=== PATIENT | female | born 1950 | race Caucasian/White ===

== ENCOUNTER 2024-03-07 10:53 | Observation (INO) | payer MEDICARE, BC, SELFPAY ==
[2024-03-07] VITALS (19 sets, daily range): BP systolic 133–169; BP diastolic 49–97; PULSE 73–83; RESP 14–18; TEMP 36.6–37; O2SAT 93–97; BMI 30.8; BMI 31.3
--- NOTE | 2024-03-07 | CRLHL7_ITS ---
For Patients: As a result of the Century Cures Act, medical imaging exams and procedure reports are released immediately into your electronic medical record. You may view this report before your referring provider. If you have questions, please contact your health care provider. Indication : Left-sided numbness. Technique : CT of the brain without intravenous contrast. Comparison: None relevant available at the time of interpretation. Findings: No acute blurring of the tanner-white differentiation. There is no intracranial hemorrhage. The ventricles are proportionate to the cerebral sulci. The 4th ventricle is midline. Basal cisterns appear patent. Small arachnoid cyst right middle cranial fossa. Mild parenchymal volume loss. There is mild patchy periventricular hypodensity, favored to represent chronic ischemic microvascular disease. There is no intracranial mass, mass effect or midline shift identified. No depressed calvarial fracture. Impression: 1. No acute intracranial process. 2. Mild chronic ischemic microvascular disease. The above findings were communicated over the telephone with Dr. Degroot By Dr. Petty at 1118 hours on 03/07/2024. Please note that all CT scans at this facility use dose modulation, iterative reconstruction, and/or weight-based dosing when appropriate to reduce radiation dose to as low as reasonably achievable. Dictated by Ron Petty MD @ 03/07/2024 11:21:27 AM (Electronically Signed)
--- NOTE | 2024-03-07 11:06 | CRLHL7_ITS ---
For Patients: As a result of the Century Cures Act, medical imaging exams and procedure reports are released immediately into your electronic medical record. You may view this report before your referring provider. If you have questions, please contact your health care provider. DATE: 03/07/2024 CLINICAL HISTORY: Patient with focal neurological deficits. TECHNIQUE: Standard helical CT image acquisition of the neck up to the skull base after bolus intravenous contrast enhancement. 2D and 3D MIP images for post-processing were performed and interpreted on an independent workstation and 3D images were permanently archived. COMPARISON: CT same day. 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 The origins of the great vessels from the aortic arch are patent. The origin of the right vertebral artery is patent. The origin of the left vertebral artery is patent. The common carotid arteries are patent. There is no stenosis at the origin of the right internal carotid artery. There is no stenosis at the origin of the left internal carotid artery. There is a short non-occlusive dissection in the proximal cervical segment of the right internal carotid artery without luminal narrowing. The rest of the cervical segments of the internal carotid arteries are patent up to the skull base. The left vertebral artery is dominant. The cervical segments of the vertebral arteries are patent up to the skull base. The visualized lung apices are unremarkable. The thyroid gland demonstrates a 14mm rim-calcified nodule in its right lobe. The soft tissues of the neck are unremarkable. There are degenerative changes in the cervical spine. IMPRESSION: 1. 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 Patent rest of the cervical vasculature. 2. 1.4cm rim-calcified right thyroid nodule. Further evaluation with ultrasound is recommended. Please note that all CT scans at this facility use dose modulation, iterative reconstruction, and/or weight-based dosing when appropriate to reduce radiation dose to as low as reasonably achievable. Dictated by Domingo Smith MD @ 03/07/2024 12:41:11 PM (Electronically Signed)
--- NOTE | 2024-03-07 11:06 | CRLHL7_ITS ---
For Patients: As a result of the Century Cures Act, medical imaging exams and procedure reports are released immediately into your electronic medical record. You may view this report before your referring provider. If you have questions, please contact your health care provider. DATE: 03/07/2024 CLINICAL HISTORY: Patient with focal neurological deficits. TECHNIQUE: Standard helical CT image acquisition through the intracranial circulation following intravenous administration of contrast material with bolus tracking. 2D and 3D MIP images for post-processing were performed and interpreted on an independent workstation and 3D images were permanently archived. COMPARISON: CT same day. FINDINGS: There is no cerebral aneurysm or large vessel occlusion. The right internal carotid artery is normal. The right middle cerebral artery and its branches are normal. The right anterior cerebral artery and its branches are normal. The left internal carotid artery is normal. The left middle cerebral artery and its branches are normal. The left anterior cerebral artery and its branches are normal. The anterior communicating artery is well visualized and appears normal. The right vertebral artery and PICA are normal. The left vertebral artery and PICA are normal. The left vertebral artery is dominant. The basilar artery is patent and appears normal. The right posterior cerebral artery is normal. The left posterior cerebral artery is normal. IMPRESSION: Patent proximal intracranial vasculature without intracranial aneurysms. Please note that all CT scans at this facility use dose modulation, iterative reconstruction, and/or weight-based dosing when appropriate to reduce radiation dose to as low as reasonably achievable. Dictated by Domingo Smith MD @ 03/07/2024 12:42:54 PM (Electronically Signed)
[2024-03-07 11:22] LABS: Basophils Absolute Auto 0.04 K/uL (0.00-0.30); Basophils Percent Auto 0.7 % (0.0-3.0); Eosinophils Absolute Auto 0.12 K/uL (0.00-0.50); Hematocrit 45.2 % (33.0-51.0); Immature Granulocytes Abs Auto 0.01 K/uL (0.00-0.30); Immature Granulocytes Pct Auto 0.2 %; Lymphocytes Percent Auto 19.6 % (20-44); Mean Corpuscular HGB Conc 33 gm/dL (32-36); Mean Corpuscular Hemoglobin 29 pg (26-34); Mean Corpuscular Volume 87 fL (80-100); Monocytes Percent Auto 7.2 % (0.0-11.0); Neutrophils Absolute Auto 4.12 K/uL (1.7-7.0); Neutrophils Percent Auto 70.3 % (42.0-72.0); Platelet Count* 255 K/uL (140-440); RDW Coefficient of Variation % 12.5 % (11.5-15.5); Red Blood Count 5.19 m/uL (4.00-5.20); White Blood Count* 5.86 K/uL (4.50-11.00)
[2024-03-07 11:23] LABS: Slide Review Reflex No
--- NOTE | 2024-03-07 11:27 | CRLHL7_ITS ---
For Patients: As a result of the Century Cures Act, medical imaging exams and procedure reports are released immediately into your electronic medical record. You may view this report before your referring provider. If you have questions, please contact your health care provider. Indication: Stroke. Technique: Multiplanar, multisequence MRI of the brain was performed without intravenous contrast. Comparison: CT head earlier the same day. Findings: The corpus callosum, pituitary gland and clivus appear intact. Mild degenerative change visualized upper cervical spine. There is an 8 mm focus of restricted diffusion within the right thalamus. Associated T2 FLAIR hyperintensity. The ventricles are proportionate to the cerebral sulci. The 4th ventricle appears midline. The basal cisterns appear patent. No abnormal extra-axial fluid collection identified. There is no intracranial mass, abnormal mass-effect or midline shift identified. Mild parenchymal volume loss. Utpe-xi-nnpgijqr scattered T2 FLAIR hyperintense foci within the subcortical and periventricular white matter, favored to represent chronic ischemic microvascular disease. Major intracranial vascular flow voids appear grossly intact. There is a 16 mm T2 hyperintense structure within the extraconal left orbit. Impression: 1. Small acute/subacute right thalamic infarct. 2. Mild to moderate chronic ischemic microvascular disease. 3. Incidental T2 hyperintense structure within the extraconal left orbit. Nonemergent MRI of the orbits would provide further characterization. Dictated by Ron Petty MD @ 03/07/2024 12:33:56 PM (Electronically Signed)
[2024-03-07 11:35] LABS: Albumin* 4.1 g/dL (3.3-5.0); Chloride* 107 mmol/L (96-114)
[2024-03-07 11:36] LABS: Potassium* 3.6 mmol/L (3.6-5.1); Sodium* 140 mmol/L (135-149)
[2024-03-07 11:38] LABS: Creatinine* 0.6 mg/dL (0.5-1.5); Est. Creatinine Clearance* 43.74; Estimated Glomerular Filt Rate 94 ml/min
[2024-03-07 11:39] LABS: Alanine Aminotransferase* 20 U/L (4-35); Alkaline Phosphatase* 101 U/L (40-150); Anion Gap 5 mEq/L (7-15); Aspartate Amino Transferase* 23 U/L (12-35); Bilirubin Direct* 0.3 mg/dL (0.0-0.5); Bilirubin Total* 0.7 mg/dL (0.1-1.5); Blood Urea Nitrogen* 13 mg/dL (7-30); Calcium* 8.8 mg/dL (8.4-10.6); Carbon Dioxide* 28 mmol/L (20-32); Glucose* 104 mg/dL (60-115)
--- NOTE | 2024-03-07 11:41 | ED.GENADULT ---
HPI - General Adult General Chief complaint: Neuro Symptoms/Altered Deficit Stated complaint: L side of body numb Time Seen by Provider: 03/07/24 11:05 Source: patient Mode of arrival: ambulatory Limitations: no limitations History of Present Illness HPI narrative: 73-year-old female coming in today concerned about numbness of the left side of the body. Patient states that she went to bed around 1:00 a.m. and felt normal. She woke up around 4:00 a.m. to use the bathroom and felt slightly off balance. She had to put her arm out to get her to and from the bathroom. At that time she felt numbness of her face and the left side of the body. She then woke up around 9:00 a.m. and continue to have that numbness on the left side of the body including her head, arm and leg. She denies any weakness. She denies any slurred speech. She does not have a headache. 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 [facility] and is here visiting her sister. 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 She takes no prescription medications. Patient denies alcohol or tobacco use. Past surgical history significant for and a inguinal versus abdominal incisional hernia repair. Family history significant for TIAs when her father was in his 70s. Related Data Allergies Allergy/AdvReac Type Severity Reaction Status Date / Time azithromycin AdvReac Intermediate Gastrointestinal Verified 03/07/24 12:44 Upset cefuroxime [From Ceftin] AdvReac Intermediate Hives Verified 03/07/24 12:44 adhesive AdvReac Mild Redness of Verified 03/07/24 12:44 Skin bacitracin AdvReac Mild Redness of Verified 03/07/24 12:44 Skin amoxicillin AdvReac Insomnia Verified 03/07/24 12:44 Review of Systems Status of ROS: Reports: 10 or more systems reviewed and unremarkable except as noted in History and below Exam Narrative: Exam Narrative: Well-nourished well-developed patient in no acute distress. Alert and oriented. Answers questions appropriately. Mood and affect are appropriate. Thoughts are goal oriented and rational. No tangential or magical thinking noted. Patient speaks in full sentences without needing to catch her breath. GCS is 15. Speech is not slurred or pressured. HEENT: Normocephalic atraumatic. Normal facial symmetry. Pupils are equally round reactive to light. Extraocular muscles are intact. Conjunctivae are moist without any icterus noted. Moist mucous membranes. Posterior pharynx is normal. Neck is soft without any lymphadenopathy or thyromegaly. No masses are appreciated. Cardiovascular: Heart is regular rate and rhythm S1 and S2 are present without any murmurs. Lungs: Clear to auscultation bilaterally no wheezes rhonchi or rales are appreciated. Patient takes deep breaths without any discomfort. Abdomen: Soft and nontender nondistended with normal bowel sounds. No guarding or rebound. No masses or organomegaly appreciated. Extremities: Bilateral lower extremities are without edema. Normal DP and PT pulses. Skin: Well perfused without any obvious rashes aside from a small bug bite on the left cheek. Strength is 5/5 of the upper and lower extremities. Reflexes are 2+ and symmetric at the knees. Romberg sign is negative. Cranial nerves 3-12 are normal. Xbgoej-lv-tqov is normal. Afco-yc-gvfv is normal. There is no nystagmus either horizontally or vertically. Gait is normal. Const: Vital Signs, click to edit/add: Vital Signs - 24 hr 03/07/24 11:00 Temperature 98.6 F Pulse Rate [Pulse Oximeter] 82 Respiratory Rate 14 Blood Pressure [Ri ght Upper Arm] 169/91 H Pulse Oximetry 95 Oxygen Delivery Me thod Room Air Course Course ED Course: Upon arrival stroke code was called and after a very brief physical examination patient proceeded to CT scan. Head CT was unremarkable. Point of care troponin was within normal range so patient did proceed with a head and neck CTA. Just prior to going to CTA she did have an evaluation done by stroke neurologist at [facility], Dr. Arshad. EKG, read by me, shows normal sinus rhythm with a pulse of 81. Blood glucose upon arrival was 104. CBC and chemistries were unremarkable. CTA head and neck returned with a small dissection of the right internal carotid. Discussed this with Dr. Arshad who recommended 81 mg of aspirin and Plavix which were both ordered. Brain MRI returned with a small acute/subacute thalamic infarct. Discussed this with Dr. Arshad who recommends admission and further management. Vital Signs Vital signs: Initial Vital Signs Temperature 98.6 F 03/07/24 11:00 Temperature Source Temporal Artery Scan 03/07/24 11:00 Pulse Rate 82 03/07/24 11:00 Pulse Rhythm Regular 03/07/24 11:00 Respiratory Rate 14 03/07/24 11:00 Blood Pressure 169/91 H 03/07/24 11:00 Blood Pressure Mean 117 H 03/07/24 11:00 Blood Pressure Position Supine 03/07/24 11:00 Pulse Oximetry 95 03/07/24 11:00 Oxygen Delivery Method Room Air 03/07/24 11:00 Vital Signs Temperature 98.6 F 03/07/24 11:00 Pulse Rate 82 03/07/24 11:00 Respiratory Rate 14 03/07/24 11:00 Blood Pressure 169/91 H 03/07/24 11:00 Pulse Oximetry 95 03/07/24 11:00 Oxygen Delivery Method Room Air 03/07/24 11:00 Temperature 98.6 F 03/07/24 11:00 Pulse Rate 82 03/07/24 11:00 Respiratory Rate 14 03/07/24 11:00 Blood Pressure 169/91 H 03/07/24 11:00 Pulse Oximetry 95 03/07/24 11:00 Oxygen Delivery Method Room Air 03/07/24 11:00 Medications Administered Medications: Discontinued Medications Generic Name Dose Route Start Last Admin Trade Name Freq PRN Reason Stop Dose Admin Clopidogrel Bisulfate 75 mg 03/07/24 12:29 03/07/24 12:44 Clopidogrel 75 Mg Tablet PO 03/07/24 12:30 75 mg ONCE ONE Administration Medical Decision Making MDM Narrative Medical decision making narrative: 73-year-old female presenting with a stroke. Patient will be admitted for further management. Lab Data Lab results reviewed: Yes I reviewed the patient's lab results Labs: Lab Results 03/07/24 Range/Units 11:12 WBC 5.86 (4.50-11.00) K/uL RBC 5.19 (4.00-5.20) m/uL Hgb 15.0 (12.0-16.0) gm/dL Hct 45.2 (33.0-51.0) % MCV 87 (80-100) fL MCH 29 (26-34) pg MCHC 33 (32-36) gm/dL RDW Coeff of Renata 12.5 (11.5-15.5) % Plt Count 255 (140-440) K/uL Neut % (Auto) 70.3 (42.0-72.0) % Lymph % (Auto) 19.6 L (20-44) % [place] % (Auto) 7.2 (0.0-11.0) % Eos % (Auto) 2.0 (0.0-7.0) % Baso % (Auto) 0.7 (0.0-3.0) % Neut # (Auto) 4.12 (1.7-7.0) K/uL Lymph # (Auto) 1.10 (0.90-2.90) K/uL [place] # (Auto) 0.40 (0.00-0.90) K/UL Eos # (Auto) 0.12 (0.00-0.50) K/uL Baso # (Auto) 0.04 (0.00-0.30) K/uL Abs Immat Gran (auto) 0.01 (0.00-0.30) K/uL Imm/Tot Granulo (auto) 0.2 % Sodium 140 (135-149) mmol/L Potassium 3.6 (3.6-5.1) mmol/L Chloride 107 (96-114) mmol/L Carbon Dioxide 28 (20-32) mmol/L Anion Gap 5 L (7-15) mEq/L BUN 13 (7-30) mg/dL Creatinine 0.6 (0.5-1.5) mg/dL Estimated Creat Clear 43.74 Estimated GFR 94 ml/min Glucose 104 (60-115) mg/dL Calcium 8.8 (8.4-10.6) mg/dL Total Bilirubin 0.7 (0.1-1.5) mg/dL Direct Bilirubin 0.3 (0.0-0.5) mg/dL AST 23 (12-35) U/L ALT 20 (4-35) U/L Alkaline Phosphatase 101 (40-150) U/L Troponin I < 0.01 L (0.01-0.04) ng/mL C-Reactive Protein 0.7 (0.5-1.0) mg/dL Total Protein 7.0 (6.0-8.3) g/dL Albumin 4.1 (3.3-5.0) g/dL Imaging Data CT scan - head: Attestation: I have reviewed the pertinent imaging results. Radiologist's impression: Study:?CT-Head CODE STROKE - w/o-03/07/2024 11:09:44 AM Ordering Physician:Chai Bangura Final Report: Indication : Left-sided numbness. Technique : CT of the brain without intravenous contrast. Comparison: None relevant available at the time of interpretation. Findings: No acute blurring of the tanner-white differentiation. There is no intracranial hemorrhage. The ventricles are proportionate to the cerebral sulci. The 4th ventricle is midline. Basal cisterns appear patent. Small arachnoid cyst right middle cranial fossa. Mild parenchymal volume loss. There is mild patchy periventricular hypodensity, favored to represent chronic ischemic microvascular disease. There is no intracranial mass, mass effect or midline shift identified. No depressed calvarial fracture. Impression: 1. No acute intracranial process. 2. Mild chronic ischemic microvascular disease. The above findings were communicated over the telephone with Dr. Degroot By Dr. Petty at 1118 hours on 03/07/2024. CT angio neck: Attestation: I have reviewed the pertinent imaging results. Radiologist's impression: Procedure(s): CT angio neck Accession Number(s): [id number] cc: Norma Degroot M.D.; Provider,Not a Local~ For Patients: As a result of the Century Cures Act, medical imaging exams and procedure reports are released immediately into your electronic medical record. You may view this report before your referring provider. If you have questions, please contact your health care provider. DATE: 03/07/2024 CLINICAL HISTORY: Patient with focal neurological deficits. TECHNIQUE: Standard helical CT image acquisition of the neck up to the skull base after bolus intravenous contrast enhancement. 2D and 3D MIP images for post-processing were performed and interpreted on an independent workstation and 3D images were permanently archived. COMPARISON: CT same day. 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 The origins of the great vessels from the aortic arch are patent. The origin of the right vertebral artery is patent. The origin of the left vertebral artery is patent. The common carotid arteries are patent. There is no stenosis at the origin of the right internal carotid artery. There is no stenosis at the origin of the left internal carotid artery. There is a short non-occlusive dissection in the proximal cervical segment of the right internal carotid artery without luminal narrowing. The rest of the cervical segments of the internal carotid arteries are patent up to the skull base. The left vertebral artery is dominant. The cervical segments of the vertebral arteries are patent up to the skull base. The visualized lung apices are unremarkable. The thyroid gland demonstrates a 14mm rim-calcified nodule in its right lobe. The soft tissues of the neck are unremarkable. There are degenerative changes in the cervical spine. IMPRESSION: 1. 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 Patent rest of the cervical vasculature. 2. 1.4cm rim-calcified right thyroid nodule. Further evaluation with ultrasound is recommended. Brain MRI: Attestation: I have reviewed the pertinent imaging results. Radiologist's impression: Study:?MRI-Head WO-03/07/2024 12:12:58 PM Ordering Physician:Jorge Green Final Report: Indication: Stroke. Technique: Multiplanar, multisequence MRI of the brain was performed without intravenous contrast. Comparison: CT head earlier the same day. Findings: The corpus callosum, pituitary gland and clivus appear intact. Mild degenerative change visualized upper cervical spine. There is an 8 mm focus of restricted diffusion within the right thalamus. Associated T2 FLAIR hyperintensity. The ventricles are proportionate to the cerebral sulci. The 4th ventricle appears midline. The basal cisterns appear patent. No abnormal extra-axial fluid collection identified. There is no intracranial mass, abnormal mass-effect or midline shift identified. Mild parenchymal volume loss. Astx-zn-nixazkht scattered T2 FLAIR hyperintense foci within the subcortical and periventricular white matter, favored to represent chronic ischemic microvascular disease. Major intracranial vascular flow voids appear grossly intact. There is a 16 mm T2 hyperintense structure within the extraconal left orbit. Impression: 1. Small acute/subacute right thalamic infarct. 2. Mild to moderate chronic ischemic microvascular disease. 3. Incidental T2 hyperintense structure within the extraconal left orbit. Nonemergent MRI of the orbits would provide further characterization. CT angio head: Attestation: I have reviewed the pertinent imaging results. Radiologist's impression: Study:?CT-Head Angio W/ 95CC [id number]/26/2024 11:36:15 AM Ordering Physician:Jorge Green Final Report: DATE: 03/07/2024 CLINICAL HISTORY: Patient with focal neurological deficits. TECHNIQUE: Standard helical CT image acquisition through the intracranial circulation following intravenous administration of contrast material with bolus tracking. 2D and 3D MIP images for post-processing were performed and interpreted on an independent workstation and 3D images were permanently archived. COMPARISON: CT same day. FINDINGS: There is no cerebral aneurysm or large vessel occlusion. The right internal carotid artery is normal. The right middle cerebral artery and its branches are normal. The right anterior cerebral artery and its branches are normal. The left internal carotid artery is normal. The left middle cerebral artery and its branches are normal. The left anterior cerebral artery and its branches are normal. The anterior communicating artery is well visualized and appears normal. The right vertebral artery and PICA are normal. The left vertebral artery and PICA are normal. The left vertebral artery is dominant. The basilar artery is patent and appears normal. The right posterior cerebral artery is normal. The left posterior cerebral artery is normal. IMPRESSION: Patent proximal intracranial vasculature without intracranial aneurysms. ECG Data Attestation: I personally reviewed and interpreted this ECG as follows: Discharge Plan Discharge Clinical Impression: Cerebrovascular accident Patient Disposition: Admitted As Observation Condition: Stable Follow Up/Referrals: Provider,Not a Local [Primary Care Provider] -
[2024-03-07 11:42] LABS: C Reactive Protein* 0.7 mg/dL (0.5-1.0)
[2024-03-07 12:08] LABS: Troponin I* < 0.01 ng/mL (0.01-0.04)
[2024-03-07] MEDS: CLOPIDOGREL 75 MG TABLET PO (12:44)
[2024-03-07] MEDS: ASPIRIN 81 MG TABLET EC PO (12:44)
[2024-03-07] MEDS: ASPIRIN 81 MG TAB.CHEW PO (13:26)
--- NOTE | 2024-03-07 15:05 | P.IMHP_ITS ---
Hospitalist- H&P: SHARONDA History of Present Illness Date Seen: 03/07/24 Chief complaint: L side of body numb Narrative: Eduar Brown is a 73 year old right-handed female admitted with paresthesias and abnormal sensation on the left side of her body. She felt fine when she went to bed at 1:15 a.m. this morning. She woke at 4:29 a.m. to use the bathroom and felt a little bit all altered at that time. She was concerned she might have had of problems with her balance when walking to the bathroom. She did not notice any specific weakness and she did not fall. She awoke again around 9:00 a.m. and noted that her left side of the body did not feel right. She touched her skin and noted that it felt different, like it had fallen the sleep. She did not have any weakness in her left arm or left leg. She also noted that the left side of her face felt different on the right side of her face. She did not have any visual disturbance. No difficulty speaking. No difficulty swallowing. She does not have a headache. She does not have a fever. No previous history of stroke or vascular disease. She is unaware of any risk factors for vascular disease including smoking, dyslipidemia, hypertension, diabetes. She reports that she has otherwise been feeling well and has no other health concerns now and no other recent health concerns or injuries. Evaluation the emergency room included a head CT which only showed mild chronic ischemic microvascular disease. Head CTA showed patent intracranial vasculature without aneurysms. Neck CTA showed short nonocclusive dissection in the proximal cervical segment of the right internal carotid artery without luminal narrowing. Incidentally noted was a 1.4 cm rim calcified thyroid nodule. Ultrasound recommended for follow-up. Brain MRI showed a small acute/subacute right thalamic infarct and mild to moderate chronic ischemic microvascular disease. Also incidentally noted was a T2 hyperintense structure in the left orbit extraconal space. Dedicated nonemergent MRI of the orbit recommended for follow-up. She received aspirin and clopidogrel. Symptoms remain stable to modestly improving. Consultation with Stroke Neurology, Dr. Arshad, reviewed. Review of Systems Narrative: Patient reports no other recent health concerns. [facility] Medical History (Updated 03/07/24 @ 15:31 by Roe Webb MD) Thyroid nodule ?E04.1 - Nontoxic single thyroid nodule (ICD-10) Orbital lesion ?H05.89 - Other disorders of orbit (ICD-10) Gastroesophageal reflux disease ?K21.9 - Gastro-esophageal reflux disease without esophagitis (ICD-10) Obstructive sleep apnea ?G47.33 - Obstructive sleep apnea (adult) (pediatric) (ICD-10) Melanoma ?C43.9 - Malignant melanoma of skin, unspecified (ICD-10) Renal cyst ?N28.1 - Cyst of kidney, acquired (ICD-10) Surgical History (Updated 03/07/24 @ 15:18 by Roe Webb MD) History of cataract surgery ?Z98.49 - Cataract extraction status, unspecified eye (ICD-10) History of left inguinal hernia repair ?Z98.890 - Other specified postprocedural states (ICD-10) ?Z87.19 - Personal history of other diseases of the digestive system (ICD-10) History of section ?Z98.891 - History of uterine scar from previous surgery (ICD-10) Family History (Updated 03/07/24 @ 15:19 by Roe Webb MD) Father High blood pressure Stroke Sister Breast cancer Social History (Updated 03/07/24 @ 15:20 by Roe Webb MD) Narrative: She lives independently in [facility]. She drives. She does not smoke. She does not drink alcohol. Healthcare power of civil litigation attorney is primarily her sister, Tommy, secondarily her daughter Annette Guillaume and then her daughter, Jacqui. Code status is full. What is your current living situation?: I presently have a place to live Problems where you live: no known problems Problems where you live details: N/A In the past 12 months, utilities in danger of being shut off: no In past 12 months, lack of transportation kept you from medical appts, meetings, work, or getting things needed for daily living: no In the past 12 mos, have been you worried that your food would run out before you had money to buy more?: never true In the past 12 mos, the food you bought just didn't last and you didn't have money to buy more?: never true Highest level of school completed/degree received: Master's degree Smoking Status: Never smoker How often do you have a drink containing alcohol: never AUDIT-C Alcohol total score: 0 Non-prescribed substance use: denies use Caffeine: No How often does anyone, including family, friends and others, physically hurt you : never How often does anyone, including family, friends and others, insult or talk down to you: never How often does anyone, including family, friends and others, threaten you with harm: never How often does anyone, including family, friends and others, scream or curse at you: never service: No Meds Home Medications and Allergies Home Medication Comments: Vitamin-D, vitamin B12, PreserVision Allergies Allergy/AdvReac Type Severity Reaction Status Date / Time azithromycin AdvReac Intermediate Gastrointestinal Verified 03/07/24 12:44 Upset cefuroxime [From Ceftin] AdvReac Intermediate Hives Verified 03/07/24 12:44 adhesive AdvReac Mild Redness of Verified 03/07/24 12:44 Skin bacitracin AdvReac Mild Redness of Verified 03/07/24 12:44 Skin amoxicillin AdvReac Insomnia Verified 03/07/24 12:44 Exam Narrative: Exam Narrative: She is alert and appears in no distress. Speech is fluent. She appears to have normal comprehension of speech and no difficulty with word finding or fluency. Face is normal in appearance without obvious asymmetry. Eyes are normal. Pupils are equal round reactive to light. Extraocular movements are full. Visual wooten are intact. She reports subjectively decreased sensation in the left side of her face compared to the right. She does have sensation on her left side however. She has decreased hearing in her left ear compared to her right as well. Oropharynx is normal. Tongue is midline. She moves her tongue left to right very well. Normal gag. She is observed to swallow water without any difficulties. No coughing or choking. Efficient swallow noted. Neck is supple without mass or adenopathy. Respirations are clear to auscultation. Cardiovascular: S1, S2, regular rate and rhythm. Abdomen: Bowel sounds active. Abdomen is soft without tenderness. Upper extremity strength is 5/5 bilaterally in shoulder flexion and extension, elbow flexion and extension, wrist flexion and extension, finger stay extension and block cableman strength. Sensation in her upper extremities is subjectively decreased on the left compared to the right. Pulses are intact bilaterally. No skin rash. Pxczry-dkaj-[id number] is normal bilaterally. Lower extremity examination is normal. She does report decreased sensation on the left compared to the right with soft touch. Strength testing including hip flexion, knee flexion extension, ankle dorsiflexion plantar flexion is bilaterally 5/5. Babinski is symmetric with some withdrawal. Intact pedal pulses Const: Vital Signs, click to edit/add: Vital Signs - 24 hr 03/07/24 11:00 03/07/24 12:30 03/07/24 12:31 Temperature 98.6 F Pulse Rate 79 79 Pulse Rate [Left P ulse Oximeter] Pulse Rate [Pulse Oximeter] 82 Respiratory Rate 14 Blood Pressure 152/82 H Blood Pressure [Ri ght Arm] Blood Pressure [Ri ght Upper Arm] 169/91 H Pulse Oximetry 95 96 95 Oxygen Delivery Me thod Room Air 03/07/24 12:32 03/07/24 12:45 03/07/24 12:47 Temperature Pulse Rate 77 78 79 Pulse Rate [Left P ulse Oximeter] Pulse Rate [Pulse Oximeter] Respiratory Rate Blood Pressure 153/76 H 142/77 H Blood Pressure [Ri ght Arm] Blood Pressure [Ri ght Upper Arm] Pulse Oximetry 95 93 95 Oxygen Delivery Me thod 03/07/24 13:00 03/07/24 13:02 03/07/24 13:15 Temperature Pulse Rate 74 78 78 Pulse Rate [Left P ulse Oximeter] Pulse Rate [Pulse Oximeter] Respiratory Rate Blood Pressure 140/68 H Blood Pressure [Ri ght Arm] Blood Pressure [Ri ght Upper Arm] Pulse Oximetry 95 95 97 Oxygen Delivery Me thod 03/07/24 13:30 03/07/24 13:32 03/07/24 13:33 Temperature Pulse Rate 80 80 82 Pulse Rate [Left P ulse Oximeter] Pulse Rate [Pulse Oximeter] Respiratory Rate Blood Pressure 161/97 H Blood Pressure [Ri ght Arm] Blood Pressure [Ri ght Upper Arm] Pulse Oximetry 96 96 97 Oxygen Delivery Me thod 03/07/24 14:52 Temperature 98.1 F Pulse Rate Pulse Rate [Left P ulse Oximeter] 81 Pulse Rate [Pulse Oximeter] Respiratory Rate 16 Blood Pressure Blood Pressure [Ri ght Arm] 144/78 H Blood Pressure [Ri ght Upper Arm] Pulse Oximetry 97 Oxygen Delivery Me thod Room Air Documenting provider has reviewed patient's vital signs: yes Hospitalist - H&P: Result Labs Labs: Short CBC 03/07/24 Range/Units 11:12 WBC 5.86 (4.50-11.00) K/uL Hgb 15.0 (12.0-16.0) gm/dL Hct 45.2 (33.0-51.0) % Plt Count 255 (140-440) K/uL BMP 03/07/24 11:12 Sodium 140 Potassium 3.6 Chloride 107 Carbon Dioxide 28 BUN 13 Creatinine 0.6 Glucose 104 Calcium 8.8 Cardiac Enzymes 03/07/24 Range/Units 11:12 Troponin I < 0.01 L (0.01-0.04) ng/mL Liver Function 03/07/24 Range/Units 11:12 Total Bilirubin 0.7 (0.1-1.5) mg/dL Direct Bilirubin 0.3 (0.0-0.5) mg/dL AST 23 (12-35) U/L ALT 20 (4-35) U/L Alkaline Phosphatase 101 (40-150) U/L Albumin 4.1 (3.3-5.0) g/dL Imaging MR Brain: Radiologist's impression: Indication: Stroke. Technique: Multiplanar, multisequence MRI of the brain was performed without intravenous contrast. Comparison: CT head earlier the same day. Findings: The corpus callosum, pituitary gland and clivus appear intact. Mild degenerative change visualized upper cervical spine. There is an 8 mm focus of restricted diffusion within the right thalamus. Associated T2 FLAIR hyperintensity. The ventricles are proportionate to the cerebral sulci. The 4th ventricle appears midline. The basal cisterns appear patent. No abnormal extra-axial fluid collection identified. There is no intracranial mass, abnormal mass-effect or midline shift identified. Mild parenchymal volume loss. [id number]-bi-[id number] scattered T2 FLAIR hyperintense foci within the subcortical and periventricular white matter, favored to represent chronic ischemic microvascular disease. Major intracranial vascular flow voids appear grossly intact. There is a 16 mm T2 hyperintense structure within the extraconal left orbit. Impression: 1. Small acute/subacute right thalamic infarct. 2. Mild to moderate chronic ischemic microvascular disease. 3. Incidental T2 hyperintense structure within the extraconal left orbit. Nonemergent MRI of the orbits would provide further characterization. CT- Other: Radiologist's impression: DATE: 03/07/2024 CLINICAL HISTORY: Patient with focal neurological deficits. TECHNIQUE: Standard helical CT image acquisition through the intracranial circulation following intravenous administration of contrast material with bolus tracking. 2D and 3D MIP images for post-processing were performed and interpreted on an independent workstation and 3D images were permanently archived. COMPARISON: CT same day. FINDINGS: There is no cerebral aneurysm or large vessel occlusion. The right internal carotid artery is normal. The right middle cerebral artery and its branches are normal. The right anterior cerebral artery and its branches are normal. The left internal carotid artery is normal. The left middle cerebral artery and its branches are normal. The left anterior cerebral artery and its branches are normal. The anterior communicating artery is well visualized and appears normal. The right vertebral artery and PICA are normal. The left vertebral artery and PICA are normal. The left vertebral artery is dominant. The basilar artery is patent and appears normal. The right posterior cerebral artery is normal. The left posterior cerebral artery is normal. IMPRESSION: Patent proximal intracranial vasculature without intracranial aneurysms. NECK CTA: DATE: 03/07/2024 CLINICAL HISTORY: Patient with focal neurological deficits. TECHNIQUE: Standard helical CT image acquisition through the intracranial circulation following intravenous administration of contrast material with bolus tracking. 2D and 3D MIP images for post-processing were performed and interpreted on an independent workstation and 3D images were permanently archived. COMPARISON: CT same day. FINDINGS: There is no cerebral aneurysm or large vessel occlusion. The right internal carotid artery is normal. The right middle cerebral artery and its branches are normal. The right anterior cerebral artery and its branches are normal. The left internal carotid artery is normal. The left middle cerebral artery and its branches are normal. The left anterior cerebral artery and its branches are normal. The anterior communicating artery is well visualized and appears normal. The right vertebral artery and PICA are normal. The left vertebral artery and PICA are normal. The left vertebral artery is dominant. The basilar artery is patent and appears normal. The right posterior cerebral artery is normal. The left posterior cerebral artery is normal. IMPRESSION: Patent proximal intracranial vasculature without intracranial aneurysms. Assessment and Plan Assessment and plan (1) Cerebrovascular accident: Problem comment: 03/07/2024, right thalamic stroke causing left-sided paresthesias and altered sensation. No motor impairment. No apparent involvement of speech or swallowing. Monitor overnight. Telemetry. Echo. Check lipids. Check hemoglobin A1c. Aspirin, Plavix, statin, ongoing outpatient risk factor modification. Status: Acute (2) Orbital lesion: Problem comment: An extra conal lesion in the left orbit noted. Outpatient MRI. Status: Acute (3) Thyroid nodule: Problem comment: 1.4 cm calcified right thyroid nodule. Ultrasound recommended. Status: Acute Plan Patient admitted to the hospital for ongoing evaluation of stroke and stroke risk factors med. Plan of care discussed in detail with patient. Total Time Spent Total Time Spent: Total time spent is 80 minutes, 60 minutes in coordination of care discussing with patient and sister and other providers evaluation manages stroke and stroke risk factors as well as incidental findings of thyroid nodule and left orbit extraconal mass
--- NOTE | 2024-03-07 18:22 | PC.NURSE ---
Pt pleasant, cooperative, and talkative. Denies pain, headache, SOB, and dizziness. When up to ambulate pt states I'm not dizzy but I just don't feel my normal. Equal strength in all extremities.
[2024-03-07] MEDS: SODIUM CHLORIDE 0.9 % (FLUSH) 10 ML SYRINGE 5 ML IVF (22:11)
[2024-03-08] VITALS (7 sets, daily range): BP systolic 138–148; BP diastolic 68–99; PULSE 65–95; RESP 18; TEMP 36.2–36.8; O2SAT 94–96
--- NOTE | 2024-03-08 05:42 | PC.NURSE ---
Shift note: Pt continue to complain of left sided numbness and discomfort. No neurologic deterioration noted. Pt is SBA in room, A/O and vitally stable. pt had adequate sleep.
[2024-03-08 06:32] LABS: Hemoglobin A1C* 5.7 % (0-5.6)
[2024-03-08 06:33] LABS: Albumin* 3.7 g/dL (3.3-5.0)
[2024-03-08 06:36] LABS: Alanine Aminotransferase* 17 U/L (4-35); Alkaline Phosphatase* 93 U/L (40-150); Aspartate Amino Transferase* 27 U/L (12-35); Bilirubin Direct* 0.3 mg/dL (0.0-0.5); Bilirubin Total* 0.7 mg/dL (0.1-1.5); Total Protein* 6.4 g/dL (6.0-8.3)
[2024-03-08] MEDS: CLOPIDOGREL 75 MG TABLET PO (10:08)
[2024-03-08] MEDS: ASPIRIN 81 MG TABLET EC PO (10:08)
[2024-03-08] MEDS: SODIUM CHLORIDE 0.9 % (FLUSH) 10 ML SYRINGE 5 ML IVF ×2 (10:08→20:59)
[2024-03-08 13:44] LABS: Cholesterol* 138 mg/dL (90-199)
[2024-03-08 13:45] LABS: HDL Cholesterol* 50 mg/dL (>=50); LDL Cholesterol Calculated 75 mg/dL (<100); Triglycerides* 67 mg/dL (40-149)
--- NOTE | 2024-03-08 14:37 | PM.IMPN1 ---
Progress Note: A&P Assessment and plan (1) Cerebrovascular accident: Problem details: 03/07/2024, right thalamic stroke causing left-sided paresthesias and altered sensation. No motor impairment. No apparent involvement of speech or swallowing. Monitor overnight. Telemetry. Echo. Check lipids. Check hemoglobin A1c. Aspirin, Plavix, statin, ongoing outpatient risk factor modification. Status: Acute (2) Orbital lesion: Problem details: An extra conal lesion in the left orbit noted. Outpatient MRI of the orbits to further evaluate. Status: Acute (3) Thyroid nodule: Problem details: 1.4 cm calcified right thyroid nodule. Outpatient ultrasound to further evaluate. Status: Acute Plan Continue in-hospital for neurologic monitoring and finish evaluation for stroke causes. Time Spent With Patient Total time spent: Total time spent today is 60 minutes, 45 minutes in coordination of care and discussing with the patient the nature of her stroke, prevention of future stroke and evaluation for stroke risk factors. We also discussed incidental findings of her thyroid nodule and her orbital mass. Subjective Date Seen: 03/08/24 Interval history: Eduar Brown is a 73 year old right-handed female admitted with paresthesias and abnormal sensation on the left side of her body. She felt fine when she went to bed at 1:15 a.m. this morning. She woke at 4:29 a.m. to use the bathroom and felt a little bit all altered at that time. She was concerned she might have had of problems with her balance when walking to the bathroom. She did not notice any specific weakness and she did not fall. She awoke again around 9:00 a.m. and noted that her left side of the body did not feel right. She touched her skin and noted that it felt different, like it had fallen the sleep. She did not have any weakness in her left arm or left leg. She also noted that the left side of her face felt different on the right side of her face. She did not have any visual disturbance. No difficulty speaking. No difficulty swallowing. She does not have a headache. She does not have a fever. No previous history of stroke or vascular disease. She is unaware of any risk factors for vascular disease including smoking, dyslipidemia, hypertension, diabetes. She reports that she has otherwise been feeling well and has no other health concerns now and no other recent health concerns or injuries. Evaluation the emergency room included a head CT which only showed mild chronic ischemic microvascular disease. Head CTA showed patent intracranial vasculature without aneurysms. Neck CTA showed short nonocclusive dissection in the proximal cervical segment of the right internal carotid artery without luminal narrowing. Incidentally noted was a 1.4 cm rim calcified thyroid nodule. Ultrasound recommended for follow-up. Brain MRI showed a small acute/subacute right thalamic infarct and mild to moderate chronic ischemic microvascular disease. Also incidentally noted was a T2 hyperintense structure in the left orbit extraconal space. Dedicated nonemergent MRI of the orbit recommended for follow-up. She received aspirin and clopidogrel. Symptoms remain stable to modestly improving. Consultation with Stroke Neurology, Dr. Arshad, reviewed. Overnight she reports being about the same as yesterday. She still has some left-sided abnormal sensation. No weakness. No difficulty with speech or swallowing. No difficulties with physical therapy today. Echocardiogram is pending. Lipid profile is unremarkable. Exam Narrative: Exam Narrative: She is alert and appears in no distress. Speech is normal. Respirations are clear to auscultation. Cardiovascular: S1, S2, regular rate and rhythm. Abdomen: Bowel sounds active. Abdomen is soft without tenderness or mass. Subjectively altered sensation on the left compared to the right. There is no facial asymmetry. She moves upper and lower extremities well without focal weakness. She reports some tenderness in the left lower chest proximally the costal margin in the mid axillary line. No apparent rash, bruising or signs of trauma. Palpation over her abdomen in the left flank and left upper quadrant is not tender. Breath sounds are clear in that area. Const: Vital Signs, click to edit/add: Vital Signs - 24 hr 03/07/24 14:52 03/07/24 15:00 03/07/24 16:00 Temperature 98.1 F 98.2 F Pulse Rate 73 Pulse Rate [Left P ulse Oximeter] 81 83 Respiratory Rate 16 18 Blood Pressure [Ri ght Arm] 144/78 H 133/49 L Pulse Oximetry 97 96 Oxygen Delivery Me thod Room Air Room Air 03/07/24 16:55 03/07/24 19:00 03/07/24 22:08 Temperature 98.4 F Pulse Rate Pulse Rate [Left P ulse Oximeter] 80 75 Respiratory Rate 18 18 18 Blood Pressure [Ri ght Arm] 138/80 Pulse Oximetry 96 96 Oxygen Delivery Me thod Room Air Room Air 03/07/24 22:08 03/07/24 23:00 03/08/24 03:00 Temperature 98 F 97.5 F L Pulse Rate 76 Pulse Rate [Left P ulse Oximeter] 75 81 Respiratory Rate 18 18 Blood Pressure [Ri ght Arm] 149/76 H 148/73 H Pulse Oximetry 96 95 Oxygen Delivery Me thod Room Air Room Air 03/08/24 07:00 03/08/24 07:00 03/08/24 07:00 Temperature 97.1 F L Pulse Rate 86 Pulse Rate [Left P ulse Oximeter] 72 72 Respiratory Rate 18 18 Blood Pressure [Ri ght Arm] 146/99 H Pulse Oximetry 96 Oxygen Delivery Me thod Room Air 03/08/24 11:00 Temperature 98.3 F Pulse Rate Pulse Rate [Left P ulse Oximeter] 81 Respiratory Rate 18 Blood Pressure [Ri ght Arm] 146/84 H Pulse Oximetry 96 Oxygen Delivery Me thod Room Air Documenting provider has reviewed patient's vital signs: yes Labs Labs: Laboratory Results - last 24 hr 03/08/24 03/08/24 06:05 12:54 Hemoglobin A1c 5.7 H Total Bilirubin 0.7 Direct Bilirubin 0.3 AST 27 ALT 17 Alkaline Phosphatase 93 Total Protein 6.4 Albumin 3.7 Triglycerides 67 Cholesterol 138 LDL Cholesterol, Calc 75 HDL Cholesterol 50 Lab Acknowledgement Test Added
--- NOTE | 2024-03-08 18:33 | PC.NURSE ---
Shift Note : Pt friendly and cooperative, no speech or swallowing problems noted. Pt continues to c/o of a different feeling on the left arm and leg, states it feels a little numb and tingly. Tele Neuro called for a pt update and had a virtual visit at the bedside. Pt able to walk independently throughout her room, continent, and able to clean/dry small parts of her CPAP machine independently. Tele= NSR, unable to obtain ECHO d/t holiday. Plan is to have ECHO done tomorrow. Pt did c/o discomfort on the lateral torso just under the breast line. She described it as a pressure band and rates discomfort 10/22. aware.
[2024-03-09 02:21] VITALS: BP 147/78; PULSE 74; RESP 18; TEMP 36.5; O2SAT 94
--- NOTE | 2024-03-09 06:15 | PC.NURSE ---
Shift note: Pt had no neurologic deterioration. Independent in room, A/O. Pt continue to show concern about left side abdominal discomfort but refused PRN pain medication. Pt is independent in room. Vitally stable.
[2024-03-09 07:03] VITALS: PULSE 59
[2024-03-09 08:30] VITALS: BP 166/83; PULSE 72; RESP 18; TEMP 36.4; O2SAT 95
[2024-03-09] MEDS: CLOPIDOGREL 75 MG TABLET PO (09:03)
[2024-03-09] MEDS: ASPIRIN 81 MG TABLET EC PO (09:04)
[2024-03-09] MEDS: SODIUM CHLORIDE 0.9 % (FLUSH) 10 ML SYRINGE 5 ML IVF (09:04)
[2024-03-09 11:18] VITALS: BP 154/54; PULSE 80; RESP 18; TEMP 36.9; O2SAT 93
[2024-03-09 11:45] LABS: Basophils Absolute Auto 0.03 K/uL (0.00-0.30); Basophils Percent Auto 0.4 % (0.0-3.0); Eosinophils Absolute Auto 0.11 K/uL (0.00-0.50); Eosinophils Percent Auto 1.5 % (0.0-7.0); Hematocrit 46.1 % (33.0-51.0); Hemoglobin* 15.1 gm/dL (12.0-16.0); Immature Granulocytes Abs Auto 0.01 K/uL (0.00-0.30); Immature Granulocytes Pct Auto 0.1 %; Lymphocytes Percent Auto 16.3 % (20-44); Mean Corpuscular HGB Conc 33 gm/dL (32-36); Mean Corpuscular Hemoglobin 29 pg (26-34); Mean Corpuscular Volume 88 fL (80-100); Monocytes Percent Auto 8.2 % (0.0-11.0); Neutrophils Percent Auto 73.5 % (42.0-72.0); Platelet Count* 252 K/uL (140-440); RDW Coefficient of Variation % 12.7 % (11.5-15.5); Red Blood Count 5.26 m/uL (4.00-5.20); White Blood Count* 7.32 K/uL (4.50-11.00)
[2024-03-09 11:57] LABS: Slide Review Reflex No
[2024-03-09 12:05] LABS: Troponin I* < 0.01 ng/mL (0.01-0.04)
[2024-03-09 12:12] LABS: D Dimer Quantitative* 0.36 ug/ml (0.00-0.50)
[2024-03-09 12:22] VITALS: BP 146/74
--- NOTE | 2024-03-09 13:21 | CRLHL7_ITS ---
For Patients: As a result of the Century Cures Act, medical imaging exams and procedure reports are released immediately into your electronic medical record. You may view this report before your referring provider. If you have questions, please contact your health care provider. INDICATION: Left-sided chest pain COMPARISON: None TECHNIQUE: PA and lateral views of the chest were acquired FINDINGS: TUBES AND LINES: None. HEART AND MEDIASTINUM: The heart size is normal. The mediastinal contour appears normal for patient age. LUNGS AND PLEURAL SPACES: The lungs appear normal.The pleural spaces are unremarkable. OSSEOUS STRUCTURES: Age-appropriate appearance. No acute focal finding. IMPRESSION: No evidence of active pulmonary disease. Dictated by Julio César Cárdenas MD @ 03/09/2024 2:42:57 PM (Electronically Signed)
--- NOTE | 2024-03-09 15:17 | P.DS_ITS ---
DS: Providers Provider Date Seen: 03/09/24 Date of admission: 03/07/24 13:38 Primary care physician: Not a Local Provider Admitting Clinician: Roe Webb MD Attending Physician on discharge: Roe Webb MD Date of Discharge: 03/09/24 DS: Diagnosis Discharge Diagnosis (1) Cerebrovascular accident: Status: Acute Problem details: 03/07/2024, right thalamic stroke causing left-sided paresthesias and altered sensation. No motor impairment. No apparent involvement of speech or swallowing. She was in sinus rhythm through her hospital stay. Echocardiogram is pending before discharge. Initiated on aspirin 81 mg indefinitely, clopidogrel for 21 days. Normal lipids. Borderline elevated blood sugar and blood pressure. (2) Orbital lesion: Status: Acute Problem details: An extra conal lesion in the left orbit noted. Outpatient MRI of the orbits to further evaluate. (3) Thyroid nodule: Status: Acute Problem details: 1.4 cm calcified right thyroid nodule. Outpatient ultrasound to further evaluate. (4) Chest pain: Status: Acute Problem details: Patient reports constant left chest/flank pain and tenderness to palpation over the lower ribs in the mid axillary line. Troponin, D-dimer, chest x-ray all unremarkable. No other cardio respiratory symptoms. DS: Summary Hospital Course Hospital Course: Eduar Brown is a 73 year old right-handed female admitted with paresthesias and abnormal sensation on the left side of her body. She felt fine when she went to bed at 1:15 a.m. this morning. She woke at 4:29 a.m. to use the bathroom and felt a little bit all altered at that time. She was concerned she might have had of problems with her balance when walking to the bathroom. She did not notice any specific weakness and she did not fall. She awoke again around 9:00 a.m. and noted that her left side of the body did not feel right. She touched her skin and noted that it felt different, like it had fallen the sleep. She did not have any weakness in her left arm or left leg. She also noted that the left side of her face felt different on the right side of her face. She did not have any visual disturbance. No difficulty speaking. No difficulty swallowing. She does not have a headache. She does not have a fever. No previous history of stroke or vascular disease. She is unaware of any risk factors for vascular disease including smoking, dyslipidemia, hyperte nsion, diabetes. She reports that she has otherwise been feeling well and has no other health concerns now and no other recent health concerns or injuries. Evaluation the emergency room included a head CT which only showed mild chronic ischemic microvascular disease. Head CTA showed patent intracranial vasculature without aneurysms. Neck CTA showed short nonocclusive dissection in the proximal cervical segment of the right internal carotid artery without luminal narrowing. Incidentally noted was a 1.4 cm rim calcified thyroid nodule. Ultrasound recommended for follow-up. Brain MRI showed a small acute/subacute right thalamic infarct and mild to moderate chronic ischemic microvascular disease. Also incidentally noted was a T2 hyperintense structure in the left orbit extraconal space. Dedicated nonemergent MRI of the orbit recommended for follow-up. She received aspirin and clopidogrel. Symptoms remain stable to modestly improving. Consultation with Stroke Neurology, Dr. Arshad, reviewed. Overnight she reports being about the same as yesterday. She still has some left-sided abnormal sensation. No weakness. No difficulty with speech or swallowing. No difficulties with physical therapy today. Echocardiogram is pending. Lipid profile is unremarkable. Blood pressure is borderline elevated. For the last day and a half she reports some left-sided chest pain. She points to the left lateral chest wall at the costal margin between anterior and mid axillary line. This area is tender to palpate. There is no bruising. No rash. Exam is otherwise unremarkable. Troponin, D-dimer, chest x-ray all normal. Status at Discharge Functional status at discharge: independent ambulation Overall status at discharge: patient is progressing back to baseline Time Spent with Patient Time attestation: Total time spent providing and/or coordinating discharge services:40 mins. Time spent: Greater than 30 minutes Exam Narrative: Exam Narrative: She is alert and appears in no distress. Respirations are clear to auscultation. Inspection of her back is normal. No trauma or rash. Inspection of her left chest wall is normal without signs of trauma or rash. She has tenderness to the ribs at the costal margin from the mid axillary line to the anterior axillary line. No tenderness over the flank below the ribs or in the left upper quadrant of the abdomen. Anterior chest is normal. Heart sounds are normal with regular rate and rhythm. Neurologic: No facial asymmetry. Speech is normal. Subjectively altered sensation in her left compared to her right side in her arms. She moves all 4 extremities well. Const: Vital Signs, click to edit/add: Vital Signs - 24 hr 03/08/24 19:00 03/08/24 22:34 03/08/24 22:34 Temperature 98.3 F 97.7 F Pulse Rate Pulse Rate [Left P ulse Oximeter] 83 79 79 Respiratory Rate 18 18 18 Blood Pressure [Ri ght Arm] 139/68 144/73 H Pulse Oximetry 95 94 Oxygen Delivery Me thod Room Air Room Air 03/08/24 23:00 03/09/24 02:21 03/09/24 07:03 Temperature 97.7 F Pulse Rate 65 59 L Pulse Rate [Left P ulse Oximeter] 74 Respiratory Rate 18 Blood Pressure [Ri ght Arm] 147/78 H Pulse Oximetry 94 Oxygen Delivery Me thod Room Air 03/09/24 08:30 03/09/24 08:30 03/09/24 11:18 Temperature 97.5 F L 98.4 F Pulse Rate Pulse Rate [Left P ulse Oximeter] 72 72 80 Respiratory Rate 18 18 18 Blood Pressure [Ri ght Arm] 166/83 H 154/54 H Pulse Oximetry 95 93 Oxygen Delivery Me thod Room Air Room Air 03/09/24 12:22 Temperature Pulse Rate Pulse Rate [Left P ulse Oximeter] Respiratory Rate Blood Pressure [Ri ght Arm] 146/74 H Pulse Oximetry Oxygen Delivery Me thod Documenting provider has reviewed patient's vital signs: yes DS: Data Data Completed and Pending Labs on day of discharge: Labs from last 24 hours 03/09/24 03/09/24 03/09/24 11:42 11:18 11:12 WBC 7.32 RBC 5.26 H Hgb 15.1 Hct 46.1 MCV 88 MCH 29 MCHC 33 RDW Coeff of Renata 12.7 Plt Count 252 Neut % (Auto) 73.5 H Lymph % (Auto) 16.3 L [place] % (Auto) 8.2 Eos % (Auto) 1.5 Baso % (Auto) 0.4 Neut # (Auto) 5.40 Lymph # (Auto) 1.20 [place] # (Auto) 0.60 Eos # (Auto) 0.11 Baso # (Auto) 0.03 Abs Immat Gran (auto) 0.01 Imm/Tot Granulo (auto) 0.1 D-Dimer Quant (PE/DVT) 0.36 Troponin I < 0.01 L Discharge Plan Discharge Disposition: Home, Self-Care Date of Admission: 03/07/24 13:38 Attending Provider on Discharge: Roe Webb Primary Care Provider: Provider,Not a Local Condition: Stable Anticipated Discharge Date/Time: 03/09/24 16:00 Discharge Medications: New clopidogrel 75 mg Tablet 75 mg PO DAILY Qty: 20 0RF aspirin 81 mg Tablet,Delayed Release (Dr/Ec) 81 mg PO DAILY Qty: 100 0RF No Action No Known Home Medications Discharge Orders: Discharge Order (Routine); Ordered 03/09/24 Ordered By: Roe Webb Additional Instructions: Follow-up with your primary care doctor in 1-2 weeks for recheck of your stroke symptoms and further evaluation of the incidental findings, the mass in your left orbit and your thyroid nodule. Activity Level: No Restrictions Discharge Diet: Heart Healthy (2 gm sodium, low fat) Follow Up Appointments: Provider,Not a Local [Primary Care Provider] - Forms: [employer] Info Instructions
[2024-03-09 15:30] VITALS: BP 146/74; PULSE 75; PULSE 80; RESP 18; TEMP 36.9; O2SAT 93
--- NOTE | 2024-03-09 19:00 | PC.NURSE ---
discharge. pt has been pleasant. she is alert x4 . still has left side/flank pain. md was updated. labs and x ray done. Pt is up ab aggie. Tele/ NSR, ECHO done. pt is eating, drinking and voiding. SL was d/c intact. went over discharge packet. pt signed belonging list. she signed medical records form, and paperwork was given to her. she got a w/c ride to her car with all belongings and apaperwork
[2024-03-17 15:17] LABS: Creatinine Point of Care* 0.7 mg/dl (0.6-1.3)
== END 2024-03-09 17:45 | disposition home or self-care (01) ==
LOC: ED 13:08 → MEDSURG 13:39
PROVIDERS: Admitting Provider Family Medicine; Emergency Provider Family Medicine; Visit Provider Family Medicine
DX: I63.9 Cerebral infarction, unspecified (principal); I69.354 Hemiplegia and hemiparesis following cerebral infarction affecting left non-dominant side; H05.89 Other disorders of orbit; E04.1 Nontoxic single thyroid nodule; N28.1 Cyst of kidney, acquired; R07.9 Chest pain, unspecified; I49.8 Other specified cardiac arrhythmias; G83.34 Monoplegia, unspecified affecting left nondominant side; C43.9 Malignant melanoma of skin, unspecified; G47.33 Obstructive sleep apnea (adult) (pediatric); I10 Essential (primary) hypertension; K21.9 Gastro-esophageal reflux disease without esophagitis; Z99.89 Dependence on other enabling machines and devices; Z98.49 Cataract extraction status, unspecified eye; Z98.891 History of uterine scar from previous surgery; Z82.49 Family history of ischemic heart disease and other diseases of the circulatory system; Z98.890 Other specified postprocedural states
CPT/HCPCS: 36415; 70450; 70496; 70498; 70551; 71046; 80048; 80061; 80076; 82565; 82962; 83036; 84484; 85025; 85379; 86140; 93005; 93306; 94761; 97116; 97161; 97166; 97535; 99285; 99291; G0378; A9270; Q9967

== ENCOUNTER 2024-03-11 19:32 | Emergency (ER) | payer MEDICARE, BC, SELFPAY ==
[2024-03-11 19:39] VITALS: BP 154/93; PULSE 94; RESP 18; TEMP 36.2; O2SAT 96; BMI 34.0
[2024-03-11 20:25] LABS: Basophils Absolute Auto 0.02 K/uL (0.00-0.30); Basophils Percent Auto 0.3 % (0.0-3.0); Eosinophils Absolute Auto 0.05 K/uL (0.00-0.50); Eosinophils Percent Auto 0.7 % (0.0-7.0); Hematocrit 45.6 % (33.0-51.0); Hemoglobin* 15.1 gm/dL (12.0-16.0); Lymphocytes Percent Auto 17.5 % (20-44); Mean Corpuscular HGB Conc 33 gm/dL (32-36); Mean Corpuscular Hemoglobin 29 pg (26-34); Mean Corpuscular Volume 86 fL (80-100); Monocytes Percent Auto 7.3 % (0.0-11.0); Neutrophils Percent Auto 74.2 % (42.0-72.0); Platelet Count* 272 K/uL (140-440); RDW Coefficient of Variation % 12.6 % (11.5-15.5); Red Blood Count 5.28 m/uL (4.00-5.20); White Blood Count* 6.85 K/uL (4.50-11.00)
[2024-03-11 20:28] LABS: Slide Review Reflex No
--- NOTE | 2024-03-11 20:32 | CRLHL7_ITS ---
For Patients: As a result of the Century Cures Act, medical imaging exams and procedure reports are released immediately into your electronic medical record. You may view this report before your referring provider. If you have questions, please contact your health care provider. INDICATION: Upper extremity swelling TECHNIQUE: Ultrasound venous duplex left upper extremity. Real-time tanner-scale (B mode 2D), color Doppler, and spectral Doppler imaging were performed with compression and augmentation. COMPARISON: None FINDINGS: Deep veins: The visualized left internal jugular, subclavian, brachial, and axillary veins are fully compressible, demonstrate normal color flow, and normal response to mechanical augmentation. The Duplex Doppler waveforms are normal in appearance. Superficial veins: Thrombosis of the cephalic vein is noted along the distal brachium to the antecubital fossa. Soft tissue: No masses or cysts are identified. No adenopathy is seen. IMPRESSIONS: 1. No sonographic evidence of acute deep venous thrombosis seen. 2. Thrombosis of the cephalic vein is noted along the distal brachium to the antecubital fossa. Dictated by Sandip Pope MD @ 03/11/2024 9:19:16 PM Dictated by: Sandip Pope MD @ 03/11/2024 21:22:26 (Electronically Signed)
[2024-03-11 20:39] LABS: Albumin* 4.3 g/dL (3.3-5.0); Chloride* 107 mmol/L (96-114); Sodium* 138 mmol/L (135-149)
[2024-03-11 20:40] LABS: Potassium* 3.8 mmol/L (3.6-5.1)
--- NOTE | 2024-03-11 20:40 | ED.GENADULT ---
HPI - General Adult General Date Seen: 03/11/24 Chief complaint: Extremity Pain/Injury, Upper Stated complaint: L arm pressure/pain Time Seen by Provider: 03/11/24 20:01 Source: patient Mode of arrival: ambulatory Limitations: no limitations History of Present Illness HPI narrative: Patient is a 73-year-old female with a right thumb Case stroke causing left-sided paresthesias are noted sensation diagnosed on 03/07/2024. She has continued to have this numbness in her left arm is not any different. Was started on aspirin and Plavix. She states was she is in the hospital was started having left abdominal pain that seemed to radiate into her chest on the left side. She states feels like a superficial nature and very tender to palpation. Since then has also noticed the pain seemed to have moved up into her left forearm. She thinks her left arm is a little bit swollen compared to her right arm. She is concerned she may have developed a clot in this arm. Denies shortness of breath, fevers, chills, headache, weakness, diarrhea, constipation. States she is eating and drinking without issues. Has been having normal bowel movements. No other concerns noted at this time. Related Data Home Medications ?Medication ?Instructions ?Recorded ?Confirmed No Known Home Medications 03/08/24 03/08/24 Previous Rx's ?Medication ?Instructions ?Recorded aspirin 81 mg tablet,delayed 81 mg PO DAILY #100 tabs 03/08/24 release clopidogrel 75 mg tablet 75 mg PO DAILY #20 tabs 03/08/24 Allergies Allergy/AdvReac Type Severity Reaction Status Date / Time azithromycin AdvReac Intermediate Gastrointestinal Verified 03/11/24 21:37 Upset cefuroxime [From Ceftin] AdvReac Intermediate Hives Verified 03/11/24 21:37 adhesive AdvReac Mild Redness of Verified 03/11/24 21:37 Skin bacitracin AdvReac Mild Redness of Verified 03/11/24 21:37 Skin amoxicillin AdvReac Insomnia Verified 03/11/24 21:37 Review of Systems Status of ROS: Reports: 10 or more systems reviewed and unremarkable except as noted in History and below [facility] Medical History Thyroid nodule ?E04.1 - Nontoxic single thyroid nodule (ICD-10) Orbital lesion ?H05.89 - Other disorders of orbit (ICD-10) Gastroesophageal reflux disease ?K21.9 - Gastro-esophageal reflux disease without esophagitis (ICD-10) Obstructive sleep apnea ?G47.33 - Obstructive sleep apnea (adult) (pediatric) (ICD-10) Melanoma ?C43.9 - Malignant melanoma of skin, unspecified (ICD-10) Renal cyst ?N28.1 - Cyst of kidney, acquired (ICD-10) Surgical History History of cataract surgery ?Z98.49 - Cataract extraction status, unspecified eye (ICD-10) History of left inguinal hernia repair ?Z98.890 - Other specified postprocedural states (ICD-10) ?Z87.19 - Personal history of other diseases of the digestive system (ICD-10) History of section ?Z98.891 - History of uterine scar from previous surgery (ICD-10) Family History Father High blood pressure Stroke Sister Breast cancer Social History Narrative: She lives independently in [facility]. She drives. She does not smoke. She does not drink alcohol. Healthcare power of employment attorney is primarily her sister, Tommy, secondarily her daughter Annette Guillaume and then her daughter, Jacqui. Code status is full. What is your current living situation?: I presently have a place to live Problems where you live: no known problems Problems where you live details: N/A In the past 12 months, utilities in danger of being shut off: no In past 12 months, lack of transportation kept you from medical appts, meetings, work, or getting things needed for daily living: no In the past 12 mos, have been you worried that your food would run out before you had money to buy more?: never true In the past 12 mos, the food you bought just didn't last and you didn't have money to buy more?: never true Highest level of school completed/degree received: Master's degree Smoking Status: Never smoker How often do you have a drink containing alcohol: never AUDIT-C Alcohol total score: 0 Non-prescribed substance use: denies use Caffeine: No How often does anyone, including family, friends and others, physically hurt you: never How often does anyone, including family, friends and others, insult or talk down to you: never How often does anyone, including family, friends and others, threaten you with harm: never How often does anyone, including family, friends and others, scream or curse at you: never service: No Exam Narrative: Exam Narrative: Const: Well-nourished, Well-developed, in mild distress Eyes: PERRL, no conjunctival injection, and symmetrical lids HENT: Atraumatic external nose and ears. Moist mucous membranes. Neck: Symmetric, trachea midline, No thyromegaly. CVS: RRR, No murmurs or gallops. Peripheral pulses 2+ and equal in all extremities RESP: Unlabored respiratory effort. Clear to auscultation bilaterally. GI: Left upper quadrant tenderness, no tenderness noted to rest of abdomen Nondistended, No rebound or guarding. MSK:Extremities w/o deformity, Normal Active ROM Skin: Warm, Dry. No rashes or lesions. Neuro: Normal Muscle tone, No focal neurological deficits other than decreased sensation to left upper extremity Psych: Awake, Alert, & Oriented x3. Appropriate mood and affect. Const: Vital Signs, click to edit/add: Vital Signs - 24 hr 03/11/24 19:39 Temperature 97.1 F L Pulse Rate [Pulse Oximeter] 94 Respiratory Rate 18 Blood Pressure [Ri ght Upper Arm] 154/93 H Pulse Oximetry 96 Oxygen Delivery Me thod Room Air Course Vital Signs Vital signs: Initial Vital Signs Temperature 97.1 F L 03/11/24 19:39 Temperature Source Temporal Artery Scan 03/11/24 19:39 Pulse Rate 94 03/11/24 19:39 Pulse Rhythm Regular 03/11/24 19:39 Respiratory Rate 18 03/11/24 19:39 Blood Pressure 154/93 H 03/11/24 19:39 Blood Pressure Mean 113 H 03/11/24 19:39 Blood Pressure Position Sitting 03/11/24 19:39 Pulse Oximetry 96 03/11/24 19:39 Oxygen Delivery Method Room Air 03/11/24 19:39 Vital Signs Temperature 97.1 F L 03/11/24 19:39 Pulse Rate 94 03/11/24 19:39 Respiratory Rate 18 03/11/24 19:39 Blood Pressure 154/93 H 03/11/24 19:39 Pulse Oximetry 96 03/11/24 19:39 Oxygen Delivery Method Room Air 03/11/24 19:39 Temperature 97.1 F L 03/11/24 19:39 Pulse Rate 94 03/11/24 19:39 Respiratory Rate 18 03/11/24 19:39 Blood Pressure 154/93 H 03/11/24 19:39 Pulse Oximetry 96 03/11/24 19:39 Oxygen Delivery Method Room Air 03/11/24 19:39 Medical Decision Making MDM Narrative Medical decision making narrative: Patient is a 73-year-old female presenting for multiple complaints. Her main concern was left upper abdominal and left arm pain. She is concerned about swelling and a blood clot to her left upper extremity. No ultrasound will be done to better evaluate this. With her left upper quadrant abdominal pain going up into her chest seems unlikely that this is cardiac related we will do an EKG and troponin. Will also do a lipase, CMP, CBC, magnesium. With the chest pain and the concern for blood clot I will do a D-dimer also. CBC, CMP shows no concerning abnormalities. Troponin within normal limits. EKG shows no concerning findings. Ultrasound was done showing a superficial thrombophlebitis of the cephalic vein down to the antecubital fossa. Of note the patient had IV and for 3 days just prior to this. At this time I do not believe this needs to be treated by did give her return precautions and to monitor to make sure it is not getting worse. She states she follow-up with her primary care provider on it. Since he was having the pain and left upper quadrant and chest I will do a CT scan of the chest abdomen pelvis. Will be with IV contrast. Does not need to be CTA of the chest as her D-dimer age adjusted is within normal limits. CT scan of the chest and abdomen shows no acute cardiothoracic or intra-abdominal issues. There was a hypodense lesion within the inferior cervix. I informed her of this and she was speak to her primary care provider about an outpatient pelvic ultrasound or MRI if they believe it is necessary. She will be discharged at this time is agreeable to this plan. Lab Data Labs: Lab Results 03/11/24 Range/Units 20:19 WBC 6.85 (4.50-11.00) K/uL RBC 5.28 H (4.00-5.20) m/uL Hgb 15.1 (12.0-16.0) gm/dL Hct 45.6 (33.0-51.0) % MCV 86 (80-100) fL MCH 29 (26-34) pg MCHC 33 (32-36) gm/dL RDW Coeff of Renata 12.6 (11.5-15.5) % Plt Count 272 (140-440) K/uL Neut % (Auto) 74.2 H (42.0-72.0) % Lymph % (Auto) 17.5 L (20-44) % [place] % (Auto) 7.3 (0.0-11.0) % Eos % (Auto) 0.7 (0.0-7.0) % Baso % (Auto) 0.3 (0.0-3.0) % Neut # (Auto) 5.10 (1.7-7.0) K/uL Lymph # (Auto) 1.20 (0.90-2.90) K/uL [place] # (Auto) 0.50 (0.00-0.90) K/UL Eos # (Auto) 0.05 (0.00-0.50) K/uL Baso # (Auto) 0.02 (0.00-0.30) K/uL Abs Immat Gran (auto) 0.00 (0.00-0.30) K/uL Imm/Tot Granulo (auto) 0.0 % D-Dimer Quant (PE/DVT) 0.51 H (0.00-0.50) ug/ml Sodium 138 (135-149) mmol/L Potassium 3.8 (3.6-5.1) mmol/L Chloride 107 (96-114) mmol/L Carbon Dioxide 27 (20-32) mmol/L Anion Gap 4 L (7-15) mEq/L BUN 13 (7-30) mg/dL Creatinine 0.6 (0.5-1.5) mg/dL Estimated Creat Clear 40.21 Estimated GFR 94 ml/min Glucose 108 (60-115) mg/dL Calcium 9.0 (8.4-10.6) mg/dL Magnesium 2.1 (1.5-2.6) mg/dL Total Bilirubin 0.7 (0.1-1.5) mg/dL AST 26 (12-35) U/L ALT 20 (4-35) U/L Alkaline Phosphatase 102 (40-150) U/L Troponin I < 0.01 L (0.01-0.04) ng/mL Total Protein 7.2 (6.0-8.3) g/dL Albumin 4.3 (3.3-5.0) g/dL Lipase 41 (23-300) U/L Imaging Data CT Chest/Ab/Pelvis: Attestation: I have reviewed the pertinent imaging results. Radiologist's impression: 1. No acute cardiothoracic or intraabdominal process identified. 2. Hypodense lesions at the inferior uterus/cervix may represent conglomerate fibroids versus cervical neoplastic process. Correlate with physical exam, laboratory findings, and consider further evaluation with non-emergent pelvic ultrasound or MRI. 3. Multiple large renal cysts bilaterally. Please note that all CT scans at this facility use dose modulation, iterative reconstruction, and/or weight-based dosing when appropriate to reduce radiation dose to as low as reasonably achievable. Dictated by Kari Thomson MD @ 03/11/2024 10:12:54 PM Venous US: Attestation: I have reviewed the pertinent imaging results. Radiologist's impression: 1. No sonographic evidence of acute deep venous thrombosis seen. 2. Thrombosis of the cephalic vein is noted along the distal brachium to the antecubital fossa. Dictated by Sandip Pope MD @ 03/11/2024 9:19:16 PM ECG Data Attestation: I personally reviewed and interpreted this ECG as follows: Prior ECG tracings: available for review Interpretation: Normal sinus rhythm with a rate of 86 beats per minute, normal intervals, normal axis, no ST or T-wave abnormalities. Appears similar to previous EKG on file Discharge Plan Discharge Clinical Impression: Abdominal muscle strain Qualifiers: Encounter type: initial encounter Qualified Code(s): S39.011A - Strain of muscle, fascia and tendon of abdomen, initial encounter Superficial thrombophlebitis of arm Qualifiers: Laterality: left Qualified Code(s): I80.8 - Phlebitis and thrombophlebitis of other sites Patient Disposition: Home, Self-Care Condition: Stable Instructions: Superficial Thrombophlebitis (ED) Additional Instructions: Continue take your Plavix and aspirin. I believe your superficial blood clot is from your previous IV. You are with unlikely to get a blood clot of the lungs from this but if you do develop shortness of breath or chest pain return to emergency department for re-evaluation. If he notice the pain in the arm is getting worse with increased swelling to the ER is also a good time to either follow-up with the primary care provider or return to emergency department for re-evaluation. There is a lesion seen on your uterus and cervix. Is recommended you follow-up on this with your OB Gyne or primary care provider. Prescriptions: No Action No Known Home Medications clopidogrel 75 mg Tablet 75 mg PO DAILY Qty: 20 0RF aspirin 81 mg Tablet,Delayed Release (Dr/Ec) 81 mg PO DAILY Qty: 100 0RF Follow Up/Referrals: Provider,Not a Local [Primary Care Provider] - Stand Alone Forms: [employer] Info Instructions
[2024-03-11 20:42] LABS: Alkaline Phosphatase* 102 U/L (40-150); Anion Gap 4 mEq/L (7-15); Aspartate Amino Transferase* 26 U/L (12-35); Bilirubin Total* 0.7 mg/dL (0.1-1.5); Blood Urea Nitrogen* 13 mg/dL (7-30); Carbon Dioxide* 27 mmol/L (20-32); Creatinine* 0.6 mg/dL (0.5-1.5); Est. Creatinine Clearance* 40.21; Estimated Glomerular Filt Rate 94 ml/min; Total Protein* 7.2 g/dL (6.0-8.3)
[2024-03-11 20:43] LABS: Alanine Aminotransferase* 20 U/L (4-35); D Dimer Quantitative* 0.51 ug/ml (0.00-0.50); Glucose* 108 mg/dL (60-115); Lipase* 41 U/L (23-300); Magnesium* 2.1 mg/dL (1.5-2.6)
[2024-03-11 20:55] LABS: Troponin I* < 0.01 ng/mL (0.01-0.04)
--- NOTE | 2024-03-11 20:56 | CRLHL7_ITS ---
For Patients: As a result of the 21st Century Cures Act, medical imaging exams and procedure reports are released immediately into your electronic medical record. You may view this report before your referring provider. If you have questions, please contact your health care provider. INDICATION: LEFT SIDED CHEST PAIN, LUQ ABD PAIN, KNOWN KIDNEY CYST TECHNIQUE: CT chest, abdomen and pelvis acquired with 94 milliliters of Isovue 370 IV contrast. COMPARISON: None. FINDINGS: CHEST: Cardiovascular structures: Heart size is normal. Thoracic aorta and main pulmonary artery are normal in caliber. Aberrant right subclavian. Mediastinum and mat: No mass or adenopathy. Calcified pericardial lymph node. Lungs and pleura: Lungs and pleural spaces are clear. No suspicious nodules, infiltrates, or effusions. Chest wall and axilla: No mass or adenopathy. Bones: No suspicious bone lesions. Unremarkable for age. ABDOMEN AND PELVIS: Liver: Three hypodensities in the left hepatic lobe, largest measuring 3.0 cm, likely hemangiomas or cysts.. Gallbladder and bile ducts: Unremarkable. Pancreas: Unremarkable. Spleen: Unremarkable. Adrenal glands: Unremarkable. Kidneys: Large right inferior pole renal cyst, measuring up to 14.9 cm in diameter. The cyst appears simple. Additional right superior pole cyst. Multiple non-obstructing stones in the right kidney measuring up to 12 mm. No hydronephrosis or hydroureter. No left renal stones. Multiple subcentimeter hypodensities int he left kidney, likely cysts. GI tract: No bowel obstruction. Appendix is within normal limits. Vascular structures: Unremarkable. Lymph nodes: Unremarkable. Miscellaneous: Small right fat containing hernia. No free air or significant free fluid. Pelvic Organs: Lobulated hypodense lesion at the lower uterus/cervix. The conglomerate measures 6.5 x 4.8 x 4.9 cm. Left ovarian cyst measuring 3.4 cm. Bones: No suspicious bone lesions. Diffuse demineralization. Unremarkable for age. IMPRESSION: 1. No acute cardiothoracic or intraabdominal process identified. 2. Hypodense lesions at the inferior uterus/cervix may represent conglomerate fibroids versus cervical neoplastic process. Correlate with physical exam, laboratory findings, and consider further evaluation with non-emergent pelvic ultrasound or MRI. 3. Multiple large renal cysts bilaterally. Please note that all CT scans at this facility use dose modulation, iterative reconstruction, and/or weight-based dosing when appropriate to reduce radiation dose to as low as reasonably achievable. Dictated by Kari Thomson MD @ 03/11/2024 10:12:54 PM (Electronically Signed)
== END 2024-03-11 23:07 | disposition home or self-care (01) ==
PROVIDERS: Emergency Provider Student in an Organized Health Care Education/Training Program
DX: I80.8 Phlebitis and thrombophlebitis of other sites (principal); S39.011A Strain of muscle, fascia and tendon of abdomen, initial encounter
CPT/HCPCS: 36415; 71260; 74177; 80053; 83690; 83735; 84484; 85025; 85379; 93005; 93971; 99283; 99284; 99285; Q9967

== ENCOUNTER 2024-04-05 10:05 | Outpatient (CLI) | payer MEDICARE, BC, SELFPAY ==
--- OUTSIDE RECORDS SUMMARY | 2024-04-05 10:07 | XMS_ITS | Clinical Summary ---
Author Organization [facility] Address [address] [place] [address] Care Team Providers Care Sign Maintenance Name Role Phone Elsewhere, Pcp Primary Care Provider Unavailabl e Source Comments Patient records contain information from all sites at [facility]. For routine questions regarding patient records, call [phone] during business hours, M-F 8:00 AM - 5:00 PM Central Time. Record requests for emergency care only can be directed to [phone] at any time.[facility] Allergies Active Allergy Reactions Criticality Noted Date Comments Adhesive Tape-Silicones Rash 03/31/2006 Amoxicillin Other (see comments) 05/04/2015 Insomnia. Azithromycin GI intolerance 03/31/2006 Digestive upset. Bacitracin Zinc-Polymyxin B Rash 03/31/2006 Bacitracin-Polymyxin B Other (see comments) Change in skin color. Cefuroxime Hives (Reselect Reaction) 10/09/2017 Other reaction(s): Hives / Skin Rash Latex Hives (Reselect Reaction) 12/01/2014 Possible latex allergy vs adhesive Polymyxin B Sulfate Hives (Reselect Reaction) 10/13/2009 Medications Medication Sig Dispensed Refills Start Date End Date Status cholecalciferol, vitamin D3, 3,000 unit tablet Take 1 tablet by mouth daily. 06/12/2017 Active cyanocobalamin (VITAMIN B12) 500 mcg tablet Take 1 tablet by mouth daily. 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 Migraine Headache 10/13/2009 Polyp Colon Personal History 11/25/2008 Rhinitis Allergic 04/02/2006 Acne Rosacea 03/31/2006 Encounters Date Type Department Care Team Description 03/05/2024 CPAP Download Remote Patient Monitoring [facility] [address] [place] [address] [facility], Provider 02/03/2024 CPAP Download Remote Patient Monitoring [facility] [address] [place] [address] [facility], Provider 01/27/2024 10:20 AM CDT - 01/27/2024 11:59 PM CDT Hospital Encounter Department of Laboratory Medicine and Pathology, [facility] in [place], [place] [address] [place] [phone] Maximus Callejas M.D. Deficiency Vitamin D Discharge Disposition: Home or Self Care 01/13/2024 2:30 PM CDT Office Visit [facility] in [place], [place] [address] [place] [phone] Mayur Holm M.D. Apnea Sleep Obstructive (Primary Dx) 01/13/2024 2:15 PM CDT Telemedicine [facility] in [place], [place] [address] [place] [phone] Amelia Jensen R.N. Obstructive Sleep Apnea Adult (Primary Dx) 01/13/2024 10:30 AM CDT Telemedicine Division of Nephrology and Hypertension in [place], [place] [address] [place] [phone] Maximus Callejas M.D. Cyst Renal; Nephrolithiasis 01/13/2024 Clinical Communication Division of Nephrology and Hypertension in [place], [place] [address] [place] [phone] Maximus Callejas M.D. Follow-up Orders (Future visit) 01/12/2024 12:09 PM CDT - 01/12/2024 11:59 PM CDT Hospital Encounter Department of Radiology, [facility], in [place], [place] [address] [place] [phone] Maximus Callejas M.D. Cyst Renal; Nephrolithiasis Discharge Disposition: Home or Self Care 01/12/2024 11:41 AM CDT - 01/12/2024 12:08 PM CDT Hospital Encounter Department of Laboratory Medicine and Pathology, [facility] in [place], [place] [address] [place] [phone] Maximus Callejas M.D. Cyst Renal; Nephrolithiasis; Hyperlipidemia Mixed Discharge Disposition: Home or Self Care 01/09/2024 2:00 PM CDT Clinical Communication Virtual Review in [place], [place] [address] [place] [address] Pre-visit Intake from Last 3 Months Immunizations Name Administration Dates Next Due HZV (ZOSTAVAX) 04/08/2013 HepB, Unspecified 11/13/2000,06/13/2000,05/12/20 00 Influenza (IM) Preservative Free 09/13/2016,08/14,07/10/2009 Influenza Split 07/14/2013,11/28/2006 PCV13 11/13/2016 PPSV23 05/30/2014 Td Preservative Free (TENIVA C, DECAVAC) 01/30/2015 Td, (Adult) Unspecified 07/12/2002 Tdap 09/30/2008 influenza high dose (65 year s or older) (PF) 08/12/2018,11/26/2017,08/10/2015,2013,09/07/2013,07/14/2013 Family History Medical History Relation Name Comments Arthritis Father Celso Brown Hypertension Father Celso Brown Transient ischemic attack Father Celso Parikhnbrian Tuberculosis Father's Brother Rubens Alcohol abuse Maternal Grandfather Alois Diabetes Maternal Grandfather Alois Osteoporosis Maternal Grandmother Flower Other cancer Mother Connie Brown Stomach c ancer Rectal cancer Paternal Grandfather Randall Brown Arthritis Paternal Grandmother Sailaja Breast cancer Sister Tommy Migraines Sister Tommy Relation Name Status Comments Father Celso Brown Father's Brother Rubens Maternal Grandfather Cristino Maternal Grandmother Flower Mother Connie Brown Paternal Grandfather Randall Brown Paternal Grandmother Sailaja Sister Tommy Social History Tobacco Use Types Packs/Day Years Used Date Smoking Tobacco: Never Passive Smoke Exposure: Never Smokeless Tobacco: Never Tobacco Cessation:Counseling Given: Not Answered Alcohol Use Standard Drinks/Week Comments No 0 (1 standard drink = 0.6 oz pur e alcohol) [facility] Utilities Answer Date Recorded In the past 12 months has e electric, gas, oil, or water company threatened to shut off services in your home? No 01/07/2024 Social Connection and Isolat ion Panel [NHANES] Answer Date Recorded In a typical week, how many times do you talk on the phone with family, friends, or neighbors? More than three times a week 07/14/2022 How often do you get togethe r with friends or relatives? Once a week 07/14/2022 How often do you attend chur ch or mormon services? Patient declined 07/14/2022 Do you belong to any clubs o r organizations such as methodist groups, unions, fraternal or athletic groups, or school groups? Yes 07/14/2022 How often do you attend meet ings of the clubs or organizations you belong to? Patient declined 07/14/2022 Are you , , di vorced, , never , or living with a partner? 07/14/2022 AUDIT-C Answer Date Recorded Q1: How often do you have a drink containing alc ohol? Never 06/05/2021 Average Number of Drinks Not on file 021 Frequency of Binge Drinking Not on file 05/14 Overall Financial Resource Strain (CARDIA) Answe r Date Recorded How hard is it for you to pa y for the very basics like food, housing, medical care, and heating? Not hard at all 06/05/2021 [facility] of Occupat ional Health - Occupational Stress Questionnaire Answer Date Recorded Do you feel stress - tense, restless, nervous, or anxious, or unable to sleep at night because your mind is troubled all the time - these days? Not at all 06/05/2021 Exercise Vital Sign Answer Date Recorde d On average, how many days pe r week do you engage in moderate to strenuous exercise (like a brisk walk)? 3 days 01/07/2024 On average, how many minutes do you engage in exercise at this level? 20 min 01/07/2024 Hunger Vital Sign Answer Date Recorded Within the past 12 months, y ou worried that your food would run out before you got the money to buy more. Never true 01/07/20 24 Within the past 12 months, t he food you bought just didn't last and you didn't have money to get more. Never true 01/07/2024 PRAPARE - Transportation Answer Date Re corded In the past 12 months, has l ack of transportation kept you from medical appointments or from getting medications? No 12/12 In the past 12 months, has l ack of transportation kept you from meetings, work, or from getting things needed for daily living? No 01/07/2024 Nutrition Answer Date Recorded Nutrition: EVOO Fat Source No 01/06 On average, how many serving s of fruits and vegetables do you eat per day (serving size is equal to 1 cup or approximately the size of a tennis ball)? 5 or more 01/07/2024 Dental Answer Date Recorded Dental: Regular Dentist Yes 10/22/19 Employment Answer Date Recorded Employment status Retired 01/07/2024 Housing Stability Answer Date Recorded What is your living situation today? I have a [facility] place to live 01/07/2024 Education Answer Date Recorded What is the highest level of school you have completed or the highest degree you have received? Master's degree (e.g., MA, MS, Mikaela, MEd, SUPERVISOR [employer], [employer]YR[employer]) 11/10/2019 Sex and Gender Information Value Date Recorded Sex Assigned at Female 07/14/2022 9:10 PM CDT Gender Identity Female 07/14/2022 9:10 PM CDT Sexual Orientation Straight 07/14/2022 9: 10 PM CDT Last Filed Vital Signs Vital Sign Reading Time Taken Comments Blood Pressure 146/74 09/09/2022 1:55 PM CHRONOMETER ASSEMBLER AND ADJUSTER 9/ 5 Pulse 80 11/10/2019 8:37 AM CHRONOMETER ASSEMBLER AND ADJUSTER Temperature 36.7 ??C (98.1 ??F) 08/12/2018 8:08 AM CD T Respiratory Rate - - Oxygen Saturation - - Inhaled Oxygen Concentration - - Weight 74.8 kg (165 lb) 09/09/2022 1:55 PM CHRONOMETER ASSEMBLER AND ADJUSTER Height 167.6 cm (5' 6) 06/11/2021 3:11 PM CDT Body Mass Index 26.63 06/11/2021 3:11 PM CDT Plan of Treatment Health Maintenance Due Date Last Done Comments CT Colonography 1948 Cologuard 1950 Hepatitis C Screening 1950 Colonoscopy 03/23/2019 03/23/2014 (Perf ormed elsewhere), 03/21/2009 (Performed elsewhere), 10/13/2008 (Performed elsewhere) Colorectal Cancer Surveillance 03/23/2019 Depression Screening (Annual PHQ-2) 10/13/2023 Fall Risk Screen (Annual) 10/13/2023 Mammogram 04/08/2024 04/08/2023, 03/14, 04/05/2022, Additional history exists Fasting Glucose for Diabetes Screening 01/11/2027 01/12/2024, 09/02/2022, 11/09/2019, Additional history exists DTaP,Tdap,and Td Vaccines (4 - Td or Tdap) 06/04/2031 06/04/2021, 01/30/2015, 09/30/2008, Additional history exists Hepatitis B Vaccines Completed 11/13/2000, 11/13/2000, 06/13/2000, Additional history exists Pneumococcal vaccine (65+ years) Completed 11/13/19 17, 05/30/2014 Zoster Vaccines Completed 12/06/2021, 09/12, 04/08/2013 Bone Density Scan (Osteoporo sis Screen) Discontinued 09/02/2022 Influenza Vaccine Completed 07/24/2023, , 07/23/2022, Additional history exists COVID-19 Vaccine Completed 12/25/2023, 01/2023, 02/06/2023, Additional history exists Medical Devices Implanted Type Area Beaming Machine Operator Device Identifier Shelf Expiration Date Model / Serial / Lot Mesh Marlex 6 X 6 - Mack [id number] Implanted:Qty: 1 on 03/31/2009 Mesh or Patch Other/Legacy - See Implant Description Description:Device Manufactu [employer] [facility] - Med[employer]. Device Status Text - [id number]. Ocular Lens-04/12/2018 Implanted:2017 (Quantity not on file) Ocular Lens Right: Eye Ocular Lens-04/21/2018 Implanted:2017 (Quantity not on file) Ocular Lens Left: Eye Procedures Procedure Name Priority Date/Time Associated Diagnosis Comments 25-HYDROXYVITAMIN D2 AND D3, S Routine 01/29/2024 9:45 AM CDT Deficiency Vitamin D US KIDNEYS BILATERAL WITH BLADDER RAD - Routine (most inpatients and all outpatients) 01/12/2024 1:46 PM CDT Cyst Renal Nephrolithiasis VITAMIN B12 ASSAY, S Routine 01/12/2024 11:59 AM CDT Cyst Renal Nephrolithiasis LIPID PANEL, S Routine 01/12/2024 11:59 AM CDT Cyst Renal Nephrolithiasis Hyperlipidemia Mixed BASIC METABOLIC PANEL, S/P Routine 01/12/2024 11:59 AM CDT Cyst Renal Nephrolithiasis CBC WITHOUT DIFFERENTIAL, B Routine 01/12/2024 11:59 AM CDT Cyst Renal Nephrolithiasis BI BREAST SCREENING BILATERAL Routine 04/08/2023 9:02 AM CDT from Last 3 Months or Most Recently Relevant to Health Maintenance Results * 25-Hydroxyvitamin D2 and D3 (01/29/2024 9:45 AM CDT) 25-Hydroxy D2 <4.0 ng/mL 02/04/2024 3:02 PM CDT [facility] 25-Hydroxy D3 46 ng/mL 02/04/2024 3:02 PM CDT [facility] 25-Hydroxy D Total 46 ng/mL 2023 3:02 PM CDT [facility] Comment: ----REFERENCE VALUE---- 25-HYDROXY D TOTAL (D2+D3) Optimum levels in the healthy population are 20-50. ----ADDITIONAL INFORMATION---- This test was developed and its performance characteristics determined by [facility] in a manner consistent with CLIA requirements. This test has not been cleared or approved by the U.S. Food and Drug Administration. Blood (Blood, Venous) 01/29/2024 9:45 AM CDT 02/02/2024 8:43 AM CDT Narrative Resulting Agency Comment Mailed In Specimen Maximus Callejas M.D. LAB BLOOD ADD-ON [facility] [address] [place] [address] [facility] [address] [place] [address] [place] [address] * US Kidneys Bilateral with Bladder (01/12/2024 1:46 PM CDT) Anatomical Region Laterality Modality Abdomen, Renal, Ultrasound R ST LOS, Ultrasound ARZ LOS, Ultrasound FLA LOS Bilateral Ultrasound Impressions 01/12/2024 2:30 PM CDT 1. Allowing for differences in technique, similar to slight decrease in size of the large simple appearing right renal cyst measuring up to 13.8 cm. 2. Allowing for differences in technique, similar to slight increase in the nonobstructing calculi burden in the right kidney. If clinically indicated, this could be better characterized with CT. Narrative 01/12/2024 2:30 PM CDT EXAM: US KIDNEYS BILATERAL WITH BLADDER COMPARISON: Renal ultrasound 09/02/2022. FINDINGS: Right kidney: 9.2 cm. Cortical thickness: Normal. Parenchymal echogenicity: Normal. Collecting system: No hydronephrosis. Similar appearance of the nonobstructing calculi measuring up to 13 mm previously 7 mm. Masses: Similar appearance of the large simple appearing cyst in the lower pole measuring up to 13.8 cm, previously 17.3 cm. No mural nodularity or internal septations identified. Additional simple appearing cyst in the upper pole measures approximately 4 cm. Left kidney: 10.6 cm. Cortical thickness: Normal. Parenchymal echogenicity: Normal. Collecting system: No hydronephrosis. Masses: Similar appearance of the renal cyst measuring up to 3.1 cm per Bladder: Normal. Procedure Note Mark Ward M.D. - 01/12/2024 EXAM: US KIDNEYS BILATERAL WITH BLADDER COMPARISON: Renal ultrasound 09/02/2022. FINDINGS: Right kidney: 9.2 cm. Cortical thickness: Normal. Parenchymal echogenicity: Normal. Collecting system: No hydronephrosis. Similar appearance of thenonobstructing calculi measuring up to 13 mm previously 7 mm. Masses: Similar appearance of the large simple appearing cyst in the lowerpole measuring up to 13.8 cm, previously 17.3 cm. No mural nodularity orinternal septations identified. Additional simple appearing cyst in theupper pole measures approximately 4 cm. Left kidney: 10.6 cm. Cortical thickness: Normal. Parenchymal echogenicity: Normal. Collecting system: No hydronephrosis. Masses: Similar appearance of the renal cyst measuring up to 3.1 cm per Bladder: Normal. IMPRESSION: 1. Allowing for differences in technique, similar to slight decrease insize of the large simple appearing right renal cyst measuring up to 13.8cm. 2. Allowing for differences in technique, similar to slight increase inthe nonobstructing calculi burden in the right kidney. If clinicallyindicated, this could be better characterized with CT. Maximus SAINI US PROCEDURE S * Lipid Panel (01/12/2024 11:59 AM CDT) Triglycerides 69 mg/dL 01/12/2024 1:22 PM CDT DTL Comment: ----REFERENCE VALUE---- Normal: <150 mg/dL Borderline High: 150-199 mg/dL High: 200-499 mg/dL Very High: > or =500 mg/dL Cholesterol, Total 158 mg/dL 2023 1:22 PM CDT DTL Comment: ----REFERENCE VALUE---- Desirable: < 200 mg/dL Borderline High: 200 - 239 mg/dL High: > or = 240 mg/dL Cholesterol, LDL, Calculated 79 mg/dL 01/12/2024 1:22 PM CDT DTL Comment: ----REFERENCE VALUE---- Desirable: <100 mg/dL Above Desirable: 100-129 mg/dL Borderline High: 130-159 mg/dL High: 160-189 mg/dL Very High: >=190 mg/dL ----ADDITIONAL INFORMATION---- LDL cholesterol calculated using the Ragland/NIH equation. Cholesterol, HDL, S 66 >=50 mg/dL 01/12/2024 1:22 PM CDT DTL Cholesterol, Non-HDL, Calculated 92 mg/dL 01/12/2024 1:22 PM CDT DTL Comment: ----REFERENCE VALUE---- Desirable: <130 mg/dL Above Desirable: 130-159 mg/dL Borderline High: 160-189 mg/dL High: 190-219 mg/dL Very High: > or =220 mg/dL Fasting (8 HR or more) Yes 01/12/2024 12:35 PM CDT DTL Blood (Blood, Venous) 01/12/2024 11:59 AM CDT 01/12/2024 12:35 PM CDT Maximus Callejas M.D. LAB BLOOD ADD-ON [facility] [place] [address] [place] [address], [facility] [place] [address] * (ABNORMAL) CBC without Differential (01/12/2024 11:59 AM CDT) Hemoglobin 15.1(H) 11.6 - 15.0 g/dL 01/12/2024 12:40 PM CDT DTL Hematocrit 45.0(H) 35.5 - 44.9 % 01/12/2024 12:40 PM CDT DTL Erythrocytes 5.18(H) 3.92 - 5.13 x10(12)/L 01/12/2024 12:40 PM CDT DTL MCV 86.9 78.2 - 97.9 fL 01/12/2024 12:40 PM CDT DTL RBC Distrib Width 13.0 12.2 - 16.1 % 01/12/2024 12:40 PM CDT DTL Platelet Count 277 157 - 371 x10(9)/L 01/12/2024 12:40 PM CDT DTL Leukocytes 5.8 3.4 - 9.6 x10(9)/L 01/12/2024 12:40 PM CDT DTL Blood (Blood, Venous) 01/12/2024 11:59 AM CDT 01/12/2024 12:26 PM CDT Maximus Callejas M.D. LAB BLOOD ADD-ON [facility] [address] [place] [address], [facility] [address] [place] [address] * Vitamin B12 Assay (01/12/2024 11:59 AM CDT) Pathologist [facility] Vitamin B12 Assay, S 592 180 - 914 ng/L 01/13/2024 7:16 AM CDT DTL Comment: ----ADDITIONAL INFORMATION---- In patients being evaluated for vitamin B12 deficiency who have intrinsic factor blocking antibodies (IFBA), false elevations of B12 may occur due to IFBA interference thus potentially obscuring a physiological deficiency of B12. If observed B12 concentrations are discordant with clinical presentation, measurement of methylmalonic acid (MMA) should be considered. Blood (Blood, Venous) 01/12/2024 11:59 AM CDT 01/12/2024 12:35 PM CDT Maximus Callejas M.D. LAB BLOOD ADD-ON [facility] [address] [place] [address], [facility] [address] [place] [address] * Basic Metabolic Panel (01/12/2024 11:59 AM CDT) Potassium, S 4.2 3.6 - 5.2 mmol/L 01/12/2024 1:22 PM CDT DTL Sodium, S 143 135 - 145 mmol/L 01/12/2024 1:22 PM CDT DTL Chloride, S 104 98 - 107 mmol/L 01/12/2024 1:22 PM CDT DTL Bicarbonate, S 27 22 - 29 mmol/L 01/12/2024 1:22 PM CDT DTL Anion Gap 12 7 - 15 01/12/2024 1:22 PM CDT DTL BUN (Blood Urea Nitrogen), S 13 6 - 21 mg/dL 01/12/2024 1:22 PM CDT DTL Creatinine 0.75 0.59 - 1.04 mg/dL 01/12/2024 1:22 PM CDT DTL Estimated GFR (eGFR) 83 >=60 mL/min/BSA 01/12/2024 1:22 PM CDT DTL Comment: Estimated GFR calculated using the 2020 CKD_EPI creatinine equation. Calcium, Total, S 9.3 8.8 - 10.2 mg/dL 01/12/2024 1:22 PM CDT DTL Glucose, S 96 70 - 140 mg/dL 01/12/2024 1:22 PM CDT DTL Blood (Blood, Venous) 01/12/2024 11:59 AM CDT 01/12/2024 12:35 PM CDT Maximus Callejas M.D. LAB BLOOD ADD-ON [facility] [address] [place] [address], [facility] [address] [place] [address] from Last 3 Months or Most Recently Relevant to Health Maintenance Advance Directives For more information, please contact: [phone] Documents on File Type Date Recorded Patient Telephone Operator Expl anation Advance Directives 03/31/2009 12:00 AM Leg acy document. See document viewer. Care Teams Sign Maintenance Relationship Specialty Start Date End Date Elsewhere, Pcp PCP - General Internal Medicine 09/04/22
--- OUTSIDE RECORDS SUMMARY | 2024-04-05 10:08 | XMS_ITS | Encounter Summary ---
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 Name Role Phone Elsewhere, Pcp Primary Care Provider Unavailabl e Encounter Details Date Type Department Care Team (Late st Contact Info) Description 10/02/2023 CPAP Download Remote Patient Monitoring [facility] [address] [place] [address] [facility], Provider Social History Tobacco Use Types Packs/Day Years Used Date Smoking Tobacco: Never Smokeless Tobacco: Never Alcohol Use Standard Drinks/Week Comments No 0 (1 standard drink = 0.6 oz pur e alcohol) [facility] Utilities Answer Date Recorded In the past [...] often do you attend chur ch or pentecostalism services? Patient declined 07/14/2022 Do you belong to any clubs o r organizations such as hinduism groups, unions, fraternal or athletic groups, or [...] and heating? Not hard at all 06/05/2021 [facility] of Occupat ional Health - Occupational Stress [...] your living situation today? I have a [facility] place to live 01/07/2024 Education Answer Date Recorded What is the highest level of school you have completed or the highest degree you have received? 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
--- OUTSIDE RECORDS SUMMARY | 2024-04-05 10:08 | XMS_ITS ---
Author Organization [facility] Address [address] [place] [address] Care Team Providers Care Cartridge Filler Name Role Phone Unavailable Unavailable Unavailable Surgery Details Not on file Complications Check Surgery Details section. Procedure Estimated Blood Loss Check Surgery Details section. Procedure Findings Check Surgery Details section. Procedure Specimens Taken Check Surgery Details section.
--- OUTSIDE RECORDS SUMMARY | 2024-04-05 10:08 | XMS_ITS | Encounter Summary ---
Author Organization [facility] Address [address] [place] [address] Care Team Providers Care Research & Insights Executive Name Role Phone Elsewhere, Pcp Primary Care Provider Unavailabl e Encounter Details Date Type Department Care Team (Late st Contact Info) Description 01/13/2024 2:30 PM CDT Office Visit [facility] in [place], [place] [address] [place] [address] Mayur Holm M.D. [address] [place] [address] Apnea Sleep Obstructive (Primary Dx) Social History Tobacco Use Types Packs/Day Years Used Date Smoking Tobacco: Never Passive Smoke Exposure: Never Smokeless Tobacco: Never Alcohol Use Standard Drinks/Week Comments No 0 (1 standard drink = 0.6 oz pur e alcohol) [facility] Utilities Answer Date Recorded In the past 12 months has [employer], gas, oil, or water company threatened [...] often do you attend chur ch or amish services? Patient declined 07/14/2022 Do you belong to any clubs o r organizations such as hindu groups, unions, fraternal or athletic groups, or [...] and heating? Not hard at all 06/05/2021 [facility] - Occupational Stress Questionnaire Answer Date Recorded [...] your living situation today? I have a [facility] place to live 01/07/2024 Education Answer Date Recorded What is the highest level of school you have completed or the highest degree you have received? Master's degree (e.g., MA, MS, Mikaela, MEd, SCANNING MANAGER, [employer]YRUS) 11/10/2019 Sex and Gender Information Value Date Recorded Sex Assigned at Female 07/14/2022 9:10 PM CDT Gender Identity Female 07/14/2022 9:10 PM CDT Sexual Orientation Straight 07/14/2022 9: 10 PM CDT documented as of this encounter Progress Notes * Mayur Holm M.D. - 01/13/2024 2:30 PM CDT This is a supervisory note from my colleague Amelia Sorenson RN. I met with Ms. Brown [id number] via our video teleconference software. Review of her download from 12/08/2023 through 01/06/2024 demonstrates 30/30 days of usage more than 4 hours per night with a average usage of 6 hours 5 minutes. Residual AHI is appropriately suppressed at 1 per hour. Leak is acceptable. She has noted resolution of morning headaches with treatment of her sleep apnea. There has been some concern about an elevated hemoglobin of 15.1 and the potential for undertreated sleep apnea contributing to this, however, this is very unlikely given a low residual AHI an absence of symptoms referable to sleep apnea which continued to be absent since treatment of her sleep apnea. She has medical necessity to continue treatment with CPAP and is getting benefit from its use. We reviewed the importance of continued CPAP use on a nightly basis. We will continue on her current settings. I personally spent 10 minutes in care of the patient today. Time includes both non face to face andface to face patient care. documented in this encounter Plan of Treatment Not on file documented as of this encounter Visit Diagnoses Diagnosis Apnea Sleep Obstructive- Primary documented in this encounter Care Teams Research & Insights Executive Relationship Specialty Start Date End Date Elsewhere, Pcp PCP - General Internal Medicine 09/04/22 documented as of this encounter
--- OUTSIDE RECORDS SUMMARY | 2024-04-05 10:08 | XMS_ITS | Encounter Summary ---
Author Organization [facility] Address [address] [place] [address] Care Team Providers Care Leadership Development Instructor Name Role Phone Elsewhere, Pcp Primary Care Provider Unavailabl e Encounter Details Date Type Department Care Team (Late st Contact Info) Description 02/03/2024 CPAP Download Remote Patient Monitoring [facility] [address] [place] [address] [facility], Provider Social History Tobacco Use Types Packs/Day Years Used Date Smoking Tobacco: Never Passive Smoke Exposure: Never Smokeless Tobacco: Never Alcohol Use Standard Drinks/Week Comments No 0 (1 standard drink = 0.6 oz pur e alcohol) [facility] Utilities Answer Date Recorded In the past 12 months has [employer], gas, oil, or water company threatened to [...] often do you attend chur ch or holiness services? Patient declined 07/14/2022 Do you belong to any clubs o r organizations such as spiritism groups, unions, fraternal or athletic groups, or [...] and heating? Not hard at all 06/05/2021 [facility] of Occupat ional Health - Occupational Stress [...] money to buy more. Never true 01/07/20 Within the past 12 months, t he [...] your living situation today? I have a [facility] place to live 01/07/2024 Education Answer Date Recorded What is the highest level of school you have completed or the highest degree you have received? Master's degree (e.g., MA, MS, Mikaela, MEd, UTILITY TRACTOR OPERATOR, CYRUS) 11/10/2019 Sex and Gender Information Value Date Recorded Sex Assigned at Female 07/14/2022 9:10 PM CDT Gender Identity Female 07/14/2022 9:10 PM CDT Sexual Orientation Straight 07/14/2022 9: 10 PM CDT documented as of this encounter Plan of Treatment Not on file documented as of this encounter Visit Diagnoses Not on filedocumented in this encounter Care Teams Leadership Development Instructor Relationship Specialty Start Date End Date Elsewhere, Pcp PCP - General Internal Medicine 09/04/22 documented as of this encounter
--- OUTSIDE RECORDS SUMMARY | 2024-04-05 10:08 | XMS_ITS | Encounter Summary ---
Author Organization [facility] Address [address] [place] [address] Care Team Providers Care Out Of School Hours Care Worker Name Role Phone Elsewhere, Pcp Primary Care Provider Unavailabl e Reason for Referral * Outpatient (Routine) - Authorized Specialty Diagnoses / Procedures Referred By Damionac t Referred To Contact Sleep Medicine Juwan Blackwood M.D. [address] [place] [address] [facility] Referral ID Status Reason Start Date Expiration Date V isits Requested Visits Authorized [id number] Authorized 01/13/2024 07/14/2025 1 1 Reason for Visit * Reason Comments Cpap Follow-up * Appointment Request (Routine) - Closed Specialty Diagnoses / Procedures Referred By Controny t Referred To Contact Sleep Medicine Referral ID Status Reason Start Date Expiration Date Visits Re quested Visits Authorized [id number] Closed 12/16/2023 12/15/2024 1 1 Encounter Details Date Type Department Care Team ([facility] st Contact Info) Description 01/13/2024 2:15 PM CDT Telemedicine [facility] in [place], [place] [address] [place] [phone] Amelia Jensen, R.N. Obstructive Sleep Apnea Adult (Primary Dx) Social History Tobacco Use Types Packs/Day Years Used Date Smoking Tobacco: Never Passive Smoke Exposure: Never Smokeless Tobacco: Never Alcohol Use Standard Drinks/Week Comments No 0 (1 standard drink = 0.6 oz pur e alcohol) [facility] Utilities Answer Date Recorded In the past 12 months has th e electric, gas, oil, or water company [...] often do you attend chur ch or methodist services? Patient declined 07/14/2022 Do you belong to any clubs o r organizations such as muslim groups, unions, fraternal or athletic groups, or [...] and heating? Not hard at all 06/05/2021 [facility] of Occupat ional Health - Occupational Stress [...] your living situation today? I have a [facility] place to live 01/07/2024 Education Answer Date Recorded What is the highest level of school you have completed or the highest degree you have received? Master's degree (e.g., MA, MS, Mikaela, MEd, FILBERT GROWER, CYRUS) 11/10/2019 Sex and Gender Information Value Date Recorded Sex Assigned at Female 07/14/2022 9:10 PM CDT Gender Identity Female 07/14/2022 9:10 PM CDT Sexual Orientation Straight 07/14/2022 9: 10 PM CDT documented as of this encounter Progress Notes * Amelia Jensen R.N. - 01/13/2024 2:15 PM CDT Images from the original note were not included. Consult conducted via real-time audio/video technology by Amelia Jensen R.N. in [facility] to the patient in Patient's Home REASON FOR VISIT Eduar Brown presents for annual assessment of PAP therapy. Home Sleep Apnea Test was completed on 07/05/21 and showed an AHI of 29.5 with an RDI of 35.4. At time of testing, the ESS was not taken. Eduar Brown weight at the time of testing was not taken kg. Her weight today was not taken as this was a video visit. SUBJECTIVE Eduar Brown currently does report subjective benefit from the use of PAP therapy. Eduar Brown does understand the potential health benefits of PAP therapy. Improvements related to PAP usage: headache reduction, no more snoring, and cardiac benefits. Current concerns/challenges about treatment: No complaints or concerns at this time. Denies the following with PAP: excessive pressure and dry mouth. Snoring: No Snort Arousals: No Morning Headaches: No Viper Score: 0 (01/07/24211 : Amelia Jensen, R.N.) PROMIS Adult Short Form-Global Health Score (Mental): 14 (01/07/24210 : Amelia Jensen, R.N.) PROMIS Adult Short Form-Global Health Score (Physical): 15 (01/07/24210 : Amelia Jensen, R.N.) OBJECTIVE Patient Active Problem List Diagnosis Melanoma Ear (HCC) Acne Rosacea Apnea Sleep Obstructive Benign Neoplasm Colon Gastroesophageal Reflux Disease NOS Rhinitis Allergic Migraine Headache Polyp Colon Personal History Cyst Renal The download showed that the device was set as prescribed. PAP therapy prescribed at: 5-15 cmH2O. The interface is a nasal pillow. Heated humidity is set at unknown, and heated hose has been set atunknown. Vendor: [facility] in the [facility] (the patient could not specify where) VITAL SIGNS: ASSESSMENT / PLAN This return visit was reviewed in detail with Leon Holm M.D. who saw the patient face to face Updated plan of care and treatment recommendations provided as a result of today's visit include: 1. Continue PAP therapy at 5-15 cm H2O. Prescription was renewed by Leon Holm M.D. The patient's prescription was written for a new machine as hers is seven years old. 2. I congratulated the patient on excellent use of PAP therapy. Her apnea is well controlled on PAP. 3. The patient noted that she saw Dr. Callejas in nephrology at [facility] today. He stated her labs showed her hemoglobin and hematocrit are mildly elevated and wondered if that was the result of inadequate treatment with PAP. Dr. Mayur Holm reviewed the results and explained to the patient that her apnea is well controlled and should not be contributing to her elevated labs. I will communicate that information to Dr. Callejas per patient request. 4. The patient understands that there is an association with weight and sleep apnea. She hopes to lose weight and will contact us to see if our physicians feel re-testing is appropriate at that time. 5. Eduar Brown will continue to utilize the [employer] P10 interface for her. 6. USP management of the sleep treatment plan was reviewed with instruction on the focus thatthis is a chronic medical condition that requires ongoing assessment. Follow-up recommendation is for one year or sooner if needed. Eduar Brown should bring their PAP equipment to any appointments scheduled here. 7. Healthy lifestyle: Deferred Comprehensive education was provided regarding Positive Airway Pressure Therapy (PAP). Common problems encountered when utilizing PAP were reviewed in detail including vasomotor rhinitis, dry mouth, and congestion. Instruction regarding how to change the heated humidity and heated hose was provided. Proper care of PAP equipment and intervals for replacing supplies was provided. Reinforcement of the importance of properly cleaning the humidifier and empty the water daily was provided. The impactof weight loss in relationship to sleep disordered breathing was reviewed and weight loss encouraged. Discussion of the health risks of untreated obstructive sleep apnea was reviewed. Encouragement and reinforcement to wear PAP for the duration of sleep was provided. I reinforced importance in obtaining adequate total sleep time of 7-8 hours daily. The patient verbalized understanding of diagnosis and sleep treatment plan and was able to teach back concepts reviewed today. * Amelia Jensen R.N. - 01/13/2024 2:15 PM CDT Eduar Brown continues to have a medical condition for which PAP is medically indicated. The replacement of accessories is medically necessary and essential to use PAP effectively. documented in this encounter Plan of Treatment Scheduled Referrals Name Type Priority Associated Diagnoses Orde r Schedule Sleep Medicine nurse visit (clinic) Outpatient Referral Routine Expected: 01/12/2025, Expires: 04/13/2025 documented as of this encounter Visit Diagnoses Diagnosis Obstructive Sleep Apnea Adult- Primary documented in this encounter Care Teams Out Of School Hours Care Worker Relationship Specialty Start Date End Date Elsewhere, Pcp PCP - General Internal Medicine 09/04/22 documented as of this encounter
--- OUTSIDE RECORDS SUMMARY | 2024-04-05 10:08 | XMS_ITS | Encounter Summary ---
Author Organization [facility] Address [address] [place] [address] Care Team Providers Care Graduate Internship Name Role Phone Elsewhere, Pcp Primary Care Provider Unavailabl e Encounter Details Date Type Department Care Team (Latest Contact Info) Description 01/27/2024 10:20 AM CDT - 01/27/2024 11:59 PM CDT Hospital Encounter Department of Laboratory Medicine and Pathology, [facility], in [place], [place] [address] [place] [address] Maximus Callejas M.D. Deficiency Vitamin D Discharge Disposition: Home or Self Care Social History Tobacco Use Types Packs/Day Years Used Date Smoking Tobacco: Never Passive Smoke Exposure: Never Smokeless Tobacco: Never Alcohol Use Standard Drinks/Week Comments No 0 (1 standard drink = 0.6 oz pur e alcohol) [facility] Utilities Answer Date Recorded In the past 12 months has [employer] electric, gas, oil, or water company threatened [...] week 07/14/2022 How often do you attend [facility] or adventism services? Patient declined 07/14/2022 Do you belong to any clubs o r organizations such as cheondoism groups, unions, fraternal or athletic groups, or [...] and heating? Not hard at all 06/05/2021 [facility] of Occupat ional Health - Occupational Stress [...] your living situation today? I have a [facility] place to live 01/07/2024 Education Answer Date Recorded What is the highest level of school you have completed or the highest degree you have received? Master's degree (e.g., MA, MS, Mikaela, MEd, DIRECTOR EAST COAST SALES, CYRUS) 11/10/2019 Sex and Gender Information Value Date Recorded Sex Assigned at Female 07/14/2022 9:10 PM CDT Gender Identity Female 07/14/2022 9:10 PM CDT Sexual Orientation Straight 07/14/2022 9: 10 PM CDT documented as of this encounter Medications at Time of Discharge Medication Sig Dispensed Refills Start Date End Date cholecalciferol, vitamin D3, 3,000 unit tablet Take 1 tablet by mouth daily. 06/12/2017 cyanocobalamin (VITAMIN B12) 500 mcg tablet Take 1 tablet by mouth daily. 05/04/2015 DME CPAP Diagnosis: Obstructive Sleep Apnea Pressure Setting: DME CPAPIndications:Obstruc tive Sleep Apnea Adult DME Order 1 each 01/13/2024 UNABLE TO FIND vit C/E/Zn/coppr/lutein/zeax an (PRESERVISION AREDS-2 ORAL) documented as of this encounter Plan of Treatment Not on file documented as of this encounter Procedures Procedure Name Priority Date/Time Associated Diagnosis Comments 25-HYDROXYVITAMIN D2 AND D3, S Routine 01/29/2024 9:45 AM CDT Deficiency Vitamin D documented in this encounter Results * 25-Hydroxyvitamin D2 and D3 (01/29/2024 [...] developed and its performance characteristics determined by [facility] in a manner consistent with CLIA requirements. This test has not been cleared or approved by the U.S. Food and Drug Administration. Blood (Blood, Venous) 01/29/2024 9:45 AM CDT 02/02/2024 8:43 AM CDT Narrative Resulting Agency Comment Mailed In Specimen Maximus Callejas M.D. LAB BLOOD ADD-ON [facility] [address] [place] [address] [facility] [address] [place] [address] [place] [address] documented in this encounter Visit Diagnoses Diagnosis Deficiency Vitamin D documented in this encounter Care Teams Graduate Internship Relationship Specialty Start Date End Date Elsewhere, Pcp PCP - General Internal Medicine 09/04/22 documented as of this encounter
--- OUTSIDE RECORDS SUMMARY | 2024-04-05 10:08 | XMS_ITS | Encounter Summary ---
Author Organization [facility] Address [address] [place] [address] Care Team Providers Care Plumbing And Heating Contractor Name Role Phone Elsewhere, Pcp Primary Care Provider Unavailabl e Encounter Details Date Type Department Care Team (Late st Contact Info) Description 12/29/2023 Clinical Communication [facility] in [place], [place] [address] [place] [phone] Ab Lo, RAHEEM, C.N.P., M.S.N. [address] [place] [phone] Social History Tobacco Use Types Packs/Day Years Used Date Smoking Tobacco: Never Smokeless Tobacco: Never Alcohol Use Standard Drinks/Week Comments No 0 (1 standard drink = 0.6 oz pur e alcohol) Social Connection and Isolat ion Panel [NHANES] Answer Date Recorded In a typical week, how many times do you talk on the phone with family, friends, or neighbors? More than three times a week 07/14/2022 How often do you get togethe r with friends or relatives? Once a week 07/14/2022 How often do you attend chur or lutheran services? Patient declined 07/14/2022 Do you belong to any clubs o r organizations such as congregational groups, unions, fraternal or athletic groups, or [...] and heating? Not hard at all 06/05/2021 [facility] of Occupat ional Health - Occupational Stress [...] to strenuous exercise (like a brisk walk)? 2 days 07/14/2022 On average, how many minutes do you engage in exercise at this level? 20 min 07/14/2022 Hunger Vital Sign Answer Date Recorded Within the past 12 months, y ou worried that your food would run out before you got the money to buy more. Never true 06/05/20 21 Within the past 12 months, t he food you bought just didn't last and you didn't have money to get more. Never true 06/05/2021 [facility] - Transportation Answer Date Re corded In the past 12 months, has l ack of transportation kept you from medical appointments or from getting medications? No 11/2021 In the past 12 months, has l ack of transportation kept you from meetings, work, or from getting things needed for daily living? No 07/14/2022 Housing Stability Vital Sign Answer Alfa e Recorded In the last 12 months, was t here a time when you were not able to pay the mortgage or rent on time? No 07/14/2022 In the last 12 months, how many places have you lived? 1 07/14/2022 In the last 12 months, was t here a time when you did not have a steady place to sleep or slept in a longterm (including now)? No 07/14/2022 Nutrition Answer Date Recorded Nutrition: EVOO Fat Source No 07/14 On average, how many serving s of fruits and vegetables do you eat per day (serving size is equal to 1 cup or approximately the size of a tennis ball)? 8 or more 07/14/2022 Dental Answer Date Recorded Dental: Regular Dentist Yes 10/22/19 Employment Answer Date Recorded Employment status Retired 07/14/2022 Education Answer Date Recorded What is the highest level of school you have completed or the highest degree you have received? Master's degree (e.g., MA, MS, Mikaela, MEd, SNUFF BOX FINISHER, CYRUS) 11/10/2019 Sex and Gender Information Value Date Recorded Sex Assigned at Female 07/14/2022 9:10 PM CDT Gender Identity Female 07/14/2022 9:10 PM CDT Sexual Orientation Straight 07/14/2022 9: 10 PM CDT documented as of this encounter Plan of Treatment Not on file documented as of this encounter Visit Diagnoses Not on filedocumented in this encounter Care Teams Plumbing And Heating Contractor Relationship Specialty Start Date End Date Elsewhere, Pcp PCP - General Internal Medicine 09/04/22 documented as of this encounter
--- OUTSIDE RECORDS SUMMARY | 2024-04-05 10:08 | XMS_ITS | Encounter Summary ---
Author Organization [facility] Address [address] [place] [id number] Care Team Providers Care Bin Operator Name Role Phone Elsewhere, Pcp Primary Care Provider Unavailabl e Reason for Visit * Outpatient (Routine) - Closed Specialty Diagnoses / Procedures Referred By Rosa t Referred To Contact Nephrology and Hypertension Diagnoses Cyst Renal Nephrolithiasis Maximus Callejas M.D. [address] [place] [address] [facility] Referral ID Status Reason Start Date Expiration Date Visits Re quested Visits Authorized [id number] Closed 09/11/2022 09/10/2025 1 1 Encounter Details Date Type Department Care Team (Late st Contact Info) Description 01/13/2024 10:30 AM CDT Telemedicine Division of Nephrology and Hypertension in [place], [place] [address] [place] [phone] Maximus Callejas M.D. Cyst Renal; Nephrolithiasis Social History Tobacco Use Types Packs/Day Years [...] often do you attend chur ch or alevism services? Patient declined 07/14/2022 Do you belong [...] and heating? Not hard at all 06/05/2021 [facility] of Occupat ional Health - Occupational Stress [...] your living situation today? I have a [facility] place to live 01/07/2024 Education Answer Date Recorded What is the highest level of school you have completed or the highest degree you have received? Master's degree (e.g., MA, MS, Mikaela, MEd, SEPARATOR OPERATOR [employer]LL[employer], CYRUS) 11/10/2019 Sex and Gender Information Value Date Recorded Sex Assigned at Female 07/14/2022 9:10 PM CDT Gender Identity Female 07/14/2022 9:10 PM CDT Sexual Orientation Straight 07/14/2022 9: 10 PM CDT documented as of this encounter Progress Notes * Maximus Callejas M.D. - 01/13/2024 10:30 AM CDT SUBJECTIVE REASON FOR VISIT Multiple renal cysts HISTORY OF PRESENT ILLNESS Ms. Brown is a 73 y.o. female I last saw one year ago. She is regaining the weight she lost during COVID. She has many questions about vaccination that I answered to the best of my ability. However in general, it sounds like she is doing well and her cysts are essentially asymptomatic. Blood pressure is generally in the 120 -130 s systolic with occasionally higher readings. She will be visiting with one of my sleep disorders colleagues tomorrow about her CPAP. She says that she uses it nightly. Her mildly elevated hemoglobin raises the question as to whether it is adequate in its current form. The following portions of the patient's history were reviewed and updated as appropriate: allergies, current medications, family history, medical history, social history, surgical history and problemlist. Current Outpatient Medications: cholecalciferol, vitamin D3, 3,000 unit tablet, Take 1 tablet by mouth daily. , Disp: , Rfl: cyanocobalamin (VITAMIN B12) 500 mcg tablet, Take 1 tablet by mouth daily., Disp: , Rfl: DME CPAP, Diagnosis: Obstructive Sleep Apnea Pressure Setting:, Disp: , Rfl: UNABLE TO FIND, vit C/E/Zn/coppr/lutein/zeaxan (PRESERVISION AREDS-2 ORAL), Disp: , Rfl: Review of Systems REVIEW OF SYSTEMS OBJECTIVE There were no vitals taken for this visit. PHYSICAL EXAMINATION General: Alert, oriented cooperative. Hospital Outpatient Visit on 01/12/2024 Component Date Value Ref Range Status Hemoglobin 01/12/2024 15.1 (H) 11.6 - 15.0 g/dL Final Hematocrit 01/12/2024 45.0 (H) 35.5 - 44.9 % Final Erythrocytes 01/12/2024 5.18 (H) 3.92 - 5.13 x10(12)/L Final MCV 01/12/2024 86.9 78.2 - 97.9 fL Final RBC Distrib Width 01/12/2024 13.0 12.2 - 16.1 % Final Platelet Count 01/12/2024 277 157 - 371 x10(9)/L Final Leukocytes 01/12/2024 5.8 3.4 - 9.6 x10(9)/L Final Potassium, S 01/12/2024 4.2 3.6 - 5.2 mmol/L Final Sodium, S 01/12/2024 143 135 - 145 mmol/L Final Chloride, S 01/12/2024 104 98 - 107 mmol/L Final Bicarbonate, S 01/12/2024 27 22 - 29 mmol/L Final Anion Gap 01/12/2024 12 7 - 15 Final BUN (Blood Urea Nitrogen), S 01/12/2024 13 6 - 21 mg/dL Final Creatinine 01/12/2024 0.75 0.59 - 1.04 mg/dL Final Estimated GFR (eGFR) 01/12/2024 83 >=60 mL/min/BSA Final Comment: Estimated GFR calculated using the 2020 CKD_EPI creatinine equation. Calcium, Total, S 01/12/2024 9.3 8.8 - 10.2 mg/dL Final Glucose, S 01/12/2024 96 70 - 140 mg/dL Final Triglycerides 01/12/2024 69 mg/dL Final Comment: ----REFERENCE VALUE---- Normal: <150 mg/dL Borderline High: 150-199 mg/dL High: 200-499 mg/dL Very High: > or =500 mg/dL Cholesterol, Total 01/12/2024 158 mg/dL Final Comment: ----REFERENCE VALUE---- Desirable: < 200 mg/dL Borderline High: 200 - 239 mg/dL High: > or = 240 mg/dL Cholesterol, LDL, Calculated 01/12/2024 79 mg/dL Final Comment: ----REFERENCE VALUE---- Desirable: <100 mg/dL Above Desirable: 100-129 mg/dL Borderline High: 130-159 mg/dL High: 160-189 mg/dL Very High: >=190 mg/dL ----ADDITIONAL INFORMATION---- LDL cholesterol calculated using the Ragland/NIH equation. Cholesterol, HDL, S 01/12/2024 66 >=50 mg/dL Final Cholesterol, Non-HDL, Calculated 01/12/2024 92 mg/dL Final Comment: ----REFERENCE VALUE---- Desirable: <130 mg/dL Above Desirable: 130-159 mg/dL Borderline High: 160-189 mg/dL High: 190-219 mg/dL Very High: > or =220 mg/dL Fasting (8 HR or more) 01/12/2024 Yes Final Vitamin B12 Assay, S 01/12/2024 592 180 - 914 ng/L Final Comment: ----ADDITIONAL INFORMATION---- In patients being evaluated for vitamin B12 deficiency who have intrinsic factor blocking antibodies (IFBA), false elevations of B12 may occur due to IFBA interference thus potentially obscuring a physiological deficiency of B12. If observed B12 concentrations are discordant with clinical presentation, measurement of methylmalonic acid (MMA) should be considered. Current Outpatient Medications: cholecalciferol, vitamin D3, 3,000 unit tablet, Take 1 tablet by mouth daily. , Disp: , Rfl: cyanocobalamin (VITAMIN B12) 500 mcg tablet, Take 1 tablet by mouth daily., Disp: , Rfl: DME CPAP, Diagnosis: Obstructive Sleep Apnea Pressure Setting:, Disp: , Rfl: UNABLE TO FIND, vit C/E/Zn/coppr/lutein/zeaxan (PRESERVISION AREDS-2 ORAL), Disp: , Rfl: DIAGNOSTICS Hemoglobin is mildly elevated but stable at 15.1, normocytic, normochromic. Lipids look fine on no medication whatsoever. Blood chemistry panel is normal including serum creatinine. ASSESSMENT / PLAN #1 Multiple bilateral renal cysts, largest 16 cm on the right, benign #2 Nephrolithiasis, metabolically and surgically inactive #3 Obstructive sleep apnea on CPAP with erythrocytosis, consultation pending We looked at her ultrasound kidney images. I answered multiple questions about vaccination to the best of my ability. I think the best thing Ms. Brown can do at this point is to work on weight reduction. Her back problems are under the care of a chiropractor. I directed her questions about back bracing to that provider. I will pass her kidney care on to one of my colleagues with an interest inrenal cystic disease. She would like to continue her affiliation with [employer], but remotely. Maximus Callejas M.D. Total time 55 minutes, moderate complexity documented in this encounter Plan of Treatment Not on file documented as of this encounter Visit Diagnoses Diagnosis Cyst Renal Nephrolithiasis documented in this encounter Care Teams Bin Operator Relationship Specialty Start Date End Date Elsewhere, Pcp PCP - General Internal Medicine 09/04/22 documented as of this encounter
--- OUTSIDE RECORDS SUMMARY | 2024-04-05 10:08 | XMS_ITS | Encounter Summary ---
Author Organization [facility] Address [address] [place] [address] Care Team Providers Care Counseling Center Director Name Role Phone Elsewhere, Pcp Primary Care Provider Unavailabl e Encounter Details Date Type Department Care Team (Late st Contact Info) Description 01/03/2024 CPAP Download Remote Patient Monitoring [facility] [address] [place] [address] [facility], Provider Social History Tobacco Use Types Packs/Day Years Used Date Smoking Tobacco: Never Smokeless Tobacco: Never Alcohol Use Standard Drinks/Week Comments No 0 (1 standard drink = 0.6 oz pur e alcohol) [facility] Utilities Answer Date Recorded In the past [...] often do you attend chur ch or scientology services? Patient declined 07/14/2022 Do you belong to any clubs o r organizations such as gnosticist groups, unions, fraternal or athletic groups, or [...] heating? Not hard at all 06/05/2021 [facility] of Occupat ional Health - Occupational Stress [...] your living situation today? I have a [facility] place to live 01/07/2024 Education Answer Date Recorded What is the highest level of school you have completed or the highest degree you have received? Master's degree (e.g., MA, MS, Mikaela, MEd, DIRECTOR MACHINE, CYRUS) 11/10/2019 Sex and Gender Information Value Date Recorded Sex Assigned at Female 07/14/2022 9:10 PM CDT Gender Identity Female 07/14/2022 9:10 PM CDT Sexual Orientation Straight 07/14/2022 9: 10 PM CDT documented as of this encounter Plan of Treatment Not on file documented as of this encounter Visit Diagnoses Not on filedocumented in this encounter Care Teams Counseling Center Director Relationship Specialty Start Date End Date Elsewhere, Pcp PCP - General Internal Medicine 09/04/22 documented as of this encounter
--- OUTSIDE RECORDS SUMMARY | 2024-04-05 10:08 | XMS_ITS | Encounter Summary ---
Author Organization [facility] Address [address] [place] [address] Care Team Providers Care Sales Contracts Analyst Name Role Phone Elsewhere, Pcp Primary Care Provider Unavailabl e Reason for Visit * Reason Onset Date Comments Pre-visit Intake 01/09/2024 Encounter Details Date Type Department Care Team (Latest Contact Info) Description 01/09/2024 2:00 PM CDT Clinical Communication Virtual Review in [place], [place] [address] [place] [address] Pre-visit Intake Social History Tobacco Use Types Packs/Day Years Used Date Smoking Tobacco: Never Passive Smoke Exposure: Never Smokeless Tobacco: Never Tobacco Cessation:Counseling Given: Not Answered Alcohol Use Standard Drinks/Week Comments No 0 (1 standard drink = 0.6 oz pur e alcohol) [facility] Utilities Answer Date Recorded In the past 12 months has [employer], gas, oil, or water [employer] threatened to shut off services in your [...] How often do you attend chur or restorationism services? Patient declined 07/14/2022 Do you belong [...] and heating? Not hard at all 06/05/2021 [facility] [place] of Occupat ional Health - Occupational Stress [...] Master's degree (e.g., MA, MS, Mikaela, MEd, LATIN PROFESSOR, CYRUS) 11/10/2019 Sex and Gender Information Value Date Recorded Sex Assigned at Female 07/14/2022 9:10 PM CDT Gender Identity Female 07/14/2022 9:10 PM CDT Sexual Orientation Straight 07/14/2022 9: 10 PM CDT documented as of this encounter Plan of Treatment Not on file documented as of this encounter Visit Diagnoses Not on filedocumented in this encounter Care Teams Sales Contracts Analyst Relationship Specialty Start Date End Date Elsewhere, Pcp PCP - General Internal Medicine 09/04/22 documented as of this encounter
--- OUTSIDE RECORDS SUMMARY | 2024-04-05 10:08 | XMS_ITS | Encounter Summary ---
Author Organization [facility] Address [address] [place] [address] Care Team Providers Care Machine Oiler Name Role Phone Elsewhere, Pcp Primary Care Provider Unavailabl e Encounter Details Date Type Department Care Team (Late st Contact Info) Description 12/03/2023 CPAP Download Remote Patient Monitoring [facility] [address] [place] [address] [facility], Provider Social History Tobacco Use Types [...] often do you attend chur ch or temple services? Patient declined 07/14/2022 Do you belong to any clubs o r organizations such as pentecostal groups, unions, fraternal or athletic groups, or [...] Not hard at all 06/05/2021 [facility] - Occupational Stress Questionnaire Answer [...] place to sleep or slept in a retirement (including now)? No 07/14/2022 Nutrition Answer Date [...] Master's degree (e.g., MA, MS, Mikaela, MEd, DIE ASSEMBLER, CYRUS) 11/10/2019 Sex and Gender Information Value Date Recorded Sex Assigned at Female 07/14/2022 9:10 PM CDT Gender Identity Female 07/14/2022 9:10 PM CDT Sexual Orientation Straight 07/14/2022 9: 10 PM CDT documented as of this encounter Plan of Treatment Not on file documented as of this encounter Visit Diagnoses Not on filedocumented in this encounter Care Teams Machine Oiler Relationship Specialty Start Date End Date Elsewhere, Pcp PCP - General Internal Medicine 09/04/22 documented as of this encounter
--- OUTSIDE RECORDS SUMMARY | 2024-04-05 10:08 | XMS_ITS | Encounter Summary ---
Author Organization [facility] Address [address] [place] [address] Care Team Providers Care Business Education Teacher Name Role Phone Elsewhere, Pcp Primary Care Provider Unavailabl e Encounter Details Date Type Department Care Team (Late st Contact Info) Description 03/05/2024 CPAP Download Remote Patient Monitoring [facility] [address] [place] [address] [facility], Provider Social History Tobacco Use Types Packs/Day Years Used Date Smoking Tobacco: Never Passive Smoke Exposure: Never Smokeless Tobacco: Never Alcohol Use Standard Drinks/Week Comments No 0 (1 standard drink = 0.6 oz pur e alcohol) [facility] Utilities Answer Date Recorded In the past 12 months has [employer], gas, oil, or water company threatened to [...] often do you attend chur ch or confucianist services? Patient declined 07/14/2022 Do you belong to any clubs o r organizations such as mormon groups, unions, fraternal or athletic groups, or [...] and heating? Not hard at all 06/05/2021 [facility] [place] of Occupat ional Health - Occupational Stress [...] Master's degree (e.g., MA, MS, Mikaela, MEd, KITCHEN RUNNER, CYRUS) 11/10/2019 Sex and Gender Information Value Date Recorded Sex Assigned at Female 07/14/2022 9:10 PM CDT Gender Identity Female 07/14/2022 9:10 PM CDT Sexual Orientation Straight 07/14/2022 9: 10 PM CDT documented as of this encounter Plan of Treatment Not on file documented as of this encounter Visit Diagnoses Not on filedocumented in this encounter Care Teams Business Education Teacher Relationship Specialty Start Date End Date Elsewhere, Pcp PCP - General Internal Medicine 09/04/22 documented as of this encounter
--- OUTSIDE RECORDS SUMMARY | 2024-04-05 10:08 | XMS_ITS | Encounter Summary ---
Author Organization [facility] Address [address] [place] [address] Care Team Providers Care Christmas Tree Grader Name Role Phone Elsewhere, Pcp Primary Care Provider Unavailabl e Reason for Referral * Outpatient (Routine) - Authorized Specialty Diagnoses / Procedures Referred By Rosa panda Referred To Contact Diagnoses Cyst Renal Procedures US Kidneys Bilateral with Bladder Maximus Callejas M.D. [address] [place] [address] [facility] Referral ID Status Reason Start Date Expiration Date V isits Requested Visits Authorized [id number] Authorized 01/13/2024 01/12/2025 1 1 * Outpatient (Routine) - Authorized Specialty Diagnoses / Procedures Referred By Rosa t Referred To Contact Nephrology and Hypertension Diagnoses Cyst Renal Maximus Callejas M.D. [address] [place] [address] [facility] Referral ID Status Reason Start Date Expiration Date V isits Requested Visits Authorized [id number] Authorized 01/13/2024 07/14/2025 1 1 Scheduling Instructions Transfer care to a Director Of Marketing Communications in the cystic disease subgroup. Reason for Visit * Reason Comments Follow-up Orders Future visit Encounter Details Date Type Department Care Team (Latest Contact Info) Description 01/13/2024 Clinical Communication Division of Nephrology and Hypertension in [place], [place] [address] [place] [address] Maximus Callejas M.D. Follow-up Orders (Future visit) Social History Tobacco Use Types Packs/Day Years Used Date Smoking Tobacco: Never Passive Smoke Exposure: Never Smokeless Tobacco: Never Alcohol Use Standard Drinks/Week Comments No 0 (1 standard drink = 0.6 oz pur e alcohol) [facility] Utilities Answer Date Recorded In the past 12 months has th e [employer], gas, oil, or water [employer] threatened to shut off services in your [...] week 07/14/2022 How often do you attend [facility] or nondenominational services? Patient declined 07/14/2022 Do you belong to any clubs o r organizations such as sabianist groups, unions, fraternal or athletic groups, or [...] and heating? Not hard at all 06/05/2021 [facility] [place] of Occupat ional Health - Occupational Stress [...] your living situation today? I have a [facility] place to live 01/07/2024 Education Answer Date Recorded What is the highest level of school you have completed or the highest degree you have received? Master's degree (e.g., MA, MS, Mikaela, MEd, MECHANICAL SYSTEMS ENGINEER, CYRUS) 11/10/2019 Sex and Gender Information Value Date Recorded Sex Assigned at Female 07/14/2022 9:10 PM CDT Gender Identity Female 07/14/2022 9:10 PM CDT Sexual Orientation Straight 07/14/2022 9: 10 PM CDT documented as of this encounter Plan of Treatment Scheduled Orders Name Type Priority Associated Diagnoses Order Schedule US Kidneys Bilateral with Bladder Imaging RAD - Routine (most inpatients and all outpatients) Cyst Renal Expected: 01/12/2025, Expires: 07/14/2026 CBC without Differential Lab Routine Cyst Renal Expected: 01/12/2025, Expires: 07/14/2026 Basic Metabolic Panel Lab Routine Cyst Renal Expected: 01/12/2025, Expires: 07/14/2026 Lipid Panel Lab Routine Cyst Renal Hyperlipidemia Mixed Expected: 01/12/2025, Expires: 07/14/2026 Scheduled Referrals Name Type Priority Associated Diagnoses Order Schedule Nephrology and Hypertension office visit (clinic) Outpatient Referral Routine Cyst Renal Expected: 01/12/2025, Expires: 07/14/2026 documented as of this encounter Visit Diagnoses Diagnosis Cyst Renal- Primary Hyperlipidemia Mixed documented in this encounter Care Teams Christmas Tree Grader Relationship Specialty Start Date End Date Elsewhere, Pcp PCP - General Internal Medicine 09/04/22 documented as of this encounter
--- OUTSIDE RECORDS SUMMARY | 2024-04-05 10:08 | XMS_ITS | Encounter Summary ---
Author Organization [facility] Address [address] [place] [address] Care Team Providers Care Drafter Engineering Name Role Phone Elsewhere, Pcp Primary Care Provider Unavailabl e Reason for Referral * Outpatient (Routine) - Closed Specialty Diagnoses / Procedures Referred By Rosa panda Referred To Contact Diagnoses Cyst Renal Nephrolithiasis Procedures US Kidneys Bilateral with Bladder Maximus Callejas M.D. [address] [place] [address] [facility] Referral ID Status Reason Start Date Expiration Date Visits Re quested Visits Authorized [id number] Closed 09/11/2022 09/11/2023 1 1 Reason for Visit * Outpatient (Routine) - Closed Specialty Diagnoses / Procedures Referred By Rosa panda Referred To Contact Diagnoses Cyst Renal Nephrolithiasis Procedures US Kidneys Bilateral with Bladder Maximus Callejas M.D. [address] [place] [address] [facility] Referral ID Status Reason Start Date Expiration Date Visits Re quested Visits Authorized [id number] Closed 09/11/2022 09/11/2023 1 1 Encounter Details Date Type Department Care Team (Latest Contact Info) Description 01/12/2024 12:09 PM CDT - 01/12/2024 11:59 PM CDT Hospital Encounter Department of Radiology, [facility], in [place], [place] [address] [place] [phone] Maximus Callejas M.D. Cyst Renal; Nephrolithiasis Discharge Disposition: Home or Self Care Social History Tobacco Use Types Packs/Day Years Used Date Smoking Tobacco: Never Passive Smoke Exposure: Never Smokeless Tobacco: Never Alcohol Use Standard Drinks/Week Comments No 0 (1 standard drink = 0.6 oz pur e alcohol) [facility] Utilities Answer Date Recorded In the past 12 months has e [employer], gas, oil, or water company threatened to [...] How often do you attend chur or shinto services? Patient declined 07/14/2022 Do you belong to any clubs o r organizations such as evangelical groups, unions, fraternal or athletic groups, or [...] and heating? Not hard at all 06/05/2021 [facility] [place] of Occupat ional Health - Occupational Stress [...] your living situation today? I have a [facility] place to live 01/07/2024 Education Answer Date Recorded What is the highest level of school you have completed or the highest degree you have received? Master's degree (e.g., MA, MS, Mikaela, MEd, SENIOR FUND ACCOUNTANT, CYRUS) 11/10/2019 Sex and Gender Information Value [...] CPAP Diagnosis: Obstructive Sleep Apnea Pressure Setting: UNABLE TO FIND vit C/E/Zn/coppr/lutein/verónica adolfo (PRESERVISION AREDS-2 ORAL) DME CPAPIndications:Obstru ctive Sleep Apnea Adult DME Order 1 each 07/18/2022 01/13/2024 vitamins A,C,R-vtri-evbpve (PRESERVISION AREDS) 7,160 Units-113 mg-100 Units per tablet Take 1 tablet by mouth 2 (two) times a day. 09/15/2017 01/13/2024 documented as of this encounter Plan of Treatment Not on file documented as of this encounter Procedures Procedure Name Priority Date/Time Associated Diagnosis Comments US KIDNEYS BILATERAL WITH BLADDER RAD - Routine (most inpatients and all outpatients) 01/12/2024 1:46 PM CDT Cyst Renal Nephrolithiasis documented in this encounter Results * US Kidneys Bilateral with Bladder (01/12/2024 [...] with CT. Maximus SAINI US PROCEDURE S documented in this encounter Visit Diagnoses Diagnosis Cyst Renal Nephrolithiasis documented in this encounter Care Teams Drafter Engineering Relationship Specialty Start Date End Date Elsewhere, Pcp PCP - General Internal Medicine 09/04/22 documented as of this encounter
--- OUTSIDE RECORDS SUMMARY | 2024-04-05 10:08 | XMS_ITS | Referral Summary ---
Author Organization [facility] Address [address] [place] [address] Care Team Providers Care Harness Placer Name Role Phone Elsewhere, Pcp Primary Care Provider Unavailabl e Source Comments Patient records contain information from all sites at [facility]. For routine questions regarding patient records, call [phone] during business hours, M-F 8:00 AM - 5:00 PM Central Time. Record requests for emergency care only can be directed to [phone] at any time.[facility] Encounters Date Type Department Care Team Description 03/05/2024 CPAP Download Remote Patient Monitoring [facility] [address] [place] [address] [facility], Provider 02/03/2024 CPAP Download Remote Patient Monitoring [facility] [address] [place] [address] [facility], Provider 01/27/2024 10:20 AM CDT - 01/27/2024 11:59 PM CDT Hospital Encounter Department of Laboratory Medicine and Pathology, [facility], in [place], [place] [address] [place] [address] Maximus Callejas M.D. Deficiency Vitamin D Discharge Disposition: Home or Self Care 01/13/2024 2:30 PM CDT Office Visit [facility] in [place], [place] [address] [place] [address] Mayur Holm M.D. Apnea Sleep Obstructive (Primary Dx) 01/13/2024 Clinical Communication Division of Nephrology and Hypertension in [place], [place] [address] [place] [phone] Maximus Callejas M.D. Follow-up Orders (Future visit) 01/13/2024 2:15 PM CDT Telemedicine [facility] in [place], [place] [address] [place] [phone] Amelia Jensen R.N. Obstructive Sleep Apnea Adult (Primary Dx) 01/13/2024 10:30 AM CDT Telemedicine Division of Nephrology and Hypertension in [place], [place] [address] [place] [phone] Maximus Callejas M.D. Cyst Renal; Nephrolithiasis 01/12/2024 11:41 AM CDT - 01/12/2024 12:08 PM CDT Hospital Encounter Department of Laboratory Medicine and Pathology, [facility] in [place], [place] [address] [place] [phone] Maximus Callejas M.D. Cyst Renal; Nephrolithiasis; Hyperlipidemia Mixed Discharge Disposition: Home or Self Care 01/12/2024 12:09 PM CDT - 01/12/2024 11:59 PM CDT Hospital Encounter Department of Radiology, [facility] in [place], [place] [address] [place] [phone] Maximus Callejas M.D. Cyst Renal; Nephrolithiasis Discharge Disposition: Home or Self Care 01/09/2024 2:00 PM CDT Clinical Communication Virtual Review in [place], [place] [address] [place] [address] Pre-visit Intake from Last 3 Months Allergies Active Allergy Reactions Criticality Noted Date [...] 11/25/2008 Rhinitis Allergic 04/02/2006 Acne Rosacea 03/31/2006 Immunizations Name Administration Dates Next Due HZV (ZOSTAVAX) 04/08/2013 HepB, Unspecified 11/13/2000,06/13/2000,05/12/20 00 Influenza (IM) Preservative Free 09/13/2016,08/14,07/10/2009 Influenza Split 07/14/2013,11/28/2006 PCV13 11/13/2016 PPSV23 05/30/2014 Td Preservative Free (TENIVA C, DECAVAC) 01/30/2015 Td, (Adult) Unspecified 07/12/2002 Tdap 09/30/2008 influenza high dose (65 year s or older) (PF) 08/12/2018,11/26/2017,08/10/2015,2013,09/07/2013,07/14/2013 Social History Tobacco Use Types Packs/Day Years Used Date Smoking Tobacco: Never Passive Smoke Exposure: Never Smokeless Tobacco: Never Tobacco Cessation:Counseling Given: Not Answered Alcohol Use Standard Drinks/Week Comments No 0 (1 standard drink = 0.6 oz pur e alcohol) [facility] Utilities Answer Date Recorded In the past 12 months has th e electric, gas, oil, or water DCWafers threatened to shut off services in your [...] often do you attend chur ch or latter day services? Patient declined 07/14/2022 Do you belong to any clubs o r organizations such as zoroastrianism groups, unions, fraternal or athletic groups, or [...] and heating? Not hard at all 06/05/2021 [facility] - Occupational [...] your living situation today? I have a [facility] place to live 01/07/2024 Education Answer Date Recorded What is the highest level of school you have completed or the highest degree you have received? Master's degree (e.g., MA, MS, Mikaela, MEd, CONTAINER SHOP WELDER, CYRUS) 11/10/2019 Sex and Gender Information Value Date Recorded Sex Assigned at Female 07/14/2022 9:10 PM CDT Gender Identity Female 07/14/2022 9:10 PM CDT Sexual Orientation Straight 07/14/2022 9: 10 PM CDT Last Filed Vital Signs Vital Sign Reading Time Taken Comments Blood Pressure 146/74 09/09/2022 1:55 PM SCHOOL PSYCHOLOGY SPECIALIST / 5 Pulse 80 11/10/2019 8:37 AM SCHOOL PSYCHOLOGY SPECIALIST Temperature 36.7 ??C (98.1 ??F) 08/12/2018 8:08 AM CD T Respiratory Rate - - Oxygen Saturation - - Inhaled Oxygen Concentration - - Weight 74.8 kg (165 lb) 09/09/2022 1:55 PM SCHOOL PSYCHOLOGY SPECIALIST Height 167.6 cm (5' 6) 06/11/2021 3:11 PM CDT Body Mass Index 26.63 06/11/2021 3:11 PM CDT Plan of Treatment Not on file Medical Devices Implanted Type Area Lockstitch Binder Device Identifier Shelf Expiration Date Model / Serial / Lot Mesh Marlex 6 X 6 - Mack [id number] Implanted:Qty: 1 on 03/31/2009 Mesh or Patch Other/Legacy - See Implant Description Description:Device Manufactu rer - Medix. Device Status Text - [id number]. [...] developed and its performance characteristics determined by [facility] in a manner consistent with CLIA requirements. This test has not been cleared or approved by the U.S. Food and Drug Administration. Blood (Blood, Venous) 01/29/2024 9:45 AM CDT 02/02/2024 8:43 AM CDT Narrative Resulting Agency Comment Mailed In Specimen Maximus Callejas M.D. LAB BLOOD ADD-ON [facility] [address] [place] [address] [facility] [address] [place] [address] [place] [address] * US Kidneys Bilateral with Bladder (01/12/2024 [...] CDT Maximus Callejas M.D. LAB BLOOD ADD-ON [facility] [place] [address] [place] [address], [facility] [place] [address] * (ABNORMAL) CBC without Differential (01/12/2024 11:59 [...] CDT Maximus Callejas M.D. LAB BLOOD ADD-ON Performing Organization Address [facility] Co de Phone Number [facility] [address] [place] [address], [facility] DTL [facility] [address] [place] [address] * Vitamin B12 Assay (01/12/2024 11:59 AM CDT) [facility] Vitamin B12 Assay, S 592 180 - [...] CDT Maximus Callejas M.D. LAB BLOOD ADD-ON Performing Organization Address City/[facility] Co de Phone Number [facility] [address] [place] [address], [facility] D[facility] [address] [place] [address] * Basic Metabolic Panel (01/12/2024 11:59 AM CDT) [facility] Potassium, S 4.2 3.6 - 5.2 mmol/L [...] CDT Maximus Callejas M.D. LAB BLOOD ADD-ON [facility] [address] [place] [address], [facility] DTL [facility] [address] [place] [address] from Last 3 Months or Most Recently Relevant to Health Maintenance Advance Directives For more information, please contact: [phone] Documents on File Type Date Recorded Patient Digital Account Executive Expl anation Advance Directives 03/31/2009 12:00 AM Leg acy document. See document viewer. Care Teams Harness Placer Relationship Specialty Start Date End Date Elsewhere, Pcp PCP - General Internal Medicine 09/04/22
--- OUTSIDE RECORDS SUMMARY | 2024-04-05 10:08 | XMS_ITS | Encounter Summary ---
Author Organization [facility] Address [address] [place] [address] Care Team Providers Care Business Development Agent Name Role Phone Elsewhere, Pcp Primary Care Provider Unavailabl e Encounter Details Date Type Department Care Team (Late st Contact Info) Description 11/02/2023 CPAP Download Remote Patient Monitoring [facility] [address] [place] [address] [facility], Provider Social History Tobacco Use Types Packs/Day [...] often do you attend chur ch or evangelical services? Patient declined 07/14/2022 Do you belong to any clubs o r organizations such as oriental orthodox groups, unions, fraternal or athletic groups, or [...] and heating? Not hard at all 06/05/2021 [facility] - Occupational Stress Questionnaire Answer Date [...] place to sleep or slept in a fdc (including now)? No 07/14/2022 Nutrition Answer Date [...] Master's degree (e.g., MA, MS, Mikaela, MEd, WEAPONS SYSTEM INSTRUMENT MECHANIC, CYRUS) 11/10/2019 Sex and Gender Information Value Date Recorded Sex Assigned at Female 07/14/2022 9:10 PM CDT Gender Identity Female 07/14/2022 9:10 PM CDT Sexual Orientation Straight 07/14/2022 9: 10 PM CDT documented as of this encounter Plan of Treatment Not on file documented as of this encounter Visit Diagnoses Not on filedocumented in this encounter Care Teams Business Development Agent Relationship Specialty Start Date End Date Elsewhere, Pcp PCP - General Internal Medicine 09/04/22 documented as of this encounter
--- OUTSIDE RECORDS SUMMARY | 2024-04-05 10:08 | XMS_ITS | Encounter Summary ---
Author Organization [facility] Address [address] [place] [address] Care Team Providers Care Mold Insert Changer Name Role Phone Elsewhere, Pcp Primary Care Provider Unavailabl e Encounter Details Date Type Department Care Team (Latest Contact Info) Description 01/12/2024 11:41 AM CDT - 01/12/2024 12:08 PM CDT Hospital Encounter Department of Laboratory Medicine and Pathology, [facility], in [place], [place] [address] [place] [address] Maximus Callejas M.D. Cyst Renal; Nephrolithiasis; Hyperlipidemia Mixed Discharge Disposition: Home or Self Care Social History Tobacco Use Types Packs/Day Years Used Date Smoking Tobacco: Never Passive Smoke Exposure: Never Smokeless Tobacco: Never Alcohol Use Standard Drinks/Week Comments No 0 (1 standard drink = 0.6 oz pur e alcohol) [facility] Utilities Answer Date Recorded In the [...] often do you attend chur ch or druze services? Patient declined 07/14/2022 Do you belong to any clubs o r organizations such as samaritan groups, unions, fraternal or athletic groups, or [...] and heating? Not hard at all 06/05/2021 [facility] - [facility]ational Stress Questionnaire Answer [...] Date Recorded Nutrition: EVOO Fat Source No 03/27 /2024 On average, how many serving s of [...] your living situation today? I have a [facility] place to live 01/07/2024 Education Answer Date Recorded What is the highest level of school you have completed or the highest degree you have received? Master's degree (e.g., MA, MS, Mikaela, MEd, MEDICAL DIRECTOR/HEAD TEAM PHYSICIAN, CYRUS) 11/10/2019 Sex and Gender Information Value [...] DME Order 1 each 07/18/2022 01/13/2024 vitamins A,C,Y-tewu-sdaivk (PRESERVISION AREDS) 7,160 Units-113 mg-100 Units per tablet Take 1 tablet by mouth 2 (two) times a day. 09/15/2017 01/13/2024 documented as of this encounter Plan of Treatment Not on file documented as of this encounter Procedures Procedure Name Priority Date/Time Associated Diagnosis Comments LIPID PANEL, S Routine 01/12/2024 11:59 AM CDT Cyst Renal Nephrolithiasis Hyperlipidemia Mixed CBC WITHOUT DIFFERENTIAL, B Routine 01/12/2024 11:59 AM CDT Cyst Renal Nephrolithiasis VITAMIN B12 ASSAY, S Routine 01/12/2024 11:59 AM CDT Cyst Renal Nephrolithiasis BASIC METABOLIC PANEL, S/P Routine 01/12/2024 11:59 AM CDT Cyst Renal Nephrolithiasis documented in this encounter Results * Vitamin B12 Assay (01/12/2024 11:59 AM CDT) Vitamin B12 Assay, S 592 180 - [...] CDT Maximus Callejas M.D. LAB BLOOD ADD-ON [place] [address] [place] [address], [facility] [address] [address] * Lipid Panel (01/12/2024 11:59 AM CDT) [...] CDT Maximus Callejas M.D. LAB BLOOD ADD-ON [facility] [place] [address] [place] [address], [facility] [address] [place] [address] * Basic Metabolic Panel (01/12/2024 11:59 AM [...] CDT Maximus Callejas M.D. LAB BLOOD ADD-ON [address] [address], [facility] [address] [address] * (ABNORMAL) CBC without Differential (01/12/2024 11:59 [...] CDT Maximus Callejas M.D. LAB BLOOD ADD-ON [facility] [address] [place] [address], [facility] [address] [place] [address] documented in this encounter Visit Diagnoses Diagnosis Cyst Renal Nephrolithiasis Hyperlipidemia Mixed documented in this encounter Care Teams Mold Insert Changer Relationship Specialty Start Date End Date Elsewhere, Pcp PCP - General Internal Medicine 09/04/22 documented as of this encounter
--- OUTSIDE RECORDS SUMMARY | 2024-04-05 10:09 | XMS_ITS | Clinical Summary ---
Author Organization [facility] Address [address] [place] [address] Care Team Providers Care Rounder Hand Name Role Phone Sal Arcos MD Primary Care Provider Unavaila ble Source Comments You are receiving this document as you are listed as the primary care provider,follow-up provider, or the patient has been referred to you for consultation.This is in compliance with the Medicare andMedicaid EHR Incentive Program,which states Providers who transition their patient to another setting of careor provider of care or refers their patient to another provider of care shouldprovide summary care record for each transition of care or referral. [facility] Allergies Active Allergy Reactions Criticality Noted Date Comments Amoxicillin 10/27/2014 Azithromycin 10/27/2014 Bacitracin 10/13/2009 Cefuroxime 10/09/2017 Other reaction(s): Hives / Skin Rash Latex 12/01/2014 Possible latex allergy vs adhesive Polymyxin B 10/13/2009 Medications Medication Sig Dispensed Refills Start Date End Date Status cholecalciferol (AKA VITAMIN D3) 4000 units tablet Take 4,000 Units by mouth daily. Active Multiple Vitamins-Minerals (OCUVITE PRESERVISION OR) Active Cyanocobalamin (VITAMIN B-12) 500 MCG tablet Take 500 mcg by mouth daily. Active Family History Medical History Relation Name Comments Cancer Mother Diabetes Maternal Grandfather Osteoporosis Maternal Grandmother Cancer Paternal Grandfather Heart Disease Paternal Grandfather Stroke Paternal Grandfather Anesthesia Reaction Negative Family History Broken Bones Negative Family History Clotting Disorder Negative Family History Relation Name Status Comments Mother Maternal Grandfather Maternal Grandmother Paternal Grandfather Social History Tobacco Use Types Packs/Day Years Used Date Smoking Tobacco: Never Smokeless Tobacco: Never Sex and Gender Information Value Date Recorded Sex Assigned at Not on file Gender Identity Not on file Sexual Orientation Not on file Last Filed Vital Signs Vital Sign Reading Time Taken Comments Blood Pressure - - Pulse - - Temperature - - Respiratory Rate - - Oxygen Saturation - - Inhaled Oxygen Concentration - - Weight 83.9 kg (185 lb) 10/27/2014 11:23 AM BOX CUTTER Height 168.9 cm (5' 6.5) 10/27/2014 11:23 AM CS T Body Mass Index 29.41 10/27/2014 11:23 AM BOX CUTTER Plan of Treatment Health Maintenance Due Date Last Done Comments Colon Cancer Screening Plan Due 1950 Hep C Screening (Preventive Services) 1950 Medicare Annual Wellness Visit 1950 Mammogram 1950 Dexa 2013 Zoster/Shingles (2 of 3) 06/03/2013 04/08/2013 DTaP/Tdap/Td (2 - Tdap) 09/30/2018 09/30/2008, 07/12 COVID-19 Vaccine (3 - season) 2023 12/25/2020, 11/25/2020 Influenza (Season Ended) 2024 020, 07/23/2019, 08/12/2018, Additional history exists Hib Aged Out 11/13/2000, 10/1999, 05/12/2000 No longer eligible based on patient's age to complete this topic Pneumococcal 65+ Yrs Completed 11/13/2016, 05/30/20 14 HepA Aged Out No longer eligi ble based on patient's age to complete this topic HepB Aged Out No longer eligi ble based on patient's age to complete this topic IPV (Polio) Aged Out No longer eligi ble based on patient's age to complete this topic MCV4 Aged Out No longer eligi ble based on patient's age to complete this topic Care Teams Rounder Hand Relationship Specialty Start Date End Date Sal Arcos MD PCP - General 10/07/14
--- OUTSIDE RECORDS SUMMARY | 2024-04-05 10:09 | XMS_ITS | Clinical Summary ---
Author Organization [facility] Address [address] [place] [address] Care Team Providers Care Resistor Coater Name Role Phone Lien Hernadez MD Primary Care Provider + Allergies Active Allergy Reactions Criticality Noted Date Comments Amoxicillin 12/18/2016 Other reaction(s): Awake all night Azithromycin 10/13/2009 Bacitracin 10/13/2009 Cefuroxime Axetil 10/09/2017 Other reaction(s): Hives / Skin Rash Latex 12/01/2014 Polymyxin B Sulfate 10/13/2009 Medications Medication Sig Dispensed Refills Start Date End Date Status cholecalciferol, Vitamin D3, 1,000 unit oral tablet Take 3 by oral route daily 12/18/2016 Active CPAP Diagnosis: Obstructive Sleep Apnea Pressure Setting: Active vit C/E/Zn/coppr/lutein/ zeaxan (PRESERVISION AREDS-2 ORAL) Take by mouth. Active cyanocobalamin, vitamin B-12, 500 mcg oral chew tab Chew. 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 Hyperlipidemia LDL goal <130 04/16/2018 04/16/2018 Dysuria 12/18/2016 04/16/2018 Hyperlipidemia 12/07/2015 04/16/2018 Gastroesophageal reflux disease 07/13/2015 04/16/2018 Postmenopausal bleeding 10/13/2009 07/02/2018 Spasm of muscle 10/13/2009 04/16/2018 Viremia 10/13/2009 04/16/2018 Encounters Date Type Department Care Team Description 02/25/2024 Order-Scan [address] [place] [address] Reported, Patient 01/29/2024 9:40 AM CDT Beaker Procedure [address] [place] [phone] 01/29/2024 Travel from Last 3 Months Immunizations Name Administration Dates Next Due HIB/HepB 11/13/2000,06/13/2000,05/12/2000 Hep B Adult 11/13/2000,06/13/2000,05/12/2000 Influenza 07/19/2021, 9,07/23/2019,2015,07/14/2013,09/01/2010,09/01/2010,0 07/10/2009,07/10/2009,09/11/2007, 007,09/17/2004,07/18/2003 Influenza High Dose 07/24/2023, 2,07/23/2022,2019,08/12/2018,11/26/2017,08/10/2015,1 ,09/07/2013,07/14/2013 Moderna 12+ Yrs Bivalent COV ID Vaccine 02/06/2023,07/03/2022 Pneumococcal PCV13 11/13/2016 Pneumococcal PPSV23 05/30/2014 SPIKEVAX (Moderna) 12+ Yrs M ONOVALENT COVID Vaccine 01/25/2022,08/13/2021,12/25/2020,2020 Td 07/12/2002 Td PF >7 yrs 06/04/2021,01/30/2015 Tdap 09/30/2008 Zoster 04/08/2013 Zoster Recombinant 12/06/2021,09/24/2021 Family History Medical History Relation Comments High Blood Pressure Father Stroke Father Alcohol Abuse Maternal Grandfather Diabetes Maternal Grandfather Gastric/Stomach Cancer Mother Colon Cancer Paternal Grandfather Heart Disease Paternal Grandfather DE Breast Cancer Sister Migraines Sister Relation Status Comments Father Maternal Grandfather Mother Paternal Grandfather Sister Social History Tobacco Use Types Packs/Day Years Used Date Smoking Tobacco: Never Passive Smoke Exposure: Never Smokeless Tobacco: Never Tobacco Cessation:Counseling Given: Not Answered Alcohol Use Standard Drinks/Week Comments Not Currently 0 (1 standard drink = 0.6 oz pur e alcohol) PHQ-2 Answer Date Recorded PHQ2 Total 0 09/23/2023 Sex and Gender Information Value Date Recorded Sex Assigned at Not on file Gender Identity Not on file Sexual Orientation Not on file Last Filed Vital Signs Vital Sign Reading Time Taken Comments Blood Pressure 138/90 12/24/2023 4:41 PM CDT Pulse 78 12/24/2023 4:41 PM CDT Temperature 36.2 ??C (97.2 ??F) 09/23/2023 11:[address] Respiratory Rate 20 08/14/2022 11:28 AM CDT Oxygen Saturation 98% 12/24/2023 4:41 PM CDT Inhaled Oxygen Concentration - - Weight 89.1 kg (196 lb 8 oz) 12/24/2023 4:41 PM CDT Height 167 cm (5' 5.75) 12/24/2023 4:41 PM CDT Body Mass Index 31.96 12/24/2023 4:41 PM CDT Plan of Treatment Health Maintenance Due Date Last Done Comments RSV 60+ Yrs (1 - 1-dose 60+ series) 2008 Osteoporosis Screening 01/31/2019 4 (Previously completed) COVID-19 Vaccine (2022-2 4 season) 2023 02/06/2023, 07/03/2022, 01/25/2022, Additional history exists Mammogram Screening 04/08/2024 04/08/2023, 04/08/2023, 04/05/2022, Additional history exists Medicare Wellness Visit 07/16/2024 07/16/20, 04/05/2022, 04/04/2021, Additional history exists Yearly Review of HCD 09/22/2024 09/23/2023, 07/16/2023, 07/10/2023, Additional history exists Depression Assessment (PHQ-2) 09/23/2024, 07/16/2023, 07/10/2023 Lipid Screening 04/05/2027 04/05/2022, 03/14, 12/11/2016 Colonoscopy 02/24/2029 02/25/2024, 04/2019 (Previously completed), 12/24/2013 (Previously completed) Adult Tetanus Booster 06/04/2031 06/04/2021 , 01/30/2015, 09/30/2008, Additional history exists Pneumococcal 65+ Completed 11/13/2016, 05/30/2014 Hepatitis C Screening Completed 12/11/2016 Zoster Vaccine Completed 12/06/2021, 09/12, 04/08/2013 Influenza Vaccine Completed 07/24/2023, , 07/23/2022, Additional history exists Procedures Procedure Name Priority Date/Time Associated Diagnosis Comments SCANNED PROCEDURE Routine 02/25/2024 3:0 6 PM CDT MAMMO DIGITAL SCREENING BI 04/08/2023 9:02 AM CDT LIPID PANEL ([facility]) Routine 04/05/2022 8:49 AM CDT Screening for hyperlipidemia HEP C ANTIBODY STAT 12/11/2016 12:20 PM ANTENNA INSTALLER from Last 3 Months or Most Recently Relevant to Health Maintenance Results * SCANNED PROCEDURE (02/25/2024 3:06 PM CDT) Patient Reported PROCEDURE ORDERABLE * MAMMO DIGITAL SCREENING BI (04/08/2023 9:02 AM CDT) Anatomical Region Laterality Modality Breast Bilateral Mammography 04/08/2023 9:02 AM CDT Narrative 04/08/2023 9:02 AM CDT Original Report EXAM: ??FULL-FIELD DIGITAL BILATERAL SCREENING 3D TOMOSYNTHESIS MAMMOGRAPHY WITH CAD CLINICAL INFORMATION: ??Screening. ??The patient reports no palpable abnormalities or other breast concern. TECHNICAL INFORMATION: ??Bilateral craniocaudal and mediolateral oblique full-field digital views with breast 3D tomosynthesis images were obtained. ??CAD was applied. COMPARISON: 04/05/2022 INTERPRETATION: ??The breast tissue has scattered fibroglandular densities. ??There are no suspicious microcalcifications, focal dominant masses, or areas of architectural distortion. ??No evidence of malignancy. BREAST COMPOSITION: ??Category B. ??There are scattered areas of fibroglandular density. CONCLUSION: ?? 1. ??No evidence of malignancy. 2. ??BI-RADS 1. ??Negative. ?? RECOMMENDATION: ??Annual screening 3D mammography. The appropriate information has been entered into a reminder system with a targeted due date for the next mammogram. BI-RADS 1 = Negative. [facility] sent letter to patient regarding results. Read by: Sal Robert M.D. Reviewed and Electronically Signed by: Sal Robert M.D. Procedure Note Sal Robert MD - 04/08/2023 Original Report EXAM: FULL-FIELD DIGITAL BILATERAL SCREENING 3D TOMOSYNTHESIS MAMMOGRAPHY WITH CAD CLINICAL INFORMATION: Screening. The patient reports no palpable abnormalities or other breast concern. TECHNICAL INFORMATION: Bilateral craniocaudal and mediolateral oblique full-field digital views with breast 3D tomosynthesis images were obtained. CAD was applied. COMPARISON: 04/05/2022 INTERPRETATION: The breast tissue has scattered fibroglandular densities. There are no suspicious microcalcifications, focal dominant masses, or areas of architectural distortion. No evidence of malignancy. BREAST COMPOSITION: Category B. There are scattered areas of fibroglandular density. CONCLUSION: 1. No evidence of malignancy. 2. BI-RADS 1. Negative. RECOMMENDATION: Annual screening 3D mammography. The appropriate information has been entered into a reminder system with a targeted due date for the next mammogram. BI-RADS 1 = Negative. [facility] sent letter to patient regarding results. Read by: Sal Robert M.D. Reviewed and Electronically Signed by: Sal Robert M.D. Lien Hernadez MD MAMMO ORDERABLE * LIPID PANEL ([facility]) (04/05/2022 8:49 AM CDT) Cholesterol ([facility]) 148 100 - 199 mg/dL 04/06/2022 8:07 AM CDT [facility] Triglycerides ([facility]) 60 0 - 149 mg/dL 04/06/2022 8:07 AM CDT [facility] HDL Cholesterol ([facility]) 60 >39 mg/dL 04/06/2022 8:07 AM CDT [facility] VLDL Cholesterol Jm ([facility]) 12 5 - 40 mg/dL 04/06/2022 8:07 AM CDT [facility] LDL Cholesterol Calc - NIH ([facility]) 76 0 - 99 mg/dL 04/06/2022 8:07 AM CDT [facility] Blood Venipuncture / Unknown 04/05/2022 8:49 AM CDT 04/05/2022 8:49 AM CDT Narrative [facility] - 04/06/2022 8:07 AM CDT Performed at: ??01 - [facility] ??[id number] Associate Principal: Wally Garcia MD, Phone: ??[phone] Lien Hernadez MD [facility] ORDERABL ES [facility] [address] [id number] * HEP C ANTIBODY (12/11/2016 12:20 PM ANTENNA INSTALLER) HEP C ANTIBODY <0.1 0.0 - 0.9 s/co ratio [facility] [place] 12/11/2016 12:2 0 PM ANTENNA INSTALLER 12/11/2016 12:20 PM ANTENNA INSTALLER Lien Hernadez MD IMMUNOLOGY ORDER ABLE [facility] [address] [place] [address] [facility] [place] [address] [place], [place] [phone] from Last 3 Months or Most Recently Relevant to Health Maintenance Care Teams Resistor Coater Relationship Specialty Start Date End Date Lien Hernadez MD [address] [address] PCP - General Family Medicine 03/16/20
--- OUTSIDE RECORDS SUMMARY | 2024-04-05 10:09 | XMS_ITS | Encounter Summary ---
Author Organization [facility] Address [address] [place] [address] Care Team Providers Care Railroad Repairer Name Role Phone Lien Hernadez MD Primary Care Provider + Encounter Details Date Type Department Care Team (Latest Contact Info) Description 01/29/2024 Travel Social History Tobacco Use Types Packs/Day Years Used Date Smoking Tobacco: Never Passive Smoke Exposure: Never Smokeless Tobacco: Never Alcohol Use Standard Drinks/Week Comments Not Currently 0 (1 standard drink = 0.6 oz pur e alcohol) PHQ-2 Answer Date Recorded PHQ2 Total 0 09/23/2023 Sex and Gender Information Value Date Recorded Sex Assigned at Not on file Gender Identity Not on file Sexual Orientation Not on file documented as of this encounter Plan of Treatment Not on file documented as of this encounter Visit Diagnoses Not on filedocumented in this encounter Care Teams Railroad Repairer Relationship Specialty Start Date End Date Lien Hernadez MD [address] [address] PCP - General Family Medicine 03/16/20 documented as of this encounter
--- OUTSIDE RECORDS SUMMARY | 2024-04-05 10:09 | XMS_ITS | Referral Summary ---
Author Organization [facility] Address [address] [place] [address] Care Team Providers Care Lime Sludge Kiln Operator Name Role Phone Lien Hernadez MD Primary Care Provider + Encounters Date Type Department Care Team Description 02/25/2024 Order-Scan [address] [phone] Reported, Patient 01/29/2024 Travel 01/29/2024 9:40 AM CDT Beaker Procedure [address] [phone] from Last 3 Months Allergies Active Allergy [...] reflux disease 07/13/2015 04/16/2018 Postmenopausal bleeding 10/13/2009 07/0 02/2018 Spasm of muscle 10/13/2009 04/16/2018 Viremia 10/13/2009 04/16/2018 Immunizations Name Administration Dates Next Due HIB/HepB 11/13/2000,06/13/2000,05/12/2000 Hep B Adult 11/13/2000,06/13/2000,05/12/2000 Influenza 07/19/2021, 9,07/23/2019,2015,07/14/2013,09/01/2010,09/01/2010,0 07/10/2009,07/10/2009,09/11/2007, 007,09/17/2004,07/18/2003 Influenza High Dose 07/24/2023, 2,07/23/2022,2019,08/12/2018,11/26/2017,08/10/2015,1 ,09/07/2013,07/14/2013 Moderna 12+ Yrs Bivalent COV ID Vaccine 02/06/2023,07/03/2022 Pneumococcal PCV13 11/13/2016 Pneumococcal PPSV23 05/30/2014 SPIKEVAX (Moderna) 12+ Yrs M ONOVALENT COVID Vaccine 01/25/2022,08/13/2021,12/25/2020,2020 Td 07/12/2002 Td PF >7 yrs 06/04/2021,01/30/2015 Tdap 09/30/2008 Zoster 04/08/2013 Zoster Recombinant 12/06/2021,09/24/2021 Social History Tobacco Use Types Packs/Day Years [...] 12/24/2023 4:41 PM CDT Plan of Treatment Not on file Procedures Procedure Name Priority Date/Time Associated Diagnosis Comments SCANNED PROCEDURE Routine 02/25/2024 3:0 6 PM CDT MAMMO DIGITAL SCREENING BI 04/08/2023 9:02 AM CDT LIPID PANEL ([facility]) Routine 04/05/2022 8:49 AM CDT Screening for hyperlipidemia HEP C ANTIBODY STAT 12/11/2016 12:20 PM MANUFACTURING MANAGER from Last 3 Months or Most Recently [...] 8:07 AM CDT Performed at: ??01 - [facility] [employer] [place] [address], [place], [place] ??[id number] Talent Consultant: Wally Garcia MD, Phone: ??[phone] Lien Hernadez MD [facility] ORDERABL ES [facility] [address] [place] [phone] * HEP C ANTIBODY (12/11/2016 12:20 PM MANUFACTURING MANAGER) HEP C ANTIBODY <0.1 0.0 - 0.9 s/co ratio [facility] [place] 12/11/2016 12:2 0 PM MANUFACTURING MANAGER 12/11/2016 12:20 PM MANUFACTURING MANAGER Lien Hernadez MD IMMUNOLOGY ORDER ABLE [facility] [address] [place] [place] [phone] [facility] [address] [place] [address] from Last 3 Months or Most Recently Relevant to Health Maintenance Care Teams Lime Sludge Kiln Operator Relationship Specialty Start Date End Date Lien Hernadez MD [address] [address] PCP - General Family Medicine 03/16/20
--- OUTSIDE RECORDS SUMMARY | 2024-04-05 10:09 | XMS_ITS | Encounter Summary ---
Author Organization [facility] Address [address] [place] [address] Care Team Providers Care Administrative Officer Name Role Phone Lien Hernadez MD Primary Care Provider + Reason for Visit * Reason Comments Lab draw Encounter Details Date Type Department Care Team (Late st Contact Info) Description 01/29/2024 9:40 AM CDT Beaker Procedure [facility] [address] [place] [phone] Social History Tobacco Use Types Packs/Day Years [...] on filedocumented in this encounter Care Teams Administrative Officer Relationship Specialty Start Date End Date Lien Hernadez MD [address] [address] PCP - General Family Medicine 03/16/20 documented as of this encounter
--- OUTSIDE RECORDS SUMMARY | 2024-04-05 10:09 | XMS_ITS | Encounter Summary ---
Author Organization [facility] Address [address] [place] [address] Care Team Providers Care Laminating Machine Offbearer Name Role Phone Lien Hernadez MD Primary Care Provider + Encounter Details Date Type Department Care Team (Late st Contact Info) Description 02/25/2024 Order-Scan [address] [phone] Reported, Patient Social History Tobacco Use Types Packs/Day Years [...] Associated Diagnosis Comments SCANNED PROCEDURE Routine 02/25/2024 3:06 PM CDT documented in this encounter Results * SCANNED PROCEDURE (02/25/2024 3:06 PM CDT) Patient Reported PROCEDURE ORDERABLE documented in this encounter Visit Diagnoses Not on filedocumented in this encounter Care Teams Laminating Machine Offbearer Relationship Specialty Start Date End Date Lien Hernadez MD [facility] [address] [address] PCP - General Family Medicine 03/16/20 documented as of this encounter
--- OUTSIDE RECORDS SUMMARY | 2024-04-05 10:09 | XMS_ITS | Encounter Summary ---
Author Organization [facility] Address [address] [place] [address] Care Team Providers Care Ending Machine Operator Name Role Phone Lien Hernadez MD Primary Care Provider + Reason for Visit * Reason Onset Date Comments Blood in urine 06/20/2020 Blood in urine a nd lower back pain Encounter Details Date Type Department Care Team (Late st Contact Info) Description 06/20/2020 Nurse Triage [facility] [address] [place] [phone] Lien Hernadez MD [address] [phone] Social History Tobacco Use Types Packs/Day Years Used Date Smoking Tobacco: Never Smokeless Tobacco: Never Sex and Gender Information Value Date Recorded Sex Assigned at Not on file Gender Identity Not on file Sexual Orientation Not on file COVID-19 Exposure Response Date Recorded In the last month, have you been in contact with someone who was confirmed or suspected to have Coronavirus / COVID-19? No / Unsure 06/21/2020 12:26 AM CDT documented as of this encounter Miscellaneous Notes * Telephone Encounter - Nguyễn Bajwa RN - 06/20/2020 4:35 PM CDT Disposition: FYI-office visit scheduled- encounter closed Actions Requested: None Ok to leave detailed voice message:no PCP: see chart Preferred Pharmacy: see chart Summary of call details: patient called to report she has had blood in urine since this morning. [facility] Urgent office visit-transferred to [facility] to make the appointment Nguyễn Rey RN Care benefits advisor Reason for Disposition ??? Blood in urine (Exception: could be normal menstrual bleeding) Answer Assessment - Initial Assessment Questions 1. COLOR of URINE: Describe the color of the urine. (e.g., tea-colored, pink, red, blood clots, bloody) Tar Heel colored 2. ONSET: When did the bleeding start? Started this morning 3. EPISODES: How many times has there been blood in the urine? or How many times today? X 3 4. PAIN with URINATION: Is there any pain with passing your urine? If so, ask: How bad is the pain? (Scale 1-10; or mild, moderate, severe) - MILD - complains slightly about urination hurting - MODERATE - interferes with normal activities - SEVERE - excruciating, unwilling or unable to urinate because of the pain none 5. FEVER: Do you have a fever? If so, ask: What is your temperature, how was it measured, and when did it start? no 6. ASSOCIATED SYMPTOMS: Are you passing urine more frequently than usual? no 7. OTHER SYMPTOMS: Do you have any other symptoms? (e.g., back/flank pain, abdominal pain, vomiting) Low right back pain 8. : Is there any chance you are ? When was your last menstrual period? na Protocols used: URINE - BLOOD IN-A- * Telephone Encounter - Kimberly Quintero - 06/20/2020 4:25 PM CDT Patient Phone Message (General) Callback Number: [phone] Ok to leave a detailed message on voicemail? yes Who are you trying to reach?: Triage nurse Message: Patient stated that she has blood in her urine and that this started earlier today. She also stated that she has some lower back pain and that she has a 17 cm kidney cyst. Requested Action: Please advise. Kimberly Quintero Care Access (STUDY SPECIALIST) Department documented in this encounter Plan of Treatment Not on file documented as of this encounter Visit Diagnoses Not on filedocumented in this encounter Care Teams Ending Machine Operator Relationship Specialty Start Date End Date Lien Hernadez MD [address] [address] PCP - General Family Medicine 03/16/20 documented as of this encounter
--- NOTE | 2024-04-05 10:15 | CRLHL7_ITS ---
For Patients: As a result of the Cures Act, medical imaging exams and procedure reports are released immediately into your electronic medical record. You may view this report before your referring provider. If you have questions, please contact your health care provider. Indication: Nontoxic single thyroid nodule seen on CT Technique: Thyroid ultrasound with grayscale and color Doppler images Comparison: 03/07/2024 CT angiogram Findings: Right lobe: 4.7 x 1.7 x 1.7 cm. Lesion 1: 1.3 cm solid wider than tall hypoechoic peripherally calcified nodule, TR 4. Lesion 2: 0.7 cm hypoechoic solid wider than tall smoothly marginated TR 4. Left lobe: 4.5 x 1.3 x 1.4 cm. Lesion 2: 0.8 cm mixed cystic/solid wider than tall smoothly marginated TR 3. Isthmus: 3 mm in thickness. Homogeneous thyroid echotexture. No local adenopathy. Impression: 1.3 cm TR 4 right thyroid nodule. Follow-up recommended per TI-RADS criteria. ACR TI-RADS [email or web address] TR1: Benign No FNA TR2: Not Suspicious No FNA TR3: Mildly Suspicious FNA if greater than or equal to 2.5 cm Follow if greater than or equal to 1.5 cm TR4: Moderately Suspicious FNA if greater than or equal to 1.5 cm Follow if greater than or equal to 1 cm TR5: Highly Suspicious FNA if greater than or equal to 1 cm Follow if greater than or equal to 0.5 cm Dictated by Johnny Liz MD @ 04/06/2024 11:03:17 AM (Electronically Signed)
--- NOTE | 2024-04-05 11:00 | CRLHL7_ITS ---
For Patients: As a result of the Century Cures Act, medical imaging exams and procedure reports are released immediately into your electronic medical record. You may view this report before your referring provider. If you have questions, please contact your health care provider. INDICATION: Arm swelling, phlebitis. COMPARISON: Left upper extremity venous ultrasound 03/11/2024. TECHNIQUE: A compression venous ultrasound exam was performed of the left upper extremity using tanner-scale imaging, color Doppler, and spectral Doppler analysis. FINDINGS: Sonographic imaging of the left upper extremity demonstrates normal compressibility and color Doppler venous blood flow within the internal jugular, innominate, subclavian, axillary, brachial, basilic, cephalic, radial, and ulnar veins. IMPRESSION: 1. Negative for acute DVT in the left upper extremity. 2. Resolution of previously seen thrombus in the left cephalic vein. Dictated by Rosie Tucker MD @ 04/06/2024 2:21:26 AM (Electronically Signed)
== END 2024-04-05 10:06 | disposition home or self-care (01) ==
PROVIDERS: Visit Provider Internal Medicine
DX: E04.1 Nontoxic single thyroid nodule (principal); M79.603 Pain in arm, unspecified; I80.8 Phlebitis and thrombophlebitis of other sites
CPT/HCPCS: 76536; 93971

== ENCOUNTER 2024-04-12 08:07 | Outpatient (CLI) | payer MEDICARE, BC, SELFPAY ==
--- OUTSIDE RECORDS SUMMARY | 2024-04-12 08:10 | XMS_ITS | Clinical Summary ---
Author Organization [facility] Address [address] [place] [address] Care Team Providers Care Small Business Banking Officer Name Role Phone Elsewhere, Pcp Primary Care Provider Unavailabl e Source Comments Patient records contain information from all sites at [facility]. For routine questions regarding patient records, call [phone] during business hours, M-F 8:00 AM - 5:00 PM Central Time. Record requests for emergency care only can be directed to [phone] at any time.[facility] Allergies Active Allergy Reactions Criticality Noted Date [...] Encounters Date Type Department Care Team Description 04/05/2024 CPAP Download Remote Patient Monitoring [facility] [address] [place] [address] [facility], Provider 03/05/2024 CPAP Download Remote Patient Monitoring [facility] [address] [place] [address] [facility], Provider 02/03/2024 CPAP Download Remote Patient Monitoring [facility] [address] [place] [address] [facility], Provider 01/27/2024 10:20 AM CDT - 01/27/2024 11:59 PM CDT Hospital Encounter Department of Laboratory Medicine and Pathology, [facility], in [place], [place] [address] [place] [phone] Maximus Callejas M.D. Deficiency Vitamin D Discharge Disposition: Home or Self Care 01/13/2024 2:30 PM CDT Office Visit [facility] in [place], [place] [address] [place] [address] Mayur Holm M.D. Apnea Sleep Obstructive (Primary Dx) 01/13/2024 2:15 PM CDT Telemedicine [facility] in [place], [place] [address] [place] [phone] Amelia Jensen R.N. Obstructive Sleep Apnea Adult (Primary Dx) 01/13/2024 10:30 AM CDT Telemedicine Division of Nephrology and Hypertension in [place], [place] [address] [place] [address] Callejas, Maximus B, M.D. Cyst Renal; Nephrolithiasis 01/13/2024 Clinical Communication Division of Nephrology and Hypertension in [place], [place] [address] [place] [address] Maximus Callejas M.D. Follow-up Orders (Future visit) 01/12/2024 12:09 PM CDT - 01/12/2024 11:59 PM CDT Hospital Encounter Department of Radiology, [place], [place] [address] [place] [address] Maximus Callejas M.D. Cyst Renal; Nephrolithiasis Discharge Disposition: Home or Self Care 01/12/2024 11:41 AM CDT - 01/12/2024 12:08 PM CDT Hospital Encounter Department of Laboratory Medicine and Pathology, [place], [place] [address] [place] [address] Maximus Callejas M.D. Cyst Renal; Nephrolithiasis; Hyperlipidemia Mixed Discharge Disposition: Home or Self Care from Last 3 Months Immunizations Name Administration Dates Next Due HZV (ZOSTAVAX) 04/08/2013 HepB, Unspecified 11/13/2000,06/13/2000,05/12/20 00 Influenza (IM) Preservative Free 09/13/2016,08/14,07/10/2009 Influenza Split 07/14/2013,11/28/2006 PCV13 11/13/2016 PPSV23 05/30/2014 Td Preservative Free (TENIVA C, DECAVAC) 01/30/2015 Td, (Adult) Unspecified 07/12/2002 Tdap 09/30/2008 influenza high dose (65 year s or older) (PF) 08/12/2018,11/26/2017,08/10/2015,2013,09/07/2013,07/14/2013 Family History Medical History Relation Name Comments Arthritis Father Celso Parikhnbrian Hypertension Father Celso Parikhnbrian Transient ischemic attack Father Celso Tschunbrian Tuberculosis Father's Brother Rubens Alcohol abuse Maternal Grandfather Alois Diabetes Maternal Grandfather Alois Osteoporosis Maternal Grandmother Flower Other cancer Mother Connie Parikharchanabrian Stomach c ancer Rectal cancer Paternal Grandfather Randall Brown Arthritis Paternal Grandmother Sailaja Breast cancer Sister Tommy Migraines Sister Almtegan Relation Name Status Comments Father Celso Brown [...] drink = 0.6 oz pur e alcohol) [facility] Utilities Answer Date Recorded In the past 12 months has [employer], gas, oil, or water company threatened [...] often do you attend chur ch or sabianism services? Patient declined 07/14/2022 Do you belong to any clubs o r organizations such as buddhism groups, unions, fraternal or athletic groups, or [...] and heating? Not hard at all 06/05/2021 [facility] [place] of Occupat ional Health - Occupational Stress [...] Master's degree (e.g., MA, MS, Mikaela, MEd, TERADATA SOLUTION ARCHITECT, CYRUS) 11/10/2019 Sex and Gender Information Value Date Recorded Sex Assigned at Female 07/14/2022 9:10 PM CDT Gender Identity Female 07/14/2022 9:10 PM CDT Sexual Orientation Straight 07/14/2022 9: 10 PM CDT Last Filed Vital Signs Vital Sign Reading Time Taken Comments Blood Pressure 146/74 09/09/2022 1:55 PM SUPERVISOR ADVERTISING DISPATCH CLERKS 06/13 5 Pulse 80 11/10/2019 8:37 AM SUPERVISOR ADVERTISING DISPATCH CLERKS Temperature 36.7 ??C (98.1 ??F) 08/12/2018 8:08 AM CD T Respiratory Rate - - Oxygen Saturation - - Inhaled Oxygen Concentration - - Weight 74.8 kg (165 lb) 09/09/2022 1:55 PM SUPERVISOR ADVERTISING DISPATCH CLERKS Height 167.6 cm (5' 6) 06/11/2021 3:11 [...] history exists Medical Devices Implanted Type Area Welt Rander Device Identifier Shelf Expiration Date Model / Serial / Lot Mesh Marlex 6 X 6 - Mack [id number] Implanted:Qty: 1 on 03/31/2009 Mesh or Patch Other/Legacy - See Implant Description Description:Device Manufactu [facility] - Medix. Device Status Text - [id number]. [...] developed and its performance characteristics determined by [facility] in a manner consistent with CLIA requirements. This test has not been cleared or approved by the U.S. Food and Drug Administration. Blood (Blood, Venous) 01/29/2024 9:45 AM CDT 02/02/2024 8:43 AM CDT Narrative Resulting Agency Comment Mailed In Specimen Maximus Callejas M.D. LAB BLOOD ADD-ON [facility] [address] [place] [address] [facility] [address] [place] [address] [place] [address] * US Kidneys Bilateral with Bladder (01/12/2024 [...] CDT Maximus Callejas M.D. LAB BLOOD ADD-ON [place] [address] [place] [address], [facility] [address] [address] * (ABNORMAL) CBC without Differential (01/12/2024 11:59 [...] M.D. LAB BLOOD ADD-ON Performing Organization Address City/[facility] Co de Phone Number [facility] [address] [place] [address], [facility] DTL [facility] [address] [place] [address] * Vitamin B12 Assay (01/12/2024 11:59 AM CDT) Pathologist [facility] Vitamin B12 Assay, S [phone] - [...] M.D. LAB BLOOD ADD-ON Performing Organization Address City/[facility] Co de Phone Number [facility] [address] [place] [address], [facility] DTL [facility] [address] [place] [address] * Basic Metabolic Panel (01/12/2024 11:59 AM CDT) Pathologist [facility] Potassium, S 4.2 3.6 - 5.2 mmol/L [...] CDT Maximus Callejas M.D. LAB BLOOD ADD-ON [facility] [address] [place] [address], [place] [facility] [address] [place] [address] from Last 3 Months or Most Recently Relevant to Health Maintenance Advance Directives For more information, please contact: [phone] Documents on File Type Date Recorded Patient Kettle Tender Expl anation Advance Directives 03/31/2009 12:00 AM Leg acy document. See document viewer. Care Teams Small Business Banking Officer Relationship Specialty Start Date End Date Elsewhere, Pcp PCP - General Internal Medicine 09/04/22
--- OUTSIDE RECORDS SUMMARY | 2024-04-12 08:11 | XMS_ITS | Encounter Summary ---
Author Organization [facility] Address [address] [place] [address] Care Team Providers Care Predatory Animal Exterminator Name Role Phone Elsewhere, Pcp Primary Care Provider Unavailabl e Encounter Details Date Type Department Care Team (Late st Contact Info) Description 12/03/2023 CPAP Download Remote Patient Monitoring [facility] [address] [place] [address] [facility], Provider Social History Tobacco Use Types Packs/Day [...] often do you attend chur ch or confucianism services? Patient declined 07/14/2022 Do you belong [...] and heating? Not hard at all 06/05/2021 [facility] - Occupational Stress Questionnaire Answer Date Recorded [...] degree (e.g., MA, MS, Mikaela, MEd, SENIOR NET APPLICATION DEVELOPER, CYRUS) 11/10/2019 Sex and Gender Information Value Date Recorded Sex Assigned at Female 07/14/2022 9:10 PM CDT Gender Identity Female 07/14/2022 9:10 PM CDT Sexual Orientation Straight 07/14/2022 9: 10 PM CDT documented as of this encounter Plan of Treatment Not on file documented as of this encounter Visit Diagnoses Not on filedocumented in this encounter Care Teams Predatory Animal Exterminator Relationship Specialty Start Date End Date Elsewhere, Pcp PCP - General Internal Medicine 09/04/22 documented as of this encounter
--- OUTSIDE RECORDS SUMMARY | 2024-04-12 08:11 | XMS_ITS | Referral Summary ---
Author Organization [facility] Address [address] [place] [address] Care Team Providers Care Help Desk Representative Name Role Phone Lien Hernadez MD Primary Care Provider + Encounters Date Type Department Care Team Description 02/25/2024 Order-Scan [address] [phone] Reported, Patient 01/29/2024 Travel 01/29/2024 9:40 AM CDT Beaker Procedure [address] [phone] from Last 3 Months Allergies Active Allergy [...] HEP C ANTIBODY STAT 12/11/2016 12:20 PM OUTLET MANAGER from Last 3 Months or Most [...] 8:07 AM CDT Performed at: [facility] [address] [place] [address], [place], [place] ??[id number] Chemicals Distiller: Wally Garcia MD, Phone: ??[phone] Lien Hernadez MD [facility] [address] [place] [id number] * HEP C ANTIBODY (12/11/2016 12:20 PM OUTLET MANAGER) HEP C ANTIBODY <0.1 0.0 - 0.9 s/co ratio [facility] 12/11/2016 12:2 0 PM OUTLET MANAGER 12/11/2016 12:20 PM OUTLET MANAGER Lien Hernadez MD IMMUNOLOGY ORDER ABLE [facility] [address] [place] [address] [facility] [address] [place] [address] from Last 3 Months or Most Recently Relevant to Health Maintenance Care Teams Help Desk Representative Relationship Specialty Start Date End Date Lien Hernadez MD [address] [address] PCP - General Family Medicine 03/16/20
--- OUTSIDE RECORDS SUMMARY | 2024-04-12 08:11 | XMS_ITS | Encounter Summary ---
Author Organization [facility] Address [address] [place] [address] Care Team Providers Care Health Care Recruiter Name Role Phone Elsewhere, Pcp Primary Care Provider Unavailabl e Reason for Referral * Outpatient (Routine) - Authorized Specialty Diagnoses / Procedures Referred By Rosa panda Referred To Contact Diagnoses Cyst Renal Procedures US Kidneys Bilateral with Bladder Maximus Callejas M.D. [address] [place] [address] [facility] Referral ID Status Reason Start Date Expiration Date V isits Requested Visits Authorized [id number] Authorized 01/13/2024 01/12/2025 1 1 * Outpatient (Routine) - Authorized Specialty Diagnoses / Procedures Referred By Rosa t Referred To Contact Nephrology and Hypertension Diagnoses Cyst Renal Maximus Callejas M.D. [address] [place] [address] [facility] Referral ID Status Reason Start Date Expiration Date V isits Requested Visits Authorized [id number] Authorized 01/13/2024 07/14/2025 1 1 Scheduling Instructions Transfer care to a Software Development Leader in the cystic disease subgroup. Reason for Visit * Reason Comments Follow-up Orders Future visit Encounter Details Date Type Department Care Team (Latest Contact Info) Description 01/13/2024 Clinical Communication Division of Nephrology and Hypertension in [place], [place] [address] [place] [address] Maximus Callejas M.D. Follow-up Orders (Future visit) Social History Tobacco Use Types Packs/Day Years Used Date Smoking Tobacco: Never Passive Smoke Exposure: Never Smokeless Tobacco: Never Alcohol Use Standard Drinks/Week Comments No 0 (1 standard drink = 0.6 oz pur e alcohol) [facility] Utilities Answer Date Recorded In the past 12 months has th e [employer], gas, oil, or water [employer] threatened to shut off services in your [...] week 07/14/2022 How often do you attend [facility] or christian services? Patient declined 07/14/2022 Do you belong to any clubs o r organizations such as caodaism groups, unions, fraternal or athletic groups, or [...] and heating? Not hard at all 06/05/2021 [facility] [place] of Occupat ional Health - Occupational Stress [...] your living situation today? I have a [facility] place to live 01/07/2024 Education Answer Date Recorded What is the highest level of school you have completed or the highest degree you have received? Master's degree (e.g., MA, MS, Mikaela, MEd, SIGNALS COLLECTOR/ANALYST, CYRUS) 11/10/2019 Sex and Gender Information Value [...] Mixed documented in this encounter Care Teams Health Care Recruiter Relationship Specialty Start Date End Date Elsewhere, Pcp PCP - General Internal Medicine 09/04/22 documented as of this encounter
--- OUTSIDE RECORDS SUMMARY | 2024-04-12 08:11 | XMS_ITS | Encounter Summary ---
Author Organization [facility] Address [address] [place] [address] Care Team Providers Care Greenhouse Worker Name Role Phone Elsewhere, Pcp Primary Care Provider Unavailabl e Encounter Details Date Type Department Care Team (Latest Contact Info) Description 01/12/2024 11:41 AM CDT - 01/12/2024 12:08 PM CDT Hospital Encounter Department of Laboratory Medicine and Pathology, [facility], in [place], [place] [address] [place] [address] Maximus Callejas M.D. Cyst Renal; Nephrolithiasis; Hyperlipidemia Mixed Discharge Disposition: Home or Self Care Social History Tobacco Use Types Packs/Day Years Used Date Smoking Tobacco: Never Passive Smoke Exposure: Never Smokeless Tobacco: Never Alcohol Use Standard Drinks/Week Comments No 0 (1 standard drink = 0.6 oz pur e alcohol) [facility] Utilities Answer Date Recorded In the [...] often do you attend chur ch or christian services? Patient declined 07/14/2022 Do [...] and heating? Not hard at all 06/05/2021 [facility] - Occupational Stress Questionnaire Answer Date [...] your living situation today? I have a [facility] place to live 01/07/2024 Education Answer Date Recorded What is the highest level of school you have completed or the highest degree you have received? Master's degree (e.g., MA, MS, Mikaela, MEd, OFFICE WORKFORCE PLANNER, CYRUS) 11/10/2019 Sex and Gender Information Value [...] DME Order 1 each 07/18/2022 01/13/2024 vitamins A,C,W-eluw-awxoub (PRESERVISION AREDS) 7,160 Units-113 mg-100 Units per [...] CDT Maximus Callejas M.D. LAB BLOOD ADD-ON [place] [address] [place] [address], [facility] [address] [address] * Lipid Panel (01/12/2024 11:59 AM CDT) [...] CDT Maximus Callejas M.D. LAB BLOOD ADD-ON [facility] [place] [address] [address] [place] [address], [facility] [address] [place] [address] * Basic Metabolic Panel (01/12/2024 11:59 AM [...] CDT Maximus Callejas M.D. LAB BLOOD ADD-ON [address] [address], [facility] [address] [address] * (ABNORMAL) CBC without Differential (01/12/2024 11:59 [...] CDT Maximus Callejas M.D. LAB BLOOD ADD-ON [facility] [address] [place] [address], [facility] [address] [place] [address] documented in this encounter Visit Diagnoses Diagnosis Cyst Renal Nephrolithiasis Hyperlipidemia Mixed documented in this encounter Care Teams Greenhouse Worker Relationship Specialty Start Date End Date Elsewhere, Pcp PCP - General Internal Medicine 09/04/22 documented as of this encounter
--- OUTSIDE RECORDS SUMMARY | 2024-04-12 08:11 | XMS_ITS | Encounter Summary ---
Author Organization [facility] Address [address] [place] [address] Care Team Providers Care Chin Strap Cutter Name Role Phone Elsewhere, Pcp Primary Care Provider Unavailabl e Encounter Details Date Type Department Care Team (Late st Contact Info) Description 01/03/2024 CPAP Download Remote Patient Monitoring [facility] [address] [place] [address] [facility], Provider Social History Tobacco Use Types Packs/Day Years Used Date Smoking Tobacco: Never Smokeless Tobacco: Never Alcohol Use Standard Drinks/Week Comments No 0 (1 standard drink = 0.6 oz pur e alcohol) [facility] Utilities Answer Date Recorded In [...] often do you attend chur ch or jainism services? Patient declined 07/14/2022 Do you belong to any clubs o r organizations such as mandaeism groups, unions, fraternal or athletic groups, or [...] and heating? Not hard at all 06/05/2021 [facility] of Occupat ional Health - Occupational [...] your living situation today? I have a [facility] place to live 01/07/2024 Education Answer Date Recorded What is the highest level of school you have completed or the highest degree you have received? Master's degree (e.g., MA, MS, Mikaela, MEd, GLUING MACHINE ADJUSTER, CYRUS) 11/10/2019 Sex and Gender Information Value Date Recorded Sex Assigned at Female 07/14/2022 9:10 PM CDT Gender Identity Female 07/14/2022 9:10 PM CDT Sexual Orientation Straight 07/14/2022 9: 10 PM CDT documented as of this encounter Plan of Treatment Not on file documented as of this encounter Visit Diagnoses Not on filedocumented in this encounter Care Teams Chin Strap Cutter Relationship Specialty Start Date End Date Elsewhere, Pcp PCP - General Internal Medicine 09/04/22 documented as of this encounter
--- OUTSIDE RECORDS SUMMARY | 2024-04-12 08:11 | XMS_ITS ---
Author Organization [facility] Address [address] [place] [address] Care Team Providers Care Clinical Information Systems Director Name Role Phone Unavailable Unavailable Unavailable Surgery Details Not on file Complications Check Surgery Details section. Procedure Estimated Blood Loss Check Surgery Details section. Procedure Findings Check Surgery Details section. Procedure Specimens Taken Check Surgery Details section.
--- OUTSIDE RECORDS SUMMARY | 2024-04-12 08:11 | XMS_ITS | Clinical Summary ---
Author Organization [facility] Address [address] [place] [address] Care Team Providers Care Sliding Joint Maker Name Role Phone Lien Hernadez MD Primary [...] Type Department Care Team Description 02/25/2024 Order-Scan [address] [place] [address] Reported, Patient 01/29/2024 9:40 AM CDT Beaker Procedure [address] [place] [address] 01/29/2024 Travel from Last 3 Months Immunizations [...] Cancer Paternal Grandfather Heart Disease Paternal Grandfather ID Breast Cancer Sister Migraines Sister Relation Status [...] HEP C ANTIBODY STAT 12/11/2016 12:20 PM TATTOO IDENTIFIER from Last 3 Months or Most Recently [...] 8:07 AM CDT Performed at: ??01 - [facility] ??[id number] Bench Boring Machine Operator: Wally Garcia MD, Phone: ??[phone] Lien Hernadez MD [facility] ES [facility] [place] [address] [place] [id number] * HEP C ANTIBODY (12/11/2016 12:20 PM TATTOO IDENTIFIER) HEP C ANTIBODY <0.1 0.0 - 0.9 s/co ratio [facility] 12/11/2016 12:2 0 PM TATTOO IDENTIFIER 12/11/2016 12:20 PM TATTOO IDENTIFIER Lien Hernadez MD IMMUNOLOGY ORDER ABLE [facility] [address] [place] [address] [facility] [address] [place], [place] [id number] from Last 3 Months or Most Recently Relevant to Health Maintenance Care Teams Sliding Joint Maker Relationship Specialty Start Date End Date Lien Hernadez MD [address] [address] PCP - General Family Medicine 03/16/20
--- OUTSIDE RECORDS SUMMARY | 2024-04-12 08:11 | XMS_ITS | Encounter Summary ---
Author Organization [facility] Address [address] [place] [address] Care Team Providers Care Qc Manager Name Role Phone Elsewhere, Pcp Primary Care Provider Unavailabl e Encounter Details Date Type Department Care Team (Latest Contact Info) Description 01/27/2024 10:20 AM CDT - 01/27/2024 11:59 PM CDT Hospital Encounter Department of Laboratory Medicine and Pathology, [facility], in [place], [place] [address] [place] [address] Maximus Callejas M.D. Deficiency Vitamin D Discharge Disposition: Home or Self Care Social History Tobacco Use Types Packs/Day Years Used Date Smoking Tobacco: Never Passive Smoke Exposure: Never Smokeless Tobacco: Never Alcohol Use Standard Drinks/Week Comments No 0 (1 standard drink = 0.6 oz pur e alcohol) [facility] Utilities Answer Date Recorded In the past 12 months has [employer], gas, oil, or water company threatened [...] 07/14/2022 How often do you attend [facility] or taoist services? Patient declined 07/14/2022 Do you belong to any clubs o r organizations such as christianity groups, unions, fraternal or athletic groups, or [...] and heating? Not hard at all 06/05/2021 [facility] [place] of Occupat ional Health - Occupational Stress [...] your living situation today? I have a [facility] place to live 01/07/2024 Education Answer Date Recorded What is the highest level of school you have completed or the highest degree you have received? Master's degree (e.g., MA, MS, Mikaela, MEd, CHEMICALS DISTILLER, CYRUS) 11/10/2019 Sex and Gender Information Value [...] developed and its performance characteristics determined by [facility] in a manner consistent with CLIA requirements. This test has not been cleared or approved by the U.S. Food and Drug Administration. Blood (Blood, Venous) 01/29/2024 9:45 AM CDT 02/02/2024 8:43 AM CDT Narrative Resulting Agency Comment Mailed In Specimen Maximus Callejas M.D. LAB BLOOD ADD-ON [facility] [address] [place] [address] [facility] [address] [place] [address] [address] documented in this encounter Visit Diagnoses Diagnosis Deficiency Vitamin D documented in this encounter Care Teams Qc Manager Relationship Specialty Start Date End Date Elsewhere, Pcp PCP - General Internal Medicine 09/04/22 documented as of this encounter
--- OUTSIDE RECORDS SUMMARY | 2024-04-12 08:11 | XMS_ITS | Encounter Summary ---
Author Organization [facility] Address [address] [place] [id number] Care Team Providers Care Personal Lines Appraiser Name Role Phone Elsewhere, Pcp Primary Care Provider Unavailabl e Reason for Visit * Reason Onset Date Comments Pre-visit Intake 01/09/2024 Encounter Details Date Type Department Care Team (Latest Contact Info) Description 01/09/2024 2:00 PM CDT Clinical Communication Virtual Review in [place], [place] 200 [place] [address] Pre-visit Intake Social History Tobacco Use Types Packs/Day Years Used Date Smoking Tobacco: Never Passive Smoke Exposure: Never Smokeless Tobacco: Never Tobacco Cessation:Counseling Given: Not Answered Alcohol Use Standard Drinks/Week Comments No 0 (1 standard drink = 0.6 oz pur e alcohol) [facility] Utilities Answer Date Recorded In the past 12 months has [employer], gas, oil, or water [employer] threatened to shut off services in your [...] How often do you attend chur or christian services? Patient declined 07/14/2022 Do you belong to any clubs o r organizations such as christian groups, unions, fraternal or athletic groups, or [...] and heating? Not hard at all 06/05/2021 [facility] of Occupat ional Health - Occupational Stress [...] Master's degree (e.g., MA, MS, Mikaela, MEd, YOUTH MANAGER, CYRUS) 11/10/2019 Sex and Gender Information Value Date Recorded Sex Assigned at Female 07/14/2022 9:10 PM CDT Gender Identity Female 07/14/2022 9:10 PM CDT Sexual Orientation Straight 07/14/2022 9: 10 PM CDT documented as of this encounter Plan of Treatment Not on file documented as of this encounter Visit Diagnoses Not on filedocumented in this encounter Care Teams Personal Lines Appraiser Relationship Specialty Start Date End Date Elsewhere, Pcp PCP - General Internal Medicine 09/04/22 documented as of this encounter
--- OUTSIDE RECORDS SUMMARY | 2024-04-12 08:11 | XMS_ITS | Referral Summary ---
Author Organization [facility] Address [address] [place] [address] Care Team Providers Care Installation Superintendent Name Role Phone Elsewhere, Pcp Primary Care Provider Unavailabl e Source Comments Patient records contain information from all sites at [facility]. For routine questions regarding patient records, call [phone] during business hours, M-F 8:00 AM - 5:00 PM Central Time. Record requests for emergency care only can be directed to [phone] at any time.[facility] Encounters Date Type Department Care Team Description 04/05/2024 CPAP Download Remote Patient Monitoring [facility] [address] [place] [address] [facility], Provider 03/05/2024 CPAP Download Remote Patient Monitoring [facility] [address] [place] [address] [facility], Provider 02/03/2024 CPAP Download Remote Patient Monitoring [facility] [address] [place] [address] [facility], Provider 01/27/2024 10:20 AM CDT - 01/27/2024 11:59 PM CDT Hospital Encounter Department of Laboratory Medicine and Pathology, [facility], in [place], [place] [address] [place] [phone] Maximus Callejas M.D. Deficiency Vitamin D Discharge Disposition: Home or Self Care 01/13/2024 2:30 PM CDT Office Visit [facility] in [place], [place] [address] [place] [address] Mayur Holm M.D. Apnea Sleep Obstructive (Primary Dx) 01/13/2024 Clinical Communication Division of Nephrology and Hypertension in [place], [place] [address] [place] [phone] Maximus Callejas M.D. Follow-up Orders (Future visit) 01/13/2024 2:15 PM CDT Telemedicine [facility] in [place], [place] [address] [place] [address] Amelia Jensen R.N. Obstructive Sleep Apnea Adult (Primary Dx) 01/13/2024 10:30 AM CDT Telemedicine Division of Nephrology and Hypertension in [place], [place] [address] [place] [phone] Maximus Callejas M.D. Cyst Renal; Nephrolithiasis 01/12/2024 11:41 AM CDT - 01/12/2024 12:08 PM CDT Hospital Encounter Department of Laboratory Medicine and Pathology, [facility] in [place], [place] [address] [place] [address] Maximus Callejas M.D. Cyst Renal; Nephrolithiasis; Hyperlipidemia Mixed Discharge Disposition: Home or Self Care 01/12/2024 12:09 PM CDT - 01/12/2024 11:59 PM CDT Hospital Encounter Department of Radiology, [facility] in [place], [place] [address] [place] [address] Maximus Callejas M.D. Cyst Renal; Nephrolithiasis Discharge Disposition: Home or Self Care from Last 3 Months Allergies Active Allergy [...] drink = 0.6 oz pur e alcohol) [facility] Utilities Answer Date Recorded In the past 12 months has e [employer], [employer], or [employer] threatened to shut off services in your [...] any clubs o r organizations such as jain groups, unions, fraternal or athletic groups, or [...] and heating? Not hard at all 06/05/2021 [facility] of Occupat ional Health [...] your living situation today? I have a [facility] place to live 01/07/2024 Education Answer Date Recorded What is the highest level of school you have completed or the highest degree you have received? Master's degree (e.g., MA, MS, Mikaela, MEd, MIX HOUSE TENDER, CYRUS) 11/10/2019 Sex and Gender Information Value Date Recorded Sex Assigned at Female 07/14/2022 9:10 PM CDT Gender Identity Female 07/14/2022 9:10 PM CDT Sexual Orientation Straight 07/14/2022 9: 10 PM CDT Last Filed Vital Signs Vital Sign Reading Time Taken Comments Blood Pressure 146/74 09/09/2022 1:55 PM CREDIT OPERATIONS SPECIALIST 9/1 5 Pulse 80 11/10/2019 8:37 AM CREDIT OPERATIONS SPECIALIST Temperature 36.7 ??C (98.1 ??F) 08/12/2018 8:08 AM CD T Respiratory Rate - - Oxygen Saturation - - Inhaled Oxygen Concentration - - Weight 74.8 kg (165 lb) 09/09/2022 1:55 PM CREDIT OPERATIONS SPECIALIST Height 167.6 cm (5' 6) 06/11/2021 3:11 PM CDT Body Mass Index 26.63 06/11/2021 3:11 PM CDT Plan of Treatment Not on file Medical Devices Implanted Type Area Digging Machine Operator Device Identifier Shelf Expiration Date [...] D2 and D3 (01/29/2024 9:45 AM CDT) [facility] 25-Hydroxy D2 <4.0 ng/mL 02/04/2024 3:02 PM CDT [facility] 25-Hydroxy D3 46 ng/mL 02/04/2024 3:02 PM CDT [facility] 25-Hydroxy D Total 46 ng/mL 2023 3:02 PM CDT [facility] Comment: ----REFERENCE VALUE---- 25-HYDROXY D TOTAL (D2+D3) Optimum levels in the healthy population are 20-50. ----ADDITIONAL INFORMATION---- This test was developed and its performance characteristics determined by [facility] in a manner consistent with CLIA requirements. This test has not been cleared or approved by the U.S. Food and Drug Administration. Blood (Blood, Venous) 01/29/2024 9:45 AM CDT 02/02/2024 8:43 AM CDT Narrative Resulting Agency Comment Mailed In Specimen Maximus Callejas M.D. LAB BLOOD ADD-ON [facility] [address] [place] [address] [facility] [address] [place] [address] [place] [address] * US Kidneys Bilateral with Bladder (01/12/2024 [...] CDT Maximus Callejas M.D. LAB BLOOD ADD-ON [facility] [address] [place] [address], [facility] [place] [facility] 200 [place] [address] * (ABNORMAL) CBC without Differential (01/12/2024 11:59 [...] M.D. LAB BLOOD ADD-ON Performing Organization Address [facility] de Phone Number [facility] 200 [place] [address], [facility] DTL [facility] 200 [place] [address] * Vitamin B12 Assay (01/12/2024 11:59 AM CDT) Pathologist [facility] Vitamin B12 Assay, S [phone] - [...] M.D. LAB BLOOD ADD-ON Performing Organization Address [facility] de Phone Number [facility] 200 [place] [address], [facility] DTL [facility] 200 [place] [address] * Basic Metabolic Panel (01/12/2024 11:59 AM [...] CDT Maximus Callejas M.D. LAB BLOOD ADD-ON [facility] [address] [place] [address], [place] [facility] [place] [facility] [address] [place] [address] from Last 3 Months or Most Recently Relevant to Health Maintenance Advance Directives For more information, please contact: [phone] Documents on File Type Date Recorded Patient Enamel Machine Operator Expl anation Advance Directives 03/31/2009 12:00 AM Leg acy document. See document viewer. Care Teams Installation Superintendent Relationship Specialty Start Date End Date Elsewhere, Pcp PCP - General Internal Medicine 09/04/22
--- OUTSIDE RECORDS SUMMARY | 2024-04-12 08:11 | XMS_ITS | Encounter Summary ---
Author Organization [facility] Address [address] [place] [address] Care Team Providers Care It Compliance Manager Name Role Phone Elsewhere, Pcp Primary Care Provider Unavailabl e Reason for Visit * Outpatient (Routine) - Closed Specialty Diagnoses / Procedures Referred By Rosa t Referred To Contact Nephrology and Hypertension Diagnoses Cyst Renal Nephrolithiasis Maximus Callejas M.D. 200 [place] [address] [facility] Referral ID Status Reason Start Date Expiration Date Visits Re quested Visits Authorized [id number] Closed 09/11/2022 09/10/2025 1 1 Encounter Details Date Type Department Care Team (Late st Contact Info) Description 01/13/2024 10:30 AM CDT Telemedicine Division of Nephrology and Hypertension in [place], [place] [address] [place] [phone] Maximus Callejas M.D. Cyst Renal; Nephrolithiasis Social History Tobacco Use Types Packs/Day Years Used Date Smoking Tobacco: Never Passive Smoke Exposure: Never Smokeless Tobacco: Never Alcohol Use Standard Drinks/Week Comments No 0 (1 standard drink = 0.6 oz pur e alcohol) [facility] Utilities Answer Date Recorded In [...] often do you attend chur ch or protestant services? Patient declined 07/14/2022 Do you belong to any clubs o r organizations such as yazidism groups, unions, fraternal or athletic groups, or [...] heating? Not hard at all 06/05/2021 [facility] of Occupat ional Health - [...] your living situation today? I have a [facility] place to live 01/07/2024 Education Answer Date Recorded What is the highest level of school you have completed or the highest degree you have received? Master's degree (e.g., MA, MS, Mikaela, MEd, STAGE SETTINGS PAINTER, CYRUS) 11/10/2019 Sex and Gender Information Value [...] would like to continue her affiliation with [employer], but remotely. Maximus Callejas M.D. Total time 55 minutes, moderate complexity documented in this encounter Plan of Treatment Not on file documented as of this encounter Visit Diagnoses Diagnosis Cyst Renal Nephrolithiasis documented in this encounter Care Teams It Compliance Manager Relationship Specialty Start Date End Date Elsewhere, Pcp PCP - General Internal Medicine 09/04/22 documented as of this encounter
--- OUTSIDE RECORDS SUMMARY | 2024-04-12 08:11 | XMS_ITS | Encounter Summary ---
Author Organization [facility] Address [address] [place] [address] Care Team Providers Care Senior Director Creative Services Name Role Phone Elsewhere, Pcp Primary Care Provider Unavailabl e Reason for Referral * Outpatient (Routine) - Authorized Specialty Diagnoses / Procedures Referred By Damionac t Referred To Contact Sleep Medicine Juwan Blackwood M.D. [address] [place] [address] [facility] Referral ID Status Reason Start Date Expiration Date V isits Requested Visits Authorized [id number] Authorized 01/13/2024 07/14/2025 1 1 Reason for Visit * Reason Comments Cpap Follow-up * Appointment Request (Routine) - Closed Specialty Diagnoses / Procedures Referred By Controny t Referred To Contact Sleep Medicine Referral ID Status Reason Start Date Expiration Date Visits Re quested Visits Authorized [id number] Closed 12/16/2023 12/15/2024 1 1 Encounter Details Date Type Department Care Team ([facility] st Contact Info) Description 01/13/2024 2:15 PM CDT Telemedicine [facility] in [place], [place] [address] [place] [phone] Amelia Jensen, R.N. Obstructive Sleep Apnea Adult (Primary Dx) Social History Tobacco Use Types Packs/Day Years Used Date Smoking Tobacco: Never Passive Smoke Exposure: Never Smokeless Tobacco: Never Alcohol Use Standard Drinks/Week Comments No 0 (1 standard drink = 0.6 oz pur e alcohol) [facility] Utilities Answer Date Recorded In [...] often do you attend chur ch or shinto services? Patient declined 07/14/2022 Do you belong to any clubs o r organizations such as yazdanism groups, unions, fraternal or athletic groups, or [...] and heating? Not hard at all 06/05/2021 [facility] of Occupat ional Health - Occupational Stress [...] your living situation today? I have a [facility] place to live 01/07/2024 Education Answer Date Recorded What is the highest level of school you have completed or the highest degree you have received? Master's degree (e.g., MA, MS, Mikaela, MEd, ROOF ASSEMBLER, CYRUS) 11/10/2019 Sex and Gender Information [...] audio/video technology by Amelia Jensen R.N. in [facility] to the patient in Patient's Home REASON [...] No Snort Arousals: No Morning Headaches: No [place] Score: 0 (01/07/24211 : Amelia Jensen, R.N.) [...] heated hose has been set atunknown. Vendor: [employer] in the [facility] (the patient could not specify where) VITAL SIGNS: ASSESSMENT / PLAN This return visit was reviewed in detail with Leon Holm M.D. who saw the patient face to face Updated plan of care and treatment recommendations provided as a result of today's visit include: 1. Continue PAP therapy at 5-15 cm H2O. Prescription was renewed by Leon Hlom M.D. The patient's prescription was written for a new machine as hers is seven years old. 2. I congratulated the patient on excellent use of PAP therapy. Her apnea is well controlled on PAP. 3. The patient noted that she saw Dr. Callejas in nephrology at [facility] today. He stated her labs showed her [...] Eduar Brown will continue to utilize the [employer] P10 interface for her. 6. adjunct faculty for medical terminology management of the sleep treatment plan was [...] Primary documented in this encounter Care Teams Senior Director Creative Services Relationship Specialty Start Date End Date Elsewhere, Pcp PCP - General Internal Medicine 09/04/22 documented as of this encounter
--- OUTSIDE RECORDS SUMMARY | 2024-04-12 08:11 | XMS_ITS | Encounter Summary ---
Author Organization [facility] Address [address] [place] [address] Care Team Providers Care Esl Teacher Name Role Phone Elsewhere, Pcp Primary Care Provider Unavailabl e Encounter Details Date Type Department Care Team (Late st Contact Info) Description 10/02/2023 CPAP Download Remote Patient Monitoring [facility] [address] [place] [address] [facility], Provider Social History Tobacco Use Types Packs/Day Years Used Date Smoking Tobacco: Never Smokeless Tobacco: Never Alcohol Use Standard Drinks/Week Comments No 0 (1 standard drink = 0.6 oz pur e alcohol) [facility] Utilities Answer Date Recorded In the past [...] often do you attend chur ch or christianity services? Patient declined 07/14/2022 Do you belong [...] and heating? Not hard at all 06/05/2021 [facility] of Occupat ional Health - [...] your living situation today? I have a [facility] place to live 01/07/2024 Education Answer Date Recorded What is the highest level of school you have completed or the highest degree you have received? Master's degree (e.g., MA, MS, Mikaela, MEd, HAZARDOUS MATERIALS WASTE TECHNICIAN, CYRUS) 11/10/2019 Sex and Gender Information Value Date Recorded Sex Assigned at Female 07/14/2022 9:10 PM CDT Gender Identity Female 07/14/2022 9:10 PM CDT Sexual Orientation Straight 07/14/2022 9: 10 PM CDT documented as of this encounter Plan of Treatment Not on file documented as of this encounter Visit Diagnoses Not on filedocumented in this encounter Care Teams Esl Teacher Relationship Specialty Start Date End Date Elsewhere, Pcp PCP - General Internal Medicine 09/04/22 documented as of this encounter
--- OUTSIDE RECORDS SUMMARY | 2024-04-12 08:11 | XMS_ITS | Encounter Summary ---
Author Organization [facility] Address [address] [place] [address] Care Team Providers Care Painter Drum Name Role Phone Elsewhere, Pcp Primary Care Provider Unavailabl e Reason for Referral * Outpatient (Routine) - Closed Specialty Diagnoses / Procedures Referred By Rosa panda Referred To Contact Diagnoses Cyst Renal Nephrolithiasis Procedures US Kidneys Bilateral with Bladder Maximus Callejas M.D. 200 [place] [address] [facility] Referral ID Status Reason Start Date Expiration Date Visits Re quested Visits Authorized [id number] Closed 09/11/2022 09/11/2023 1 1 Reason for Visit * Outpatient (Routine) - Closed Specialty Diagnoses / Procedures Referred By Rosa panda Referred To Contact Diagnoses Cyst Renal Nephrolithiasis Procedures US Kidneys Bilateral with Bladder Maximus Callejas M.D. 200 [place] [address] [facility] Referral ID Status Reason Start Date Expiration Date Visits Re quested Visits Authorized [id number] Closed 09/11/2022 09/11/2023 1 1 Encounter Details Date Type Department Care Team (Latest Contact Info) Description 01/12/2024 12:09 PM CDT - 01/12/2024 11:59 PM CDT Hospital Encounter Department of Radiology, [facility], in [place], [place] [address] [place] [phone] Maximus Callejas M.D. Cyst Renal; Nephrolithiasis Discharge [...] In the past 12 months has e [employer], gas, oil, or water company threatened to [...] How often do you attend chur or sabianism services? Patient declined 07/14/2022 Do [...] and heating? Not hard at all 06/05/2021 [facility] of Occupat ional Health - Occupational Stress [...] your living situation today? I have a [facility] place to live 01/07/2024 Education Answer Date Recorded What is the highest level of school you have completed or the highest degree you have received? Master's degree (e.g., MA, MS, Mikaela, MEd, X RAY EXAMINER OF AIRCRAFT, CYRUS) 11/10/2019 Sex and Gender Information Value [...] DME Order 1 each 07/18/2022 01/13/2024 vitamins A,C,B-ioes-apnnda (PRESERVISION AREDS) 7,160 Units-113 mg-100 Units per [...] Nephrolithiasis documented in this encounter Care Teams Painter Drum Relationship Specialty Start Date End Date Elsewhere, Pcp PCP - General Internal Medicine 09/04/22 documented as of this encounter
--- OUTSIDE RECORDS SUMMARY | 2024-04-12 08:11 | XMS_ITS | Encounter Summary ---
Author Organization [facility] Address [address] [place] [address] Care Team Providers Care Gut Cleaner Name Role Phone Elsewhere, Pcp Primary Care Provider Unavailabl e Encounter Details Date Type Department Care Team (Late st Contact Info) Description 04/05/2024 CPAP Download Remote Patient Monitoring [facility] [address] [place] [address] [facility], Provider Social History Tobacco Use Types Packs/Day Years Used Date Smoking Tobacco: Never Passive Smoke Exposure: Never Smokeless Tobacco: Never Alcohol Use Standard Drinks/Week Comments No 0 (1 standard drink = 0.6 oz pur e alcohol) [facility] Utilities Answer Date Recorded In the past 12 months has [employer], gas, oil, or water company threatened to [...] often do you attend chur ch or episcopal services? Patient declined 07/14/2022 Do you belong [...] and heating? Not hard at all 06/05/2021 [facility] of Occupat ional Health - Occupational Stress [...] Master's degree (e.g., MA, MS, Mikaela, MEd, URBAN REDEVELOPMENT SPECIALIST, CYRUS) 11/10/2019 Sex and Gender Information Value Date Recorded Sex Assigned at Female 07/14/2022 9:10 PM CDT Gender Identity Female 07/14/2022 9:10 PM CDT Sexual Orientation Straight 07/14/2022 9: 10 PM CDT documented as of this encounter Plan of Treatment Not on file documented as of this encounter Visit Diagnoses Not on filedocumented in this encounter Care Teams Gut Cleaner Relationship Specialty Start Date End Date Elsewhere, Pcp PCP - General Internal Medicine 09/04/22 documented as of this encounter
--- OUTSIDE RECORDS SUMMARY | 2024-04-12 08:11 | XMS_ITS | Encounter Summary ---
Author Organization [facility] Address [address] [place] [address] Care Team Providers Care Marketing Operations Associate Name Role Phone Elsewhere, Pcp Primary Care Provider Unavailabl e Encounter Details Date Type Department Care Team (Late st Contact Info) Description 01/13/2024 2:30 PM CDT Office Visit [facility] in [place], [place] [address] [place] [address] Mayur Holm M.D. [address] [place] [address] Apnea Sleep Obstructive (Primary Dx) Social History Tobacco Use Types Packs/Day Years Used Date Smoking Tobacco: Never Passive Smoke Exposure: Never Smokeless Tobacco: Never Alcohol Use Standard Drinks/Week Comments No 0 (1 standard drink = 0.6 oz pur e alcohol) [facility] Utilities Answer Date Recorded In the past 12 months has [employer], gas, oil, or water company threatened [...] any clubs o r organizations such as roman catholic groups, unions, fraternal or athletic groups, or [...] and heating? Not hard at all 06/05/2021 [facility] of Occupat ional [facility] - Occupational Stress Questionnaire Answer Date Recorded [...] your living situation today? I have a [facility] place to live 01/07/2024 Education Answer Date Recorded What is the highest level of school you have completed or the highest degree you have received? Master's degree (e.g., MA, MS, Miakela, MEd, COOPERATIVE EDUCATION COORDINATOR, CYRUS) 11/10/2019 Sex and Gender Information Value [...] Sorenson RN. I met with Ms. Brown [id number] via our video teleconference software. Review of [...] Primary documented in this encounter Care Teams Marketing Operations Associate Relationship Specialty Start Date End Date Elsewhere, Pcp PCP - General Internal Medicine 09/04/22 documented as of this encounter
--- OUTSIDE RECORDS SUMMARY | 2024-04-12 08:11 | XMS_ITS | Encounter Summary ---
Author Organization [facility] Address [address] [place] [address] Care Team Providers Care Wind Tunnel Technician Name Role Phone Elsewhere, Pcp Primary Care Provider Unavailabl e Encounter Details Date Type Department Care Team (Late st Contact Info) Description 03/05/2024 CPAP Download Remote Patient Monitoring [facility] [address] [place] [address] [facility], Provider Social History Tobacco Use Types Packs/Day Years Used Date Smoking Tobacco: Never Passive Smoke Exposure: Never Smokeless Tobacco: Never Alcohol Use Standard Drinks/Week Comments No 0 (1 standard drink = 0.6 oz pur e alcohol) [facility] Utilities Answer Date Recorded In the past 12 months has [employer], gas, oil, or water company threatened to [...] often do you attend chur ch or oriental orthodox services? Patient declined 07/14/2022 Do you belong to any clubs o r organizations such as bahai groups, unions, fraternal or athletic groups, or [...] and heating? Not hard at all 06/05/2021 [facility] [place] of Occupat ional Health - Occupational Stress [...] Master's degree (e.g., MA, MS, Mikaela, MEd, OUTSIDE UPHOLSTERER, CYRUS) 11/10/2019 Sex and Gender Information Value Date Recorded Sex Assigned at Female 07/14/2022 9:10 PM CDT Gender Identity Female 07/14/2022 9:10 PM CDT Sexual Orientation Straight 07/14/2022 9: 10 PM CDT documented as of this encounter Plan of Treatment Not on file documented as of this encounter Visit Diagnoses Not on filedocumented in this encounter Care Teams Wind Tunnel Technician Relationship Specialty Start Date End Date Elsewhere, Pcp PCP - General Internal Medicine 09/04/22 documented as of this encounter
--- OUTSIDE RECORDS SUMMARY | 2024-04-12 08:11 | XMS_ITS | Encounter Summary ---
Author Organization [facility] Address [address] [place] [address] Care Team Providers Care Cognos Report Developer Name Role Phone Elsewhere, Pcp Primary Care Provider Unavailabl e Encounter Details Date Type Department Care Team (Late st Contact Info) Description 02/03/2024 CPAP Download Remote Patient Monitoring [facility] [address] [place] [address] [facility], Provider Social History Tobacco Use Types Packs/Day Years Used Date Smoking Tobacco: Never Passive Smoke Exposure: Never Smokeless Tobacco: Never Alcohol Use Standard Drinks/Week Comments No 0 (1 standard drink = 0.6 oz pur e alcohol) [facility] Utilities Answer Date Recorded In the past 12 months has [employer], gas, oil, or water company threatened to [...] often do you attend chur ch or faith services? Patient declined 07/14/2022 Do you belong to any clubs o r organizations such as hoahaoism groups, unions, fraternal or athletic groups, or [...] and heating? Not hard at all 06/05/2021 [facility] of Occupat ional Health - Occupational Stress [...] Master's degree (e.g., MA, MS, Mikaela, MEd, CLERGY MEMBER, CYRUS) 11/10/2019 Sex and Gender Information Value Date Recorded Sex Assigned at Female 07/14/2022 9:10 PM CDT Gender Identity Female 07/14/2022 9:10 PM CDT Sexual Orientation Straight 07/14/2022 9: 10 PM CDT documented as of this encounter Plan of Treatment Not on file documented as of this encounter Visit Diagnoses Not on filedocumented in this encounter Care Teams Cognos Report Developer Relationship Specialty Start Date End Date Elsewhere, Pcp PCP - General Internal Medicine 09/04/22 documented as of this encounter
--- OUTSIDE RECORDS SUMMARY | 2024-04-12 08:12 | XMS_ITS | Encounter Summary ---
Author Organization [facility] Address [address] [place] [address] Care Team Providers Care Airplane Rental Clerk Name Role Phone Lien Hernadez MD Primary Care Provider + Encounter Details Date Type Department Care Team (Late st Contact Info) Description 02/25/2024 Order-Scan [address] [address] Reported, Patient Social History Tobacco [...] on filedocumented in this encounter Care Teams Airplane Rental Clerk Relationship Specialty Start Date End Date Lien Hernadez MD [facility] [address] PCP - General Family Medicine 03/16/20 documented as of this encounter
--- OUTSIDE RECORDS SUMMARY | 2024-04-12 08:12 | XMS_ITS | Clinical Summary ---
Author Organization [facility] Address [address] [place] [address] Care Team Providers Care Wash Worker Name Role Phone Sal Arcos MD Primary [...] for each transition of care or referral. [facility] Allergies Active Allergy Reactions Criticality Noted Date [...] 83.9 kg (185 lb) 10/27/2014 11:23 AM CLASSROOM AIDE Height 168.9 cm (5' 6.5) 10/27/2014 11:23 AM CS T Body Mass Index 29.41 10/27/2014 11:23 AM CLASSROOM AIDE Plan of Treatment Health Maintenance Due Date [...] age to complete this topic Care Teams Wash Worker Relationship Specialty Start Date End Date Sal Arcos MD PCP - General 10/07/14
--- OUTSIDE RECORDS SUMMARY | 2024-04-12 08:12 | XMS_ITS | Encounter Summary ---
Author Organization [facility] Address [address] [place] [address] Care Team Providers Care Anthropology Lecturer Name Role Phone Lien Hernadez MD Primary Care Provider + Reason for Visit * Reason Comments Lab draw Encounter Details Date Type Department Care Team (Late st Contact Info) Description 01/29/2024 9:40 AM CDT [address] [facility] [address] [place] [phone] Social History Tobacco Use Types Packs/Day Years [...] on filedocumented in this encounter Care Teams Anthropology Lecturer Relationship Specialty Start Date End Date Lien Hernadez MD [address] [address] PCP - General Family Medicine 03/16/20 documented as of this encounter
--- OUTSIDE RECORDS SUMMARY | 2024-04-12 08:12 | XMS_ITS | Encounter Summary ---
Author Organization [facility] Address [address] [place] [address] Care Team Providers Care Certified Welding Inspector Name Role Phone Lien Hernadez MD Primary [...] on filedocumented in this encounter Care Teams Certified Welding Inspector Relationship Specialty Start Date End Date Lien Hernadez MD [address] [address] PCP - General Family Medicine 03/16/20 documented as of this encounter
--- OUTSIDE RECORDS SUMMARY | 2024-04-12 08:12 | XMS_ITS | Encounter Summary ---
Author Organization [facility] Address [address] [place] [address] Care Team Providers Care Social Sciences Lecturer Name Role Phone Lien Hernadez MD Primary Care Provider + Reason for Visit * Reason Onset Date Comments Blood in urine 06/20/2020 Blood in urine a nd lower back pain Encounter Details Date Type Department Care Team (Late st Contact Info) Description 06/20/2020 Nurse Triage [facility] [address] [place] [phone] Lien Hernadez MD [address] [phone] Social History Tobacco Use Types Packs/Day Years [...] had blood in urine since this morning. [facility] Urgent office visit-transferred to [facility] to make the appointment Nguyễn Rey RN Care ship liner Reason for Disposition ??? Blood in urine (Exception: could be normal menstrual bleeding) Answer Assessment - Initial Assessment Questions 1. COLOR of URINE: Describe the color of the urine. (e.g., tea-colored, pink, red, blood clots, bloody) [place] colored 2. ONSET: When did the bleeding [...] CDT Patient Phone Message (General) Callback Number: [phone] Ok to leave a detailed message on voicemail? yes Who are you trying to reach?: Triage nurse Message: Patient stated that she has blood in her urine and that this started earlier today. She also stated that she has some lower back pain and that she has a 17 cm kidney cyst. Requested Action: Please advise. Kimberly Quintero Care Access (CLOTH SANDER) Department documented in this encounter Plan of Treatment Not on file documented as of this encounter Visit Diagnoses Not on filedocumented in this encounter Care Teams Social Sciences Lecturer Relationship Specialty Start Date End Date Lien Hernadez MD [address] [address] PCP - General Family Medicine 03/16/20 documented as of this encounter
== END 2024-04-12 08:08 | disposition home or self-care (01) ==
LOC: NFLDREF 08:08
PROVIDERS: PCP Internal Medicine; Visit Provider Internal Medicine
DX: E04.1 Nontoxic single thyroid nodule (principal)
CPT/HCPCS: 84443

== ENCOUNTER 2024-04-22 12:57 | Outpatient (CLI) | payer MEDICARE, BC, SELFPAY ==
--- OUTSIDE RECORDS SUMMARY | 2024-04-22 12:59 | XMS_ITS | Encounter Summary ---
Author Organization [facility] Address [address] [place] [address] Care Team Providers Care Photographic Equipment Inspector Name Role Phone Elsewhere, Pcp Primary Care Provider Unavailabl e Encounter Details Date Type Department Care Team (Late st Contact Info) Description 01/13/2024 2:30 PM CDT [facility] [place], [place] [address] [place] [address] Mayur Holm M.D. [address] [place] [address] Apnea Sleep Obstructive (Primary Dx) Social History Tobacco Use Types Packs/Day Years Used Date Smoking Tobacco: Never Passive Smoke Exposure: Never Smokeless Tobacco: Never Alcohol Use Standard Drinks/Week Comments No 0 (1 standard drink = 0.6 oz pur e alcohol) [facility] Utilities Answer Date Recorded In the past 12 months has [employer], gas, oil, or water company threatened [...] often do you attend chur ch or advent services? Patient declined 07/14/2022 Do you belong to any clubs o r organizations such as protestant groups, unions, fraternal or athletic groups, or [...] 06/05/2021 [facility] of Occupat ional [facility] - Occupational Stress Questionnaire Answer Date Recorded [...] your living situation today? I have a [facility] place to live 01/07/2024 Education Answer Date Recorded What is the highest level of school you have completed or the highest degree you have received? Master's degree (e.g., MA, MS, Mikaela, MEd, SENIOR JAVA DATA ARCHITECT, CYRUS) 11/10/2019 Sex and Gender Information [...] Sorenson RN. I met with Ms. Brown [id number] via our video teleconference software. Review of [...] Primary documented in this encounter Care Teams Photographic Equipment Inspector Relationship Specialty Start Date End Date Elsewhere, Pcp PCP - General Internal Medicine 09/04/22 documented as of this encounter
--- OUTSIDE RECORDS SUMMARY | 2024-04-22 12:59 | XMS_ITS | Encounter Summary ---
Author Organization [facility] Address [address] [place] [address] Care Team Providers Care Bacon Skinner Name Role Phone Elsewhere, Pcp Primary Care Provider Unavailabl e Encounter Details Date Type Department Care Team (Late st Contact Info) Description 03/05/2024 CPAP Download Remote Patient Monitoring [facility] [address] [place] [address] [facility], Provider Social History Tobacco Use Types Packs/Day Years Used Date Smoking Tobacco: Never Passive Smoke Exposure: Never Smokeless Tobacco: Never Alcohol Use Standard Drinks/Week Comments No 0 (1 standard drink = 0.6 oz pur e alcohol) [facility] Utilities Answer Date Recorded In the past 12 months has [employer], gas, oil, or water company threatened to [...] often do you attend chur ch or restorationism services? Patient declined 07/14/2022 Do you belong to any clubs o r organizations such as adventism groups, unions, fraternal or athletic groups, or [...] and heating? Not hard at all 06/05/2021 [facility] [place] of Occupat ional Health - Occupational Stress [...] Master's degree (e.g., MA, MS, Mikaela, MEd, CREDIT VERIFIER, CYRUS) 11/10/2019 Sex and Gender Information Value Date Recorded Sex Assigned at Female 07/14/2022 9:10 PM CDT Gender Identity Female 07/14/2022 9:10 PM CDT Sexual Orientation Straight 07/14/2022 9: 10 PM CDT documented as of this encounter Plan of Treatment Not on file documented as of this encounter Visit Diagnoses Not on filedocumented in this encounter Care Teams Bacon Skinner Relationship Specialty Start Date End Date Elsewhere, Pcp PCP - General Internal Medicine 09/04/22 documented as of this encounter
--- OUTSIDE RECORDS SUMMARY | 2024-04-22 12:59 | XMS_ITS | Encounter Summary ---
Author Organization [facility] Address [address] [place] [address] Care Team Providers Care Snow Blower Name Role Phone Elsewhere, Pcp Primary Care Provider Unavailabl e Reason for Referral * Outpatient (Routine) - Authorized Specialty Diagnoses / Procedures Referred By Rosa panda Referred To Contact Diagnoses Cyst Renal Procedures US Kidneys Bilateral with Bladder Maximus Callejas M.D. [address] [place] [address] [facility] Referral ID Status Reason Start Date Expiration Date V isits Requested Visits Authorized [id number] Authorized 01/13/2024 01/12/2025 1 1 * Outpatient (Routine) - Authorized Specialty Diagnoses / Procedures Referred By Rosa t Referred To Contact Nephrology and Hypertension Diagnoses Cyst Renal Maximus Callejas M.D. [address] [place] [address] [facility] Referral ID Status Reason Start Date Expiration Date V isits Requested Visits Authorized [id number] Authorized 01/13/2024 07/14/2025 1 1 Scheduling Instructions Transfer care to a Rag Cutting Machine Tender in the cystic disease subgroup. Reason for Visit * Reason Comments Follow-up Orders Future visit Encounter Details Date Type Department Care Team (Latest Contact Info) Description 01/13/2024 Clinical Communication Division of Nephrology and Hypertension in [place], [place] [address] [place] [address] Maximus Callejas M.D. Follow-up Orders (Future visit) Social History Tobacco Use Types Packs/Day Years Used Date Smoking Tobacco: Never Passive Smoke Exposure: Never Smokeless Tobacco: Never Alcohol Use Standard Drinks/Week Comments No 0 (1 standard drink = 0.6 oz pur e alcohol) [facility] Utilities Answer Date Recorded In the past 12 months has th e [employer], gas, oil, or water [employer] threatened to shut off services in your [...] week 07/14/2022 How often do you attend [facility] or caodaism services? Patient declined 07/14/2022 Do you belong to any clubs o r organizations such as yazidi groups, unions, fraternal or athletic groups, or [...] at all 06/05/2021 [facility] [place] of Occupat ional Health - Occupational Stress [...] your living situation today? I have a [facility] place to live 01/07/2024 Education Answer Date Recorded What is the highest level of school you have completed or the highest degree you have received? Master's degree (e.g., MA, MS, Mikaela, MEd, ORDER ENTRY, CYRUS) 11/10/2019 Sex and Gender Information Value [...] Mixed documented in this encounter Care Teams Snow Blower Relationship Specialty Start Date End Date Elsewhere, Pcp PCP - General Internal Medicine 09/04/22 documented as of this encounter
--- OUTSIDE RECORDS SUMMARY | 2024-04-22 12:59 | XMS_ITS | Encounter Summary ---
Author Organization [facility] Address [address] [place] [address] Care Team Providers Care Ornament Stapler Name Role Phone Elsewhere, Pcp Primary Care Provider Unavailabl e Encounter Details Date Type Department Care Team (Latest Contact Info) Description 01/27/2024 10:20 AM CDT - 01/27/2024 11:59 PM CDT Hospital Encounter Department of Laboratory Medicine and Pathology, [facility], in [place], [place] [address] [place] [address] Maximus Callejas M.D. Deficiency Vitamin D Discharge [...] Recorded In the past 12 months has [employer], gas, oil, or water company threatened [...] week 07/14/2022 How often do you attend [facility] or yazidi services? Patient declined 07/14/2022 Do you belong to any clubs o r organizations such as mosque groups, unions, fraternal or athletic groups, or [...] and heating? Not hard at all 06/05/2021 [facility] [place] of Occupat ional Health - Occupational Stress [...] your living situation today? I have a [facility] place to live 01/07/2024 Education Answer Date Recorded What is the highest level of school you have completed or the highest degree you have received? Master's degree (e.g., MA, MS, Mikaela, MEd, HELP DESK SUPERVISOR, CYRUS) 11/10/2019 Sex and Gender Information Value [...] developed and its performance characteristics determined by [facility] in a manner consistent with CLIA requirements. This test has not been cleared or approved by the U.S. Food and Drug Administration. Blood (Blood, Venous) 01/29/2024 9:45 AM CDT 02/02/2024 8:43 AM CDT Narrative Resulting Agency Comment Mailed In Specimen Maximus Callejas M.D. LAB BLOOD ADD-ON [facility] [address] [place] [address] [facility] [address] [place] [address] [place] [address] documented in this encounter Visit Diagnoses Diagnosis Deficiency Vitamin D documented in this encounter Care Teams Ornament Stapler Relationship Specialty Start Date End Date Elsewhere, Pcp PCP - General Internal Medicine 09/04/22 documented as of this encounter
--- OUTSIDE RECORDS SUMMARY | 2024-04-22 12:59 | XMS_ITS ---
Author Organization [facility] Address [address] [place] [address] Care Team Providers Care Shaker Washer Name Role Phone Unavailable Unavailable Unavailable Surgery Details Not on file Complications Check Surgery Details section. Procedure Estimated Blood Loss Check Surgery Details section. Procedure Findings Check Surgery Details section. Procedure Specimens Taken Check Surgery Details section.
--- OUTSIDE RECORDS SUMMARY | 2024-04-22 12:59 | XMS_ITS | Encounter Summary ---
Author Organization [facility] Address [address] [place] [address] Care Team Providers Care Founding Partner Name Role Phone Elsewhere, Pcp Primary Care Provider Unavailabl e Encounter Details Date Type Department Care Team (Late st Contact Info) Description 04/05/2024 CPAP Download Remote Patient Monitoring [facility] [address] [place] [address] [facility], Provider Social History Tobacco Use Types Packs/Day Years Used Date Smoking Tobacco: Never Passive Smoke Exposure: Never Smokeless Tobacco: Never Alcohol Use Standard Drinks/Week Comments No 0 (1 standard drink = 0.6 oz pur e alcohol) [facility] Utilities Answer Date Recorded In the past 12 months has [employer], gas, oil, or water company threatened to [...] any clubs o r organizations such as buddhist groups, unions, fraternal or athletic groups, or [...] and heating? Not hard at all 06/05/2021 [facility] [place] of Occupat ional Health - Occupational Stress [...] Master's degree (e.g., MA, MS, Mikaela, MEd, CORE FILER, CYRUS) 11/10/2019 Sex and Gender Information Value Date Recorded Sex Assigned at Female 07/14/2022 9:10 PM CDT Gender Identity Female 07/14/2022 9:10 PM CDT Sexual Orientation Straight 07/14/2022 9: 10 PM CDT documented as of this encounter Plan of Treatment Not on file documented as of this encounter Visit Diagnoses Not on filedocumented in this encounter Care Teams Founding Partner Relationship Specialty Start Date End Date Elsewhere, Pcp PCP - General Internal Medicine 09/04/22 documented as of this encounter
--- OUTSIDE RECORDS SUMMARY | 2024-04-22 12:59 | XMS_ITS | Clinical Summary ---
Author Organization [facility] Address [address] [place] [address] Care Team Providers Care Blade Boner Name Role Phone Elsewhere, Pcp Primary Care Provider Unavailabl e Source Comments Patient records contain information from all sites at [facility]. For routine questions regarding patient records, call [phone] during business hours, M-F 8:00 AM - 5:00 PM Central Time. Record requests for emergency care only can be directed to [phone] at any time.[facility] Allergies Active Allergy Reactions Criticality Noted [...] Download Remote Patient Monitoring [facility] [address] [place] [address] [facility], Provider 03/05/2024 CPAP Download Remote Patient Monitoring [facility] [address] [place] [address] [facility], Provider 02/03/2024 CPAP Download Remote Patient Monitoring [facility] [address] [place] [address] [facility], Provider 01/27/2024 10:20 AM CDT - 01/27/2024 11:59 PM CDT Hospital Encounter Department of Laboratory Medicine and Pathology, [facility], in [place], [place] [address] [place] [phone] Maximus Callejas M.D. Deficiency Vitamin D Discharge Disposition: Home or Self Care from [...] Celso Parikhnbrian Transient ischemic attack Father Celso Parikhnbrian Tuberculosis Father's Brother Rubens Alcohol abuse Maternal Grandfather Alois Diabetes Maternal Grandfather Alois Osteoporosis Maternal Grandmother Flower Other cancer Mother Connie Brown Stomach c ancer Rectal cancer Paternal Grandfather Randall Brown Arthritis Paternal Grandmother Sailaja Breast cancer Sister Almtegan Migraines Sister Almtegan Relation Name Status Comments Father Celso Parikhnbrian Father's Brother Rubens Maternal Grandfather Alois Maternal Grandmother Flower Mother Connie Brown Paternal Grandfather Randall Brown Paternal Grandmother Sailaja Sister Tommy Social History Tobacco Use Types Packs/Day Years Used Date Smoking Tobacco: Never Passive Smoke Exposure: Never Smokeless Tobacco: Never Tobacco Cessation:Counseling Given: Not Answered Alcohol Use Standard Drinks/Week Comments No 0 (1 standard drink = 0.6 oz pur e alcohol) [facility] Utilities Answer Date Recorded In the past 12 months has [employer], gas, oil, or water [employer] threatened to shut off services in your [...] week 07/14/2022 How often do you attend [facility] or episcopal services? Patient declined 07/14/2022 Do you belong to any clubs o r organizations such as sikh groups, unions, fraternal or athletic groups, or [...] and heating? Not hard at all 06/05/2021 [facility] of Occupat ional Health - Occupational [...] your living situation today? I have a [facility] place to live 01/07/2024 Education Answer Date Recorded What is the highest level of school you have completed or the highest degree you have received? Master's degree (e.g., MA, MS, Mikaela, MEd, ALGORITHM DESIGN ENGINEER, CYRUS) 11/10/2019 Sex and Gender Information Value Date Recorded Sex Assigned at Female 07/14/2022 9:10 PM CDT Gender Identity Female 07/14/2022 9:10 PM CDT Sexual Orientation Straight 07/14/2022 9: 10 PM CDT Last Filed Vital Signs Vital Sign Reading Time Taken Comments Blood Pressure 146/74 09/09/2022 1:55 PM MOBILE APPLICATION ARCHITECT 9/1 5 Pulse 80 11/10/2019 8:37 AM MOBILE APPLICATION ARCHITECT Temperature 36.7 ??C (98.1 ??F) 08/12/2018 8:08 AM CD T Respiratory Rate - - Oxygen Saturation - - Inhaled Oxygen Concentration - - Weight 74.8 kg (165 lb) 09/09/2022 1:55 PM MOBILE APPLICATION ARCHITECT Height 167.6 cm (5' 6) 06/11/2021 3:11 [...] 04/08/2024 04/08/2023, 03/14, 04/05/2022, Additional history exists Influenza Vaccine (#1) 2024 , 07/24/2022, 07/23/2022, Additional history exists Fasting Glucose for Diabetes Screening 01/11/2027 01/12/2024, 09/02/2022, 11/09/2019, Additional history exists DTaP,Tdap,and Td Vaccines (4 - Td or Tdap) 06/04/2031 06/04/2021, 01/30/2015, 09/30/2008, Additional history exists Hepatitis B Vaccines Completed 11/13/2000, 11/13/2000, 06/13/2000, Additional history exists Pneumococcal vaccine (65+ years) Completed 11/13/19 17, 05/30/2014 Zoster Vaccines Completed 12/06/2021, 09/12, 04/08/2013 Bone Density Scan (Osteoporo sis Screen) Discontinued 09/02/2022 COVID-19 Vaccine Completed 12/25/2023, 01/2023, 02/06/2023, Additional history exists Medical Devices Implanted Type Area Privacy Director Device Identifier Shelf Expiration Date Model / [...] 01/29/2024 9:45 AM CDT Deficiency Vitamin D BASIC METABOLIC PANEL, S/P Routine 01/12/2024 11:59 [...] performance characteristics determined by [facility] in a manner consistent with CLIA requirements. This test has not been cleared or approved by the U.S. Food and Drug Administration. Blood (Blood, Venous) 01/29/2024 9:45 AM CDT 02/02/2024 8:43 AM CDT Narrative Resulting Agency Comment Mailed In Specimen Maximus Callejas M.D. LAB BLOOD ADD-ON Performing Organization Address City/State/[facility] Co de Phone Number [facility] [address] [place] [address] [facility] [address] [place] [address] [place] [address] * Basic Metabolic Panel (01/12/2024 11:59 AM [...] CDT Maximus Callejas M.D. LAB BLOOD ADD-ON [facility] [address] [place] [address], [place] DTL [facility] [address] [place] [address] from Last 3 Months or Most Recently Relevant to Health Maintenance Advance Directives For more information, please contact: [phone] Documents on File Type Date Recorded Patient Radio Despatcher Expl anation Advance Directives 03/31/2009 12:00 AM Leg acy document. See document viewer. Care Teams Blade Boner Relationship Specialty Start Date End Date Elsewhere, Pcp PCP - General Internal Medicine 09/04/22
--- OUTSIDE RECORDS SUMMARY | 2024-04-22 12:59 | XMS_ITS | Encounter Summary ---
Author Organization [facility] Address [address] [place] [address] Care Team Providers Care Front Desk Representative Name Role Phone Elsewhere, Pcp Primary Care Provider Unavailabl e Encounter Details Date Type Department Care Team (Late st Contact Info) Description 02/03/2024 CPAP Download Remote Patient Monitoring [facility] [address] [place] [address] [facility], Provider Social History Tobacco Use Types Packs/Day Years Used Date Smoking Tobacco: Never Passive Smoke Exposure: Never Smokeless Tobacco: Never Alcohol Use Standard Drinks/Week Comments No 0 (1 standard drink = 0.6 oz pur e alcohol) [facility] Utilities Answer Date Recorded In the past 12 months has [employer], gas, oil, or water company threatened to [...] often do you attend chur ch or church services? Patient declined 07/14/2022 Do you belong [...] and heating? Not hard at all 06/05/2021 [facility] [place] of Occupat ional Health - Occupational Stress [...] Master's degree (e.g., MA, MS, Mikaela, MEd, TACTICAL INTELLIGENCE OFFICER, CYRUS) 11/10/2019 Sex and Gender Information Value Date Recorded Sex Assigned at Female 07/14/2022 9:10 PM CDT Gender Identity Female 07/14/2022 9:10 PM CDT Sexual Orientation Straight 07/14/2022 9: 10 PM CDT documented as of this encounter Plan of Treatment Not on file documented as of this encounter Visit Diagnoses Not on filedocumented in this encounter Care Teams Front Desk Representative Relationship Specialty Start Date End Date Elsewhere, Pcp PCP - General Internal Medicine 09/04/22 documented as of this encounter
--- OUTSIDE RECORDS SUMMARY | 2024-04-22 12:59 | XMS_ITS | Referral Summary ---
Author Organization [facility] Address [address] [place] [address] Care Team Providers Care Artificial Inseminator Name Role Phone Elsewhere, Pcp Primary Care Provider Unavailabl e Source Comments Patient records contain information from all sites at [facility]. For routine questions regarding patient records, call [phone] during business hours, M-F 8:00 AM - 5:00 PM Central Time. Record requests for emergency care only can be directed to [phone] at any time.[facility] Encounters Date Type Department Care Team Description 04/05/2024 CPAP Download Remote Patient Monitoring [facility] [address] [place] [address] [facility], Provider 03/05/2024 CPAP Download Remote Patient Monitoring [facility] [address] [place] [address] [facility], Provider 02/03/2024 CPAP Download Remote Patient Monitoring [facility] [address] [place] [address] [facility], Provider 01/27/2024 10:20 AM CDT - 01/27/2024 11:59 PM CDT Hospital Encounter Department of Laboratory Medicine and Pathology, [facility], in [place], [place] [address] [place] [phone] Maximus Callejas M.D. Deficiency Vitamin D Discharge [...] 0.6 oz pur e alcohol) [facility] Utilities Answer Date Recorded In the past [...] heating? Not hard at all 06/05/2021 [facility] [place] of Occupat ional Health - Occupational Stress [...] living situation today? I have a [facility] place to live 01/07/2024 Education Answer Date Recorded What is the highest level of school you have completed or the highest degree you have received? Master's degree (e.g., MA, MS, Mikaela, MEd, SPLUNK DASHBOARD DEVELOPER, CYRUS) 11/10/2019 Sex and Gender Information Value Date Recorded Sex Assigned at Female 07/14/2022 9:10 PM CDT Gender Identity Female 07/14/2022 9:10 PM CDT Sexual Orientation Straight 07/14/2022 9: 10 PM CDT Last Filed Vital Signs Vital Sign Reading Time Taken Comments Blood Pressure 146/74 09/09/2022 1:55 PM CSR TECHNICIAN 06/13 5 Pulse 80 11/10/2019 8:37 AM CSR TECHNICIAN Temperature 36.7 ??C (98.1 ??F) 08/12/2018 8:08 AM CD T Respiratory Rate - - Oxygen Saturation - - Inhaled Oxygen Concentration - - Weight 74.8 kg (165 lb) 09/09/2022 1:55 PM CSR TECHNICIAN Height 167.6 cm (5' 6) 06/11/2021 3:11 PM CDT Body Mass Index 26.63 06/11/2021 3:11 PM CDT Plan of Treatment Not on file Medical Devices Implanted Type Area Booster Assembler Device Identifier Shelf Expiration Date Model / Serial / Lot Mesh Marlex 6 X 6 - Mack [id number] Implanted:Qty: 1 on 03/31/2009 Mesh or Patch Other/Legacy - See Implant Description Description:Device Manufactu [facility] - Medix. Device Status Text - [id number]. [...] D2 and D3 (01/29/2024 9:45 AM CDT) [facility] 25-Hydroxy D2 <4.0 ng/mL 02/04/2024 3:02 PM CDT [facility] 25-Hydroxy D3 46 ng/mL 02/04/2024 3:02 PM CDT [facility] 25-Hydroxy D Total 46 ng/mL 2023 3:02 PM CDT [facility] Comment: ----REFERENCE VALUE---- 25-HYDROXY D TOTAL (D2+D3) Optimum levels in the healthy population are 20-50. ----ADDITIONAL INFORMATION---- This test was developed and its performance characteristics determined by [facility] in a manner consistent with CLIA requirements. This test has not been cleared or approved by the U.S. Food and Drug Administration. Blood (Blood, Venous) 01/29/2024 9:45 AM CDT 02/02/2024 8:43 AM CDT Narrative Resulting Agency Comment Mailed In Specimen Maximus Callejas M.D. LAB BLOOD ADD-ON [facility] [address] [place] [address] [facility] [address] [place] [address] [place] [address] * Basic Metabolic Panel (01/12/2024 11:59 AM CDT) Pathologist [facility] Potassium, S 4.2 3.6 - 5.2 mmol/L [...] CDT Maximus Callejas M.D. LAB BLOOD ADD-ON [facility] [address] [place], [place] [address] [address] [place] [address] from Last 3 Months or Most Recently Relevant to Health Maintenance Advance Directives For more information, please contact: [phone] Documents on File Type Date Recorded Patient Operating Engineer Apprentice Expl anation Advance Directives 03/31/2009 12:00 AM Leg luz document. See document viewer. Care Teams Artificial Inseminator Relationship Specialty Start Date End Date Elsewhere, Pcp PCP - General Internal Medicine 09/04/22
--- NOTE | 2024-04-22 13:00 | CRLHL7_ITS ---
For Patients: As a result of the Century Cures Act, medical imaging exams and procedure reports are released immediately into your electronic medical record. You may view this report before your referring provider. If you have questions, please contact your health care provider. INDICATION: Abnormal finding on previous MRI within orbit. COMPARISON: 03/07/2024. TECHNIQUE: Multiplanar T1, T2 with fat saturation post given T weighted sequences the orbits. FINDINGS: As seen on the previous exam, there is a lenticular T2 hyperintense collection in the inferior lateral extraconal fat of the left orbit measuring 7 x 18 mm (best seen on series 5, image 8). Post gadolinium imaging demonstrates avid and homogeneous enhancement. Better appreciated on the current exam, there are additional similar T2 hyperintense and enhancing lesions within the inferior medial extraconal fat of the left orbit measuring approximately 8 x 10 mm (series 5, image 7; series 8, image 12). Similar T2 hyperintense enhancing lesion within the inferior medial extraconal fat of the right orbit which extends into the intraconal fat between the orbit and medial rectus muscle measures 6 x 10 mm (series 5, image 8). No edema in the surrounding intraconal extraconal fat. No proptosis. No abnormal enlargement of the extra-ocular muscles. No abnormal signal intensity or enhancement of the bilateral optic nerve sheath complexes. No sellar suprasellar mass. No impingement of the optic chiasm. Normal cavernous sinuses bilaterally. No restricted diffusion to suggest acute ischemia. IMPRESSION: 1. As seen on the previous exam. Reticular T2 hyperintense collection in the inferolateral extraconal fat of the left orbit demonstrates avid enhancement. 2. Better seen on the current exam, there are additional T2 hyperintense enhancing lesions within inferior medial extraconal fat of the left orbit and inferomedial extraconal and intraconal fat of the right orbit. 3. Overall, findings may represent orbital venous varix or less likely lymphatic malformations 4. No edema or inflammation in the intraconal or extraconal fat. No proptosis. 5. Normal symmetric extra-ocular muscles. No abnormal signal intensity or enhancement of the optic nerve sheath complexes. Dictated by Juwan Fairchild MD @ 04/24/2024 2:04:03 PM (Electronically Signed)
--- OUTSIDE RECORDS SUMMARY | 2024-04-22 13:00 | XMS_ITS | Encounter Summary ---
Author Organization [facility] Address [address] [place] [address] Care Team Providers Care Chucking Machine Set Up Operator Tool Name Role Phone Elsewhere, Pcp Primary Care Provider Unavailabl e Reason for Referral * Outpatient (Routine) - Closed Specialty Diagnoses / Procedures Referred By Rosa panda Referred To Contact Diagnoses Cyst Renal Nephrolithiasis Procedures US Kidneys Bilateral with Bladder Maximus Callejas M.D. [address] [place] [address] [facility] Referral ID Status Reason Start Date Expiration Date Visits Re quested Visits Authorized [id number] Closed 09/11/2022 09/11/2023 1 1 Reason for Visit * Outpatient (Routine) - Closed Specialty Diagnoses / Procedures Referred By Rosa panda Referred To Contact Diagnoses Cyst Renal Nephrolithiasis Procedures US Kidneys Bilateral with Bladder Mxaimus Callejas M.D. [address] [place] [address] [facility] Referral ID Status Reason Start Date Expiration Date Visits Re quested Visits Authorized [id number] Closed 09/11/2022 09/11/2023 1 1 Encounter Details Date Type Department Care Team (Latest Contact Info) Description 01/12/2024 12:09 PM CDT - 01/12/2024 11:59 PM CDT Hospital Encounter Department of Radiology, [facility], in [place], [place] [address] [place] [phone] Maximus Callejas M.D. Cyst Renal; Nephrolithiasis Discharge Disposition: Home or Self Care Social History Tobacco Use Types Packs/Day Years Used Date Smoking Tobacco: Never Passive Smoke Exposure: Never Smokeless Tobacco: Never Alcohol Use Standard Drinks/Week Comments No 0 (1 standard drink = 0.6 oz pur e alcohol) [facility] Utilities Answer Date Recorded In the past 12 months has e [employer], gas, oil, or water company threatened to [...] How often do you attend chur or sikh services? Patient declined 07/14/2022 Do you belong [...] and heating? Not hard at all 06/05/2021 [facility] [place] of Occupat ional Health - Occupational Stress [...] your living situation today? I have a [facility] place to live 01/07/2024 Education Answer Date Recorded What is the highest level of school you have completed or the highest degree you have received? Master's degree (e.g., MA, MS, Mikaela, MEd, LOSS PREVENTION INVESTIGATOR, CYRUS) 11/10/2019 Sex and Gender Information Value [...] DME Order 1 each 07/18/2022 01/13/2024 vitamins A,C,N-jiba-bgfntr (PRESERVISION AREDS) 7,160 Units-113 mg-100 Units per [...] Nephrolithiasis documented in this encounter Care Teams Chucking Machine Set Up Operator Tool Relationship Specialty Start Date End Date Elsewhere, Pcp PCP - General Internal Medicine 09/04/22 documented as of this encounter
--- OUTSIDE RECORDS SUMMARY | 2024-04-22 13:00 | XMS_ITS | Encounter Summary ---
Author Organization [facility] Address [address] [place] [address] Care Team Providers Care Sample Card Maker Name Role Phone Lien Hernadez MD Primary Care Provider + Reason for Visit * Reason Comments Lab draw Encounter Details Date Type Department Care Team (Late st Contact Info) Description 01/29/2024 9:40 AM CDT Beaker Procedure [facility] [address] [place] [phone] Social History Tobacco Use Types Packs/Day Years [...] on filedocumented in this encounter Care Teams Sample Card Maker Relationship Specialty Start Date End Date Lien Hernadez MD [address] [address] PCP - General Family Medicine 03/16/20 documented as of this encounter
--- OUTSIDE RECORDS SUMMARY | 2024-04-22 13:00 | XMS_ITS | Referral Summary ---
Author Organization [facility] Address [address] [place] [address] Care Team Providers Care Automotive Machinist Apprentice Name Role Phone Lien Hernadez MD Primary Care Provider + Encounters Date Type Department Care Team Description 02/25/2024 Order-Scan [address] [phone] Reported, Patient 01/29/2024 Travel 01/29/2024 9:40 AM CDT Beaker Procedure [address] [phone] from Last 3 Months Allergies Active Allergy [...] HEP C ANTIBODY STAT 12/11/2016 12:20 PM CLINICAL PRODUCT SPECIALIST from Last 3 Months or Most Recently [...] 8:07 AM CDT Performed at: ??01 - [facility] [place] [address], [employer], [place] ??[id number] Demolition Engineer: Wally Garcia MD, Phone: ??[phone] Lien Hernadez MD [facility] [address] [place] [phone] * HEP C ANTIBODY (12/11/2016 12:20 PM CLINICAL PRODUCT SPECIALIST) HEP C ANTIBODY <0.1 0.0 - 0.9 s/co ratio [facility] 12/11/2016 12:2 0 PM CLINICAL PRODUCT SPECIALIST 12/11/2016 12:20 PM CLINICAL PRODUCT SPECIALIST Lien Hernadez MD IMMUNOLOGY ORDER ABLE [facility] [address] [address] [facility] [address] [place] [address] from Last 3 Months or Most Recently Relevant to Health Maintenance Care Teams Automotive Machinist Apprentice Relationship Specialty Start Date End Date Lien Hernadez MD [address] [address] PCP - General Family Medicine 03/16/20
--- OUTSIDE RECORDS SUMMARY | 2024-04-22 13:00 | XMS_ITS | Encounter Summary ---
Author Organization [facility] Address [address] [place] [address] Care Team Providers Care Handle Turner Name Role Phone Elsewhere, Pcp Primary Care Provider Unavailabl e Reason for Referral * Outpatient (Routine) - Authorized Specialty Diagnoses / Procedures Referred By Rosa t Referred To Contact Sleep Medicine Juwan Blackwood M.D. [address] [place] [address] [facility] Referral ID Status Reason Start Date Expiration Date V isits Requested Visits Authorized [id number] Authorized 01/13/2024 07/14/2025 1 1 Reason for Visit * Reason Comments Cpap Follow-up * Appointment Request (Routine) - Closed Specialty Diagnoses / Procedures Referred By Controny t Referred To Contact Sleep Medicine Referral ID Status Reason Start Date Expiration Date Visits Re quested Visits Authorized [id number] Closed 12/16/2023 12/15/2024 1 1 Encounter Details Date Type Department Care Team ([facility] st Contact Info) Description 01/13/2024 2:15 PM CDT [facility] in [place], [place] [address] [place] [phone] Amelia Jensen, R.N. Obstructive Sleep Apnea Adult (Primary Dx) Social History Tobacco Use Types Packs/Day Years Used Date Smoking Tobacco: Never Passive Smoke Exposure: Never Smokeless Tobacco: Never Alcohol Use Standard Drinks/Week Comments No 0 (1 standard drink = 0.6 oz pur e alcohol) [facility] Utilities Answer Date Recorded In the [...] often do you attend chur ch or mu-ism services? Patient declined 07/14/2022 Do you belong to any clubs o r organizations such as episcopal groups, unions, fraternal or athletic groups, or [...] and heating? Not hard at all 06/05/2021 [facility] [place] of Occupat ional Health - Occupational Stress [...] your living situation today? I have a [facility] place to live 01/07/2024 Education Answer Date Recorded What is the highest level of school you have completed or the highest degree you have received? Master's degree (e.g., MA, MS, Mikaela, MEd, ANDROID PROGRAMMER, CYRUS) 11/10/2019 Sex and Gender Information Value [...] audio/video technology by Amelia Jensen R.N. in [facility] to the patient in Patient's Home [...] No Snort Arousals: No Morning Headaches: No Cliff Score: 0 (01/07/24211 : Amelia Jensen, R.N.) [...] heated hose has been set atunknown. Vendor: [employer] [place] [facility] VITAL [...] she saw Dr. Callejas in nephrology at [facility] today. He stated her labs showed [...] Eduar Brown will continue to utilize the KXEN P10 interface for her. 6. care home management of the sleep treatment plan was [...] Primary documented in this encounter Care Teams Handle Turner Relationship Specialty Start Date End Date Elsewhere, Pcp PCP - General Internal Medicine 09/04/22 documented as of this encounter
--- OUTSIDE RECORDS SUMMARY | 2024-04-22 13:00 | XMS_ITS | Encounter Summary ---
Author Organization [facility] Address [address] [place] [address] Care Team Providers Care Cataract Lens Generator Name Role Phone Elsewhere, Pcp Primary Care Provider Unavailabl e Encounter Details Date Type Department Care Team (Late st Contact Info) Description 01/03/2024 CPAP Download Remote Patient Monitoring [facility] [address] [place] [address] [facility], Provider Social History Tobacco Use Types Packs/Day Years Used Date Smoking Tobacco: Never Smokeless Tobacco: Never Alcohol Use Standard Drinks/Week Comments No 0 (1 standard drink = 0.6 oz pur e alcohol) [facility] Utilities Answer Date Recorded In [...] any clubs o r organizations such as holiness groups, unions, fraternal or athletic groups, or [...] and heating? Not hard at all 06/05/2021 [facility] of Occupat ional Health - [...] Master's degree (e.g., MA, MS, Mikaela, MEd, DOOR TECHNICIAN, CYRUS) 11/10/2019 Sex and Gender Information Value Date Recorded Sex Assigned at Female 07/14/2022 9:10 PM CDT Gender Identity Female 07/14/2022 9:10 PM CDT Sexual Orientation Straight 07/14/2022 9: 10 PM CDT documented as of this encounter Plan of Treatment Not on file documented as of this encounter Visit Diagnoses Not on filedocumented in this encounter Care Teams Cataract Lens Generator Relationship Specialty Start Date End Date Elsewhere, Pcp PCP - General Internal Medicine 09/04/22 documented as of this encounter
--- OUTSIDE RECORDS SUMMARY | 2024-04-22 13:00 | XMS_ITS | Encounter Summary ---
Author Organization [facility] Address [address] [place] [address] Care Team Providers Care Motorcycle Mechanic Apprentice Name Role Phone Elsewhere, Pcp Primary Care Provider Unavailabl e Encounter Details Date Type Department Care Team (Late st Contact Info) Description 10/02/2023 CPAP Download Remote Patient Monitoring [facility] [address] [place] [address] [facility], Provider Social History Tobacco Use Types Packs/Day Years Used Date Smoking Tobacco: Never Smokeless Tobacco: Never Alcohol Use Standard Drinks/Week Comments No 0 (1 standard drink = 0.6 oz pur e alcohol) [facility] Utilities Answer Date Recorded In [...] often do you attend chur ch or jewish services? Patient declined 07/14/2022 Do you belong to any clubs o r organizations such as moravian groups, unions, fraternal or athletic groups, or [...] and heating? Not hard at all 06/05/2021 [facility] - Occupational [...] your living situation today? I have a [facility] place to live 01/07/2024 Education Answer Date Recorded What is the highest level of school you have completed or the highest degree you have received? Master's degree (e.g., MA, MS, Mikaela, MEd, PRINT PRESS OPERATOR, CYRUS) 11/10/2019 Sex and Gender Information Value Date Recorded Sex Assigned at Female 07/14/2022 9:10 PM CDT Gender Identity Female 07/14/2022 9:10 PM CDT Sexual Orientation Straight 07/14/2022 9: 10 PM CDT documented as of this encounter Plan of Treatment Not on file documented as of this encounter Visit Diagnoses Not on filedocumented in this encounter Care Teams Motorcycle Mechanic Apprentice Relationship Specialty Start Date End Date Elsewhere, Pcp PCP - General Internal Medicine 09/04/22 documented as of this encounter
--- OUTSIDE RECORDS SUMMARY | 2024-04-22 13:00 | XMS_ITS | Encounter Summary ---
Author Organization [facility] Address [address] [place] [address] Care Team Providers Care Home Health Lpn Name Role Phone Lien Hernadez MD Primary Care Provider + Encounter Details Date Type Department Care Team (Late st Contact Info) Description 02/25/2024 Order-Scan [address] [address] Reported, Patient Social History Tobacco [...] on filedocumented in this encounter Care Teams Home Health Lpn Relationship Specialty Start Date End Date Lien Hernadez MD [address] [address] PCP - General Family Medicine 03/16/20 documented as of this encounter
--- OUTSIDE RECORDS SUMMARY | 2024-04-22 13:00 | XMS_ITS | Encounter Summary ---
Author Organization [facility] Address [address] [place] [address] Care Team Providers Care Senior C Software Engineer Name Role Phone Elsewhere, Pcp Primary Care Provider Unavailabl e Reason for Visit * Outpatient (Routine) - Closed Specialty Diagnoses / Procedures Referred By Rosa t Referred To Contact Nephrology and Hypertension Diagnoses Cyst Renal Nephrolithiasis Maximus Callejas M.D. [address] [place] [address] [facility] Referral ID Status Reason Start Date Expiration Date Visits Re quested Visits Authorized [id number] Closed 09/11/2022 09/10/2025 1 1 Encounter Details Date Type Department Care Team (Late st Contact Info) Description 01/13/2024 10:30 AM CDT Telemedicine Division of Nephrology and Hypertension in [place], [place] [address] [place] [phone] Maximus Callejas M.D. Cyst Renal; Nephrolithiasis Social History Tobacco Use Types Packs/Day Years Used Date Smoking Tobacco: Never Passive Smoke Exposure: Never Smokeless Tobacco: Never Alcohol Use Standard Drinks/Week Comments No 0 (1 standard drink = 0.6 oz pur e alcohol) [facility] Utilities Answer Date Recorded In the past [...] often do you attend chur ch or zoroastrian services? Patient declined 07/14/2022 Do you belong [...] and heating? Not hard at all 06/05/2021 [facility] - Occupational [...] your living situation today? I have a [facility] place to live 01/07/2024 Education Answer Date Recorded What is the highest level of school you have completed or the highest degree you have received? Master's degree (e.g., MA, MS, Mikaela, MEd, FILTRATION OPERATOR, CYRUS) 11/10/2019 Sex and Gender Information [...] would like to continue her affiliation with [employer], but remotely. Maximus Callejas M.D. Total time 55 minutes, moderate complexity documented in this encounter Plan of Treatment Not on file documented as of this encounter Visit Diagnoses Diagnosis Cyst Renal Nephrolithiasis documented in this encounter Care Teams Senior C Software Engineer Relationship Specialty Start Date End Date Elsewhere, Pcp PCP - General Internal Medicine 09/04/22 documented as of this encounter
--- OUTSIDE RECORDS SUMMARY | 2024-04-22 13:00 | XMS_ITS | Encounter Summary ---
Author Organization [facility] Address [address] [place] [address] Care Team Providers Care Multimedia Teacher Name Role Phone Lien Hernadez MD Primary [...] on filedocumented in this encounter Care Teams Multimedia Teacher Relationship Specialty Start Date End Date Lien Hernadez MD [address] [address] PCP - General Family Medicine 03/16/20 documented as of this encounter
--- OUTSIDE RECORDS SUMMARY | 2024-04-22 13:00 | XMS_ITS | Clinical Summary ---
Author Organization [facility] Address [address] [place] [address] Care Team Providers Care Project Engineering Director Name Role Phone Lien Hernadez MD Primary [...] Type Department Care Team Description 02/25/2024 Order-Scan [address] [place] [address] Reported, Patient 01/29/2024 9:40 AM CDT Beaker Procedure [address] [place] [phone] 01/29/2024 Travel from Last 3 Months Immunizations [...] Cancer Paternal Grandfather Heart Disease Paternal Grandfather [place] Breast Cancer Sister Migraines Sister Relation Status [...] 04/08/2024 04/08/2023, 04/08/2023, 04/05/2022, Additional history exists Influenza Vaccine (#1) 2024 , 07/24/2022, 07/23/2022, Additional history exists Medicare Wellness Visit 07/16/2024 [...] 12/11/2016 Zoster Vaccine Completed 12/06/2021, 09/12, 04/08/2013 Procedures Procedure Name Priority Date/Time Associated Diagnosis Comments SCANNED PROCEDURE Routine 02/25/2024 3:0 6 PM CDT MAMMO DIGITAL SCREENING BI 04/08/2023 9:02 AM CDT LIPID PANEL ([facility]) Routine 04/05/2022 8:49 AM CDT Screening for hyperlipidemia HEP C ANTIBODY STAT 12/11/2016 12:20 PM SALES LEADER from Last 3 Months or Most Recently [...] 8:07 AM CDT Performed at: ??01 - [facility] ??[id number] Fruit And Vegetable Inspector: Wally Garcia MD, Phone: ??[phone] Lien Hernadez MD [facility] ORDERABL ES [facility] [address] [place] [address] * HEP C ANTIBODY (12/11/2016 12:20 PM SALES LEADER) HEP C ANTIBODY <0.1 0.0 - 0.9 s/co ratio [facility] 12/11/2016 12:2 0 PM SALES LEADER 12/11/2016 12:20 PM SALES LEADER Lien Hernadez MD IMMUNOLOGY ORDER [facility] [address] [place] [id number] [facility] [address] [place], [place] [phone] from Last 3 Months or Most Recently Relevant to Health Maintenance Care Teams Project Engineering Director Relationship Specialty Start Date End Date Lien Hernadez MD [address] [address] PCP - General Family Medicine 03/16/20
--- OUTSIDE RECORDS SUMMARY | 2024-04-22 13:00 | XMS_ITS | Clinical Summary ---
Author Organization [facility] Address [address] [place] [address] Care Team Providers Care Biological Chemist Name Role Phone Sal Arcos MD Primary [...] for each transition of care or referral. [facility] Allerg[facility] Active Allergy Reactions Criticality Noted Date [...] 83.9 kg (185 lb) 10/27/2014 11:23 AM SHIPPING SUPPORT CLERK Height 168.9 cm (5' 6.5) 10/27/2014 11:23 AM CS T Body Mass Index 29.41 10/27/2014 11:23 AM SHIPPING SUPPORT CLERK Plan of Treatment Health Maintenance Due Date Last Done Comments Colon Cancer Screening Plan Due 1950 Hep C Screening (Preventive Services) 1950 Medicare Annual Wellness Visit 1950 Mammogram 1950 Dexa 2013 Zoster/Shingles (2 of 3) 06/03/2013 04/08/2013 DTaP/Tdap/Td (2 - Tdap) 09/30/2018 09/30/2008, 07/12 COVID-19 Vaccine (3 - season) 2023 12/25/2020, 11/25/2020 Influenza (#1) 2024 08/05/2020, 07/13, 08/12/2018, Additional history exists Hib Aged Out [...] age to complete this topic Care Teams Biological Chemist Relationship Specialty Start Date End Date Sal Arcos MD PCP - General 10/07/14
--- OUTSIDE RECORDS SUMMARY | 2024-04-22 13:00 | XMS_ITS | Encounter Summary ---
Author Organization [facility] Address [address] [place] [address] Care Team Providers Care Slat Basket Maker Helper Name Role Phone Lien Hernadez MD Primary Care Provider + Reason for Visit * Reason Onset Date Comments Blood in urine 06/20/2020 Blood in urine a nd lower back pain Encounter Details Date Type Department Care Team (Late st Contact Info) Description 06/20/2020 Nurse Triage [facility] [address] [place] [phone] Lien Hernadez MD [address] [address] Social History Tobacco Use Types Packs/Day Years [...] had blood in urine since this morning. [facility] Urgent office visit-transferred to [facility] to make the appointment Nguyễn Rey RN Care inoculator Reason for Disposition ??? Blood in urine (Exception: could be normal menstrual bleeding) Answer Assessment - Initial Assessment Questions 1. COLOR of URINE: Describe the color of the urine. (e.g., tea-colored, pink, red, blood clots, bloody) [place] colored 2. ONSET: When did the bleeding [...] CDT Patient Phone Message (General) Callback Number: [phone] Ok to leave a detailed message on voicemail? yes Who are you trying to reach?: Triage nurse Message: Patient stated that she has blood in her urine and that this started earlier today. She also stated that she has some lower back pain and that she has a 17 cm kidney cyst. Requested Action: Please advise. Kimberly Quintero Care Access (AGENT BASED MODELER) Department documented in this encounter Plan of Treatment Not on file documented as of this encounter Visit Diagnoses Not on filedocumented in this encounter Care Teams Slat Basket Maker Helper Relationship Specialty Start Date End Date Lien Hernadez MD [address] [address] PCP - General Family Medicine 03/16/20 documented as of this encounter
== END 2024-04-22 12:58 | disposition home or self-care (01) ==
LOC: MRI 12:58
PROVIDERS: Visit Provider Internal Medicine
DX: H05.89 Other disorders of orbit (principal)
CPT/HCPCS: 70543; A9575

== ENCOUNTER 2024-04-26 13:45 | Outpatient (RCR) | payer MEDICARE, BC, SELFPAY ==
--- NOTE | 2024-03-25 11:29 | PT.OPEX ---
PT [place] Out[facility] Eval PT [facility] Outpatient Eval Start: 03/24/24 10:53 Freq: Status: Active Protocol: Document 03/25/24 06:59 RASHID (Rec: 03/25/24 08:42 CLRosalio [id number]) E-signed By Alesia Shepard, PT Physical Therapy Outpatient Evaluation Insurance Information Recert Due Date 06/19/24 Insurance Name Medicare B Medical Diagnosis CVA 03/07/24 Treating Diagnosis Lt sided paresthesia and abnormal sensation Referring MD Dr Yayo Gonzalez Subjective Subjective Hagdis reports waking up at about 04:30 to use the bathroom on 03/07/24. She stated her Lt side felt different. She was able to walk to/from bathroom without trouble though. She returned to bed, got up again at about 09:00 and continued to state her Lt side felt funny. Sensation was much less to touch her face/arm/etc. All left sided. Speech, strength all seemed ok. She went to ER for evaluation that same day. CT's were negative. Brain MRI showed a small acute/subacute Rt thalamic infarct and mild to moderate chronic ischemic micro-vascular disease. She has no residual motor impairment, no speech deficit , no problems with swallowing. She continues to ambulate and complete all transitional movements, and gait without any assistive devices. Her NIH stroke scale score was 0. Very alert and no distress. She is and lives alone in her own home. f/u in PT is regarding her Lt lateral trunk discomfort. While in the hospital she awoke during the night (stayed 2 nights) and had severe pressure on her Lt chest and side. They did all the cardiac tests and they were normal. She stated it felt like she had a heavy weight or half a corset on. She went home and noticed the next day she had a very tight band pain around her Lt arm - like a blood pressure cuff feeling. Again, no negative findings with testing with the . They did find a small blood clot, but she is already on small aspirin daily. Yesterday she noticed some tightness pain in her Lt hip too. Other than this pain, she states she is about 100% back to PLOF. Pain is worse at night with laying down. She primarily sleeps on her back. She has had SI and lumbar issues in her past, treated with chiro and PT and have not been a lingering concern. Pain is 2-3/10. Direct deep pressure into ribs is 5/10 Pain Comments Tenderness at Lt trunk from axillary lateral to pelvis. All Left sided. 2/10 feels like a weight is pressing on her, to 5/10 with deep pressure. No prior arm/ shoulder issues. Only abdominal surgeries of c- section and hernia repair many years ago. She is scheduled to have an ortho Dr look at her hip. She lives alone in her own home, loves to do yard work and garden. Currently living with her sister here in [place], as she was visiting when she had her stroke. 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 No motor impairment , no speech or swallowing deficit. NIH stroke scale score of zero/0. She is alert and in no distress. She is independent in all bed mobility and transitional movements. She presents with reduced lumbar lordosis and flattened spine. Slightly widened Terrence. SLS of average 7 seconds troy. Significant lack of trunk EXT. Fairly normal UE and LE AROM and MMT - with the exception of hip EXT and ABD 4/5. Her primary complaint is of Lt lateral trunk pain from axillar region to pelvic ridge and hip. Pain is minimal , but it is constant and new ( since the stroke). She has good rib PA movement (tested in side lying - pain free with pressure near vert). Denies increase in pain with deep breath or active exhale. Unable to recreate pain or noted hypertonicity of any specific tissue with moderate palpation pressure. She did report of pain increase with deeper pressure at lower floating ribs (which she demonstrated by pressing deeply into her side). She does have myofascial tension and some palpable adhesions along her lateral Lt trunk. She may benefit from PT interventions of MFR/skin rolling/cupping and kinesiotaping, as well as stretching. Thank you for this referral. Plan of Care Rehabilitation Potential Good Physical Therapy Goals in 6-10 visits, client will be able to: 1. Perform a Rt trunk SB without discomfort 80% of the time to promote ease of reaching overhead, twisting doing yard work. 2. Lift and carry up to 25# a distance of 30 feet, without pain greater than 2/10 80% of the time - to promote ease of carrying groceries, laundry, yard care tools, etc 3. Roll in bed and perform sit to stand without Lt lateral trunk pain greater than 2/10 80% of the time. 4. IND in proper execution of HEP with emphasis on breathing , reps and HOLD times LTG: Feel comfortable with all self cares and yard tasks, cooking to return to her own home and live safely, independently. Coordination/Communication With Referral Source Frequency/Duration 1X/Wk for 10 visits Patient Will Be Discharged From Therapy Completion of LTG(s),Skills Plateau,Independent w/HEP, Independently Progressing Evaluation Billing Untimed Code Treatment Minutes 35 Complexity Low Certification Information Initial Certification Date 03/25/24 Ending Certification Date 06/19/24 Provider Signature Required Yes Provider Signature Shows Agreement With POC & Medical Necessity Physician NPI Number Write NPI# Here Physician Comment/Change : Physician Signature & Date Requested Please Sign/Date Here
== END 2024-08-24 23:59 | disposition home or self-care (01) ==
PROVIDERS: Visit Provider Internal Medicine
DX: I63.9 Cerebral infarction, unspecified (principal); Z51.89 Encounter for other specified aftercare
CPT/HCPCS: 97110; 97140; 97161

== ENCOUNTER 2025-01-13 10:05 | Outpatient (CLI) | payer MEDICARE, BC, SELFPAY | END 2025-01-13 10:06 | disposition home or self-care (01) | LOC: NFLDREF 01-18 20:26 | PROVIDERS: PCP Internal Medicine; Referring Provider Internal Medicine; Visit Provider Internal Medicine | DX: Z13.228 Encounter for screening for other metabolic disorders (principal); Z13.6 Encounter for screening for cardiovascular disorders | CPT/HCPCS: 80053; 80061 ==

== ENCOUNTER 2025-01-17 11:06 | Outpatient (CLI) | payer MEDICARE, BC, SELFPAY ==
--- NOTE | 2025-01-17 11:15 | CRLHL7_ITS ---
For Patients: As a result of the Century Cures Act, medical imaging exams and procedure reports are released immediately into your electronic medical record. You may view this report before your referring provider. If you have questions, please contact your health care provider. CLINICAL HISTORY: Renal cysts COMPARISON: Outside CT 03/11/2024 TECHNIQUE: Spann scale and color Doppler images were acquired of the kidneys and urinary bladder. FINDINGS: Large circumscribed cyst arises from the lower pole of the right kidney again noted which measures 13.0 x 10.1 x 14.0 cm. Additional cysts are present elsewhere measuring up to 5.3 x 3.5 x 5.6 cm in the upper pole. Nonobstructing renal calculi are present measuring up to 12 x 8 x 11 millimeters. Left renal cysts measure up to 3.2 x 2.7 x 3.0 cm. No solid renal mass or hydronephrosis. The right kidney measures 12.4cm in length and the left kidney measures 10.9cm in length. The renal cortex appears of normal thickness. The urinary bladder appears normal. Color Doppler images reveal a normal appearance of both ureteral jets. There is no evidence of bladder calculi or diverticula. Bladder volumes 56 cc. IMPRESSION: Benign bilateral renal cysts, [place] 1. Dictated by Nguyễn Foley MD @ 01/17/2025 1:17:07 PM (Electronically Signed)
== END 2025-01-17 11:07 | disposition home or self-care (01) ==
LOC: US 11:08
PROVIDERS: PCP Internal Medicine; Visit Provider Internal Medicine
DX: N28.1 Cyst of kidney, acquired (principal)
CPT/HCPCS: 76770

== ENCOUNTER 2025-01-26 08:35 | Outpatient (CLI) | payer MEDICARE, BC, SELFPAY | END 2025-01-26 08:36 | disposition home or self-care (01) | PROVIDERS: PCP Internal Medicine; Visit Provider Internal Medicine | DX: M85.80 Other specified disorders of bone density and structure, unspecified site (principal); Z79.899 Other long term (current) drug therapy | CPT/HCPCS: 82306; 82607 ==

== ENCOUNTER 2025-07-08 12:50 | Emergency (ER) | payer MEDICARE, BC, SELFPAY ==
--- OUTSIDE RECORDS SUMMARY | 2024-02-25 05:00 | XMS_ITS ---
Author Organization [facility] Address [address] [place] [address] [place] [address] Care Team Providers Care Dye Mixer Name Role Phone BIRGIT CHAVEZ, DANIEL Primary Care Provider Un available Noel Braswell Unavailable [phone] REASON FOR VISIT colonoscopy, mac Encounters Encounter Location Date Provider Diagnosis [facility] [address] [facility] [address] [place] [address] 02/25/2024 Noel Braswell Plan Of Treatment No Information Progress Notes * EMELY SHULTZ HDOB:1949 (75 yo F)Acc No.[id number]:02/25/2024 Colonoscopy Patient: EMELY IRIZARRY Provider: Pili Braswell MD :[id number] A ge:73 Y S ex:Female Date:02/25/2024 Address:[address] [facility] Pcp:Carlos SPRINGER Subjective: * Chief Complaints: * 1 . Colonoscopy, mac. * Medical History: Objective: * Vitals: Assessment: Plan: * Treatment: * * The named appointment provid er may or may not be the originator of this progress note, and it is not deemed complete until electronically signed by the appointment provider. Sign off status: Pending * Provider: Pili Braswell MD Date: 0 02/25/2024 Generated for Zurii ng/Faadang/eTransmitting on: 0 07/08/2025 12:53 PM CDT
--- OUTSIDE RECORDS SUMMARY | 2025-07-08 12:53 | XMS_ITS | Encounter Summary ---
Author Organization [facility] Address [address] [place] [address] Care Team Providers Care Public Health Service Officer Name Role Phone Lien Hernadez MD Primary Care Provider + Reason for Visit * Reason Onset Date Comments Blood in urine 06/20/2020 Blood in urine a nd lower back pain Encounter Details Date Type Department Care Team (Late st Contact Info) Description 06/20/2020 Nurse Triage [facility] [address] [place] [address] Lien Hernadez MD [address] [place] [address] Social History Tobacco Use Types Packs/Day Years Used Date Smoking Tobacco: Never Smokeless Tobacco: Never Comments Unknown Sex and Gender Information Value Date Recorded Sex Assigned at Not on file Legal Sex Female 1:34 PM CDT Gender Identity Not on file Sexual Orientation [...] had blood in urine since this morning. [facility] Urgent office visit-transferred to [facility] to make the appointment Nguyễn Rey RN Care religion teacher Reason for Disposition ??? Blood in urine (Exception: could be normal menstrual bleeding) Answer Assessment - Initial Assessment Questions 1. COLOR of URINE: Describe the color of the urine. (e.g., tea-colored, pink, red, blood clots, bloody) [place] colored 2. ONSET: When did the bleeding [...] period? na Protocols used: URINE - BLOOD IN-A-AH * Telephone Encounter - IngridKimberly - 06/20/2020 4:25 PM CDT Patient Phone Message (General) Callback Number: [phone] Ok to leave a detailed message on voicemail? yes Who are you trying to reach?: Triage nurse Message: Patient stated that she has blood in her urine and that this started earlier today. She also stated that she has some lower back pain and that she has a 17 cm kidney cyst. Requested Action: Please advise. Kimberly Quintero Care Access (TEACHER HEARING IMPAIRED) Department documented in this encounter Plan of Treatment Not on file documented as of this encounter Visit Diagnoses Not on filedocumented in this encounter Care Teams Public Health Service Officer Relationship Specialty Start Date End Date Lien Hernadez MD PCP - General Family Medicine 03/16/20 documented as of this encounter
--- OUTSIDE RECORDS SUMMARY | 2025-07-08 12:54 | XMS_ITS | Clinical Summary ---
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 See letter for details from cancer genetic counselor dated 09/13/24. 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 Personal history of colonic polyps 11/25/2008 Family history of malignant neoplasm of gastrointestinal tract 11/25/2008 Family History Medical History Relation Name Comments Other Paternal Grandfather Rectal cancer Relation Name Status Comments Paternal Grandfather Social History Tobacco Use Types Packs/Day Years Used Date Smoking Tobacco: Never Assessed Comments Unknown Sex and Gender Information Value Date Recorded Sex Assigned at Not on file Legal Sex Female 5:33 AM SAND SLINGER OPERATOR Gender Identity Not on file Sexual Orientation Not on file Obstetrics History Last Filed Vital Signs Vital Sign Reading Time Taken Comments Blood Pressure 132/75 10/03/2009 1:10 PM SAND SLINGER OPERATOR Pulse 82 10/03/2009 1:10 PM SAND SLINGER OPERATOR Temperature 36.3 C (97.3 F) 10/03/2009 12:28 PM SAND SLINGER OPERATOR Respiratory Rate 16 10/03/2009 1:10 PM SAND SLINGER OPERATOR Oxygen Saturation 99% 11/25/2008 1:35 PM SAND SLINGER OPERATOR Inhaled Oxygen Concentration - - Weight 67.1 kg (148 lb) 10/03/2009 12:28 PM SAND SLINGER OPERATOR Height 168.9 cm (5' 6.5) 10/03/2009 12:28 PM CS T Body Mass Index 23.53 10/03/2009 12:28 PM SAND SLINGER OPERATOR Plan of Treatment Health Maintenance Due Date Last Done Comments Tetanus booster 1959 Depression screening for age 12+ 1960 BMI (ht and wt on same day) for age 18+ 1966 Hepatitis C screening for age 18-79 1966 Pneumococcal series for age 50+ (1 of 1 - PCV) 1998 Zoster (shingles) series for age 50+ (1 of 2) 1998 DEXA/DXA scan for age 65+ 2013 Medicare Wellness for age 65+ 2013 RSV vaccine for adults or (1 - 1-dose 75+ series) 2023 COVID-19 vaccine series (2023- season) 2025 07/01/2024, 12/25/2023, 07/16/2023, Additional history exists Influenza Vaccine (#1) 2025 Hepatitis B series for 19+ Aged Out N o longer eligible based on patient's age to complete this topic Insurance [facility] MEDICARE [place] ONLY MEDICARE PART B HB ONLY Advance Directives * Full Code (Latest Code Status on File) Date Activated Date Inactivated Comments 11/25/2008 12:24 PM 11/26/2008 2:07 AM Care Teams Geophysicist Relationship Specialty Start Date End Date Sal Arcos MD PCP - General 10/02/09
--- OUTSIDE RECORDS SUMMARY | 2025-07-08 12:54 | XMS_ITS | Encounter Summary ---
Author Organization [facility] Address [address] [place] [address] Care Team Providers Care Manager Name Role Phone Elsewhere, Pcp Primary Care Provider Unavailabl e Encounter Details Date Type Department Care Team (Late st Contact Info) Description 2025 CPAP Download Remote Patient Monitoring [facility] [address] [place] [address] [facility], Provider, Social History Tobacco Use Types Packs/Day Years Used Date Smoking Tobacco: Never Passive Smoke Exposure: Never Smokeless Tobacco: Never Alcohol Use Standard Drinks/Week Comments No 0 (1 standard drink = 0.6 oz pur e alcohol) [facility] Utilities Answer Date Recorded In the past 12 months has e [employer], gas, oil, or water [employer] threatened to shut off services in your home? No 01/07/2024 Hunger Vital Sign Answer Date Recorded [...] things needed for daily living? No 01/07/2024 Housing Stability Answer Date Recorded What is your living situation today? I have a [facility] place to live 01/07/2024 Education Answer Date Recorded What is the highest level of school you have completed or the highest degree you have received? Master's degree (e.g., MA, MS, Mikaela, MEd, NUCLEAR PHYSICIAN, CYRUS) 11/10/2019 Comments Unknown Sex and Gender Information Value Date Recorded Sex Assigned at Female 07/14/2022 9:10 PM CDT Legal Sex Female 8:17 AM TELEPHONE INFORMATION SUPERVISOR Gender Identity Female 07/14/2022 9:10 PM CDT Sexual Orientation Straight 07/14/2022 9: 10 PM CDT documented as of this encounter Plan of Treatment Not on file documented as of this encounter Visit Diagnoses Not on filedocumented in this encounter Care Teams Manager Relationship Specialty Start Date End Date Elsewhere, Pcp PCP - General Internal Medicine 09/04/22 documented as of this encounter
--- OUTSIDE RECORDS SUMMARY | 2025-07-08 12:54 | XMS_ITS | Clinical Summary ---
Author Organization [facility] Address [address] [place] [address] Care Team Providers Care Needle Punch Operator Name Role Phone Lien Hernadez MD Primary Care Provider + Allergies Active Allergy Reactions Criticality Noted Date Comments Amoxicillin 12/18/2016 Other reaction(s): Awake all night Azithromycin 10/13/2009 Bacitracin 10/13/2009 Cefuroxime Axetil 10/09/2017 Other reaction(s): Hives / Skin Rash Latex 12/01/2014 Polymyxin B Sulfate 10/13/2009 Medications cholecalciferol , Vitamin D3, 1,000 unit oral tablet Take 3 tablets (75 mcg) by mouth once daily. 7 Active CPAP Diagnosis: Obstructive Sleep Apnea Pressure Setting: Active vit C/E/Zn/coppr/sarahi tein/zeaxan (PRESERVISION AREDS-2 ORAL) Take by mouth. A ctive cyanocobalamin, vitamin B-12, 500 mcg oral chew tab Chew. 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 See letter for details from cancer genetic counselor dated 09/13/24. 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 Hyperlipidemia LDL goal <130 04/16/2018 04/16/2018 Dysuria 12/18/2016 04/16/2018 Hyperlipidemia 12/07/2015 04/16/2018 Gastroesophageal reflux disease 07/13/2015 04/16/2018 Postmenopausal bleeding 10/13/2009 07/0 02/2018 Spasm of muscle 10/13/2009 04/16/2018 Viremia 10/13/2009 04/16/2018 Encounters Date Type Department Care Team Description 04/28/2025 Results Follow-Up [facility] [address] [place] [id number] Lien Hernadez MD CUSTOMER SERVICE ASSISTANT PAP/APTIMA HPV W/REFLEX TO HPV GENOTYPES ([facility]), VITAMIN D, 25-HYDROXY ([facility]), VITAMIN B12 ([facility]), Additional followed-up results: 2 04/26/2025 9:30 AM CDT Beaker Procedure [facility] [address] [place] [id number] Vitamin D deficiency; Vegetarian diet; Screening for diabetes mellitus; Lipid screening 04/26/2025 Travel 04/22/2025 1:00 PM CDT Office Visit [facility] [address] [place] [address] Lien Hernadez MD Encounter for Medicare annual wellness exam (Primary Dx); Right thalamic stroke (HCC); Malignant melanoma of skin (HCC); BRITTANY (obstructive sleep apnea); Congenital cystic kidney disease; Lipid screening; Pap smear for cervical cancer screening; Screening for diabetes mellitus 04/22/2025 Travel from Last 3 Months Immunizations Immunization Administration Dates Next Due HIB/HepB 11/13/2000,06/13/2000,05/12/2000 Hep B Adult 11/13/2000,06/13/2000,05/12/2000 Influenza High Dose (Fluzone Quadrivalent PF) 07/24/2023,07/24/2022,07/23/2022,2019,08/12/2018,11/26/2017,08/10/2015,1 ,09/07/2013,07/14/2013 Influenza recombinant (FluBl ok Quadrivalent PF) 07/19/2021,07/23/2019,09/13/2016,2009,07/10/2009 Influenza split virus quadrivalent 07/23,07/14/2013,09/01/2010,2008,09/11/2007,11/28/2006,09/17/2004,1 Moderna 12+ Yrs Bivalent COV ID Vaccine (Blue cap) 02/06/2023,07/03/2022 Pfizer Comirnaty 12+ Yrs COV ID Vaccine Seasonal 07/01/2024 Pneumococcal PCV13 11/13/2016 Pneumococcal PCV20 09/13/2024 Pneumococcal PPSV23 05/30/2014 SPIKEVAX (Moderna) 12+ Yrs M onovalent COVID Vaccine (data reduction technician) 01/25/2022,08/13/2021,12/25/2020,2020 Td 06/04/2021,01/30/2015 Td adult absorbed PF (2 Lf) 07/12/2002 Tdap 09/30/2008 Zoster Live 04/08/2013 Zoster Recombinant 12/06/2021,09/24/2021 Family History Medical [...] PHQ-2 Answer Date Recorded PHQ2 Total 0 04/22/2025 Comments No Sex and Gender Information Value Date Recorded Sex Assigned at Not on file Legal Sex Female 1:34 PM CDT Gender Identity Not on file Sexual Orientation Not on file Last Filed Vital Signs Vital Sign Reading Time Taken Comments Blood Pressure 130/78 04/22/2025 2:22 PM CDT Pulse 80 04/22/2025 1:31 PM CDT Temperature 36.3 C (97.3 F) 04/22/2025 1:31 PM CDT Respiratory Rate 16 04/22/2025 1:31 PM CDT Oxygen Saturation 96% 04/22/2025 1:31 PM CDT Inhaled Oxygen Concentration - - Weight 88.8 kg (195 lb 11.2 oz) 04/22/2025 1:31 PM CDT Height 167 cm (5' 5.75) 04/22/2025 1:31 PM CDT Body Mass Index 31.83 04/22/2025 1:31 PM CDT Plan of Treatment Health Maintenance Due Date Last Done Comments Osteoporosis Screening 01/31/2019 4 (Previously completed) RSV Vaccines (1 - 1-dose 75+ series) 2023 COVID-19 Vaccine ( season) 2025 07/01/2024, 02/06/2023, 07/03/2022, Additional history exists Influenza Vaccine (#1) 2025 , 07/24/2022, 07/23/2022, Additional history exists Mammogram Screening 04/20/2026 04/20/2025, 04/19/2024, 04/08/2023, Additional history exists Depression Follow-Up (PHQ-9) 04/22/2026 04/22/2025 Medicare Wellness Visit 04/22/2026 04/22/20 25, 07/16/2023, 04/05/2022, Additional history exists Yearly Review of HCD 04/22/2026 04/22/2025, 09/23/2023, 07/16/2023, Additional history exists Colonoscopy 02/24/2029 02/25/2024, 0504/2019 (Previously completed), 12/24/2013 (Previously completed) Lipid Screening 04/26/2030 04/26/2025, 03/14, 04/04/2021, Additional history exists Adult Tetanus Booster 06/04/2031 06/04/2021 , 01/30/2015, 09/30/2008, Additional history exists Hepatitis C Screening Completed 12/11/2016 Zoster Vaccine Completed 12/06/2021, 09/12, 04/08/2013 Pneumococcal 50+ Years Completed , 11/13/2016, 05/30/2014 Meningococcal B Vaccine Aged Out No l onger eligible based on patient's age to complete this topic Procedures Procedure Name Priority Date/Time Associated Diagnosis Comments LIPID PANEL ([facility]) Routine 04/26/2025 9:34 AM CDT Lipid screening GLUCOSE ([facility]) Routine 04/26/2025 9:3 4 AM CDT Screening for diabetes mellitus VITAMIN B12 ([facility]) Routine 04/26/2025 9:34 AM CDT Vegetarian diet VITAMIN D, 25-HYDROXY ([facility]) Routine 04/26/2025 9:34 AM CDT Vitamin D deficiency CUSTOMER SERVICE ASSISTANT PAP/APTIMA HPV W/REFLEX TO HPV GENOTYPES ([facility]) Routine 04/22/2025 2:52 PM CDT Pap smear for cervical cancer screening MAMMO DIGITAL SCREENING BI 04/20/2025 12:32 PM CDT HEP C ANTIBODY STAT 12/11/2016 12:20 PM COMPUTER OPERATIONS ANALYST from Last 3 Months or Most Recently Relevant to Health Maintenance Results * VITAMIN D, 25-HYDROXY ([facility]) (04/26/2025 9:34 AM CDT) Vitamin D,25 Hydroxy ([facility]) 52.5 30.0 - 100.0 ng/mL 04/27/2025 7:09 AM CDT [facility] Comment: Vitamin D deficiency has been defined by the [place] of Medicine and an Endocrine Society practice guideline as a level of serum 25-OH vitamin D less than 20 ng/mL (1,2). The Endocrine Society went on to further define vitamin D insufficiency as a level between 21 and 29 ng/mL (2). 1. IOM ([place] of Medicine). 2010. Dietary reference intakes for calcium and D. [place]: The National Academies Press. 2. Blessing MF, Frederick ANDERSEN, Milad HICKS, et al. Evaluation, treatment, and prevention of vitamin D deficiency: an Endocrine Society clinical practice guideline. JCEM. 2010; 96(7):1911-30. Blood Venipuncture / Unknown 04/26/2025 9:34 AM CDT 04/26/2025 9:34 AM CDT [facility] - 04/27/2025 7:09 AM CDT Performed at: [address] [place] [id number] Net Developer Consultant: Wally Garcia MD, Phone: [phone] us Lien Hernadez MD [facility] ORDERABLES Final Result [facility] [address] [place] [address] * LIPID PANEL ([facility]) (04/26/2025 9:34 AM CDT) Cholesterol ([facility]) 140 100 - 199 mg/dL 04/27/2025 8:09 AM CDT [facility] Triglycerides ([facility]) 59 0 - 149 mg/dL 04/27/2025 8:09 AM CDT [facility] HDL Cholesterol ([facility]) 51 >39 mg/dL 04/27/2025 8:09 AM CDT [facility] VLDL Cholesterol Jm ([facility]) 12 5 - 40 mg/dL 04/27/2025 8:09 AM CDT [facility] LDL Cholesterol Calc - NIH ([facility]) 77 0 - 99 mg/dL 04/27/2025 8:09 AM CDT [facility] Blood Venipuncture / Unknown 04/26/2025 9:34 AM CDT 04/26/2025 9:34 AM CDT Narrative [facility] - 04/27/2025 8:09 AM CDT Performed at: - [address] [id number] Net Developer Consultant: Wally Garcia MD, Phone: [phone] us Lien Hernadez MD [facility] ORDERABLES Final Result Performing Organization Address [facility] de Phone Number [facility] [address] [place] [address] * VITAMIN B12 ([facility]) (04/26/2025 9:34 AM CDT) [facility] Vitamin B12 ([facility]) 809 232 - 1245 pg/mL 04/27/2025 9:09 AM CDT [facility] Blood Venipuncture / Unknown 04/26/2025 9:34 AM CDT 04/26/2025 9:34 AM CDT Narrative [facility] - 04/27/2025 9:09 AM CDT Performed at: - [address] [id number] Net Developer Consultant: Wally Garcia MD, Phone: [phone] Lien Hernadez MD [facility] ORDERABLES Final Result Performing Organization Address [facility] Co de Phone Number [facility] [address] [facility] [place] [address] * GLUCOSE ([facility]) (04/26/2025 9:34 AM CDT) Glucose ([facility]) 95 70 - 99 mg/dL 04/27/2025 8:09 AM CDT [facility] Blood Venipuncture / Unknown 04/26/2025 9:34 AM CDT 04/26/2025 9:34 AM CDT Narrative [facility] - 04/27/2025 8:09 AM CDT Performed at: 01 - [facility] [place], [place] [id number] Net Developer Consultant: Wally Garcia MD, Phone: [phone] us Lien Hernadez MD [facility] ORDERABLES Final Result [facility] [address] [place] [address] * CUSTOMER SERVICE ASSISTANT PAP/APTIMA HPV W/REFLEX TO HPV GENOTYPES ([facility]) (04/22/2025 2:52 PM CDT) Diagnosis: ([facility]) COMMENT 04/26/2025 6:08 PM CDT [facility] Comment: NEGATIVE FOR INTRAEPITHELIAL LESION OR MALIGNANCY. Specimen Adequacy: ([facility]) COMMENT 04/26/2025 6:08 PM CDT [facility] Comment: Satisfactory for evaluation. No endocervical component is identified. Clinician Provided ICD10: ([facility]) COMMENT 04/26/2025 6:08 PM CDT [facility] Comment: Z12.4 Performed by: COMMENT 04/26/2025 6:08 PM CDT [facility] Comment: Ramandeep Avelar, Leather Drier (ASCP) Cyto Comments ([facility]) . 04/26/2025 6:08 PM CDT [facility] Note: ([facility]) COMMENT 6:08 PM CDT [facility] Comment: The Pap smear is a screening test designed to aid in the detection of premalignant and malignant conditions of the uterine cervix. It is not a diagnostic procedure and should not be used as the sole means of detecting cervical cancer. Both false-positive and false-negative reports do occur. HPV Aptima ([facility]) Negative Negative 04/26/2025 6:08 PM CDT [facility] Comment: This nucleic acid amplification test detects fourteen high-risk HPV types (16,18,31,33,35,39,45,51,52,56,58,59,66,68) without differentiation. HPV Genotype Reflex ([facility]) COMMENT 04/26/2025 6:08 PM CDT [facility] Comment: Criteria not met, HPV Genotype not performed. Test Methodology ([facility]) COMMENT 04/26/2025 6:08 PM CDT [facility] Comment: This liquid based ThinPrep(R) pap test was screened with the use of an image guided system. Pap 04/22/2025 2:52 PM CDT 04/22/2025 2:52 PM CDT Narrative [facility] - 04/26/2025 6:08 PM CDT Specimen Comment: [id number] Specimen Comment: Source.............Cervix Specimen Comment: LMP / Prev Treat...None Specimen Comment: No. of containers..01 ThinPrep Vial Performed at: 01 - [address] [id number] Net Developer Consultant: Tavon Mcnamara MD, Phone: [phone] Performed at: 02 - [address] [place] [address] [place] [id number] Net Developer Consultant: Tavon Mcnamara MD, Phone: [phone] Performed at: 03 - [address] [id number] Net Developer Consultant: Tavon Mcnamara MD, Phone: [phone] us Lien Hernadez MD [facility] ORDERABLES Final Result [facility] [address] [facility] [place] [id number] * MAMMO DIGITAL SCREENING BI (04/20/2025 12:32 PM CDT) Anatomical Region Laterality Modality Breast Bilateral Mammography 04/20/2025 12:3 2 PM CDT Narrative 04/20/2025 12:32 PM CDT Original Report EXAM: FULL-FIELD DIGITAL BILATERAL SCREENING TOMOSYNTHESIS (3D) MAMMOGRAPHY WITH CAD CLINICAL INFORMATION: Screening. The patient reports no palpable abnormalities or other breast concern. TECHNICAL INFORMATION: Bilateral craniocaudal and mediolateral oblique full-field digital bilateral screening tomosynthesis (3D) exam with synthetic 2D views. CAD was applied. COMPARISON: Mammograms dated 04/19/2024, 04/08/2023, 04/05/2022 BREAST COMPOSITION: There are scattered areas of fibroglandular density. INTERPRETATION: No mammographic evidence for malignancy in either breast. CONCLUSION: BI-RADS 1. Negative. RECOMMENDATION: Annual screening mammography. The appropriate information has been entered into a reminder system with a targeted due date for the next mammogram. [facility] sent letter to patient regarding results. Read by: Dr. JIN WREN M.D. Reviewed and Electronically Signed by: Dr. JIN WREN M.D. Procedure Note Jin Wren MD - 05/27/2025 Original Report EXAM: FULL-FIELD DIGITAL BILATERAL SCREENING TOMOSYNTHESIS (3D) MAMMOGRAPHY WITH CAD CLINICAL INFORMATION: Screening. The patient reports no palpable abnormalities or other breast concern. TECHNICAL INFORMATION: Bilateral craniocaudal and mediolateral oblique full-field digital bilateral screening tomosynthesis (3D) exam with synthetic 2D views. CAD was applied. COMPARISON: Mammograms dated 04/19/2024, 04/08/2023, 04/05/2022 BREAST COMPOSITION: There are scattered areas of fibroglandular density. INTERPRETATION: No mammographic evidence for malignancy in either breast. CONCLUSION: BI-RADS 1. Negative. RECOMMENDATION: Annual screening mammography. The appropriate information has been entered into a reminder system with a targeted due date for the next mammogram. [facility] sent letter to patient regarding results. Read by: Dr. JIN WREN M.D. Reviewed and Electronically Signed by: Dr. JIN WREN M.D. Lien Hernadez MD MAMMO ORDERABLE Final Re sult * HEP C ANTIBODY (12/11/2016 12:20 PM COMPUTER OPERATIONS ANALYST) HEP C ANTIBODY <0.1 0.0 - 0.9 s/co ratio [facility] 12/11/2016 12:2 0 PM COMPUTER OPERATIONS ANALYST 12/11/2016 12:20 PM COMPUTER OPERATIONS ANALYST Lien Hernadez MD IMMUNOLOGY ORDERABLE Fin al Result Performing Organization Address [facility] Co de Phone Number [facility] [address] [place], [place] [address] [facility] [address] [place], [place] [phone] from Last 3 Months or Most Recently Relevant to Health Maintenance Insurance [facility] MEDICARE SUPPLEMENT MEDICARE PART A & B Care Teams Needle Punch Operator Relationship Specialty Start Date End Date Lien Hernadez MD PCP - General Family Medicine 03/16/20
--- OUTSIDE RECORDS SUMMARY | 2025-07-08 12:54 | XMS_ITS | Encounter Summary ---
Author Organization [facility] Address [address] [place] [address] Care Team Providers Care Busher Helper Name Role Phone Lien Hernadez MD Primary Care Provider + Encounter Details Date Type Department Care Team (Late st Contact Info) Description 04/28/2025 Results Follow-Up [facility] [address] [place] [address] [place] [address] Lien Hernadez MD [address] [place] [address] ZIPPER JOINER PAP/APTIMA HPV W/REFLEX TO HPV GENOTYPES ([facility]), VITAMIN D, 25-HYDROXY ([facility]), VITAMIN B12 ([facility]), Additional followed-up results: 2 Social History Tobacco Use Types Packs/Day Years [...] on filedocumented in this encounter Care Teams Busher Helper Relationship Specialty Start Date End Date Lien Hernadez MD PCP - General Family Medicine 03/16/20 documented as of this encounter
--- OUTSIDE RECORDS SUMMARY | 2025-07-08 12:54 | XMS_ITS | Encounter Summary ---
Author Organization [facility] Address [address] [place] [address] Care Team Providers Care Software Design Manager Name Role Phone Elsewhere, Pcp Primary Care Provider Unavailabl e Encounter Details Date Type Department Care Team (Late st Contact Info) Description 06/13/2025 CPAP Download Remote Patient Monitoring [facility] [address] [place] [phone] [facility], Provider, Social History Tobacco Use Types Packs/Day Years Used Date Smoking Tobacco: Never Passive Smoke Exposure: Never Smokeless Tobacco: Never Alcohol Use Standard Drinks/Week Comments No 0 (1 standard drink = 0.6 oz pur e alcohol) [facility] Utilities Answer Date Recorded In the past 12 months has e [employer], gas, oil, or water [employer] threatened to shut off services in your [...] Master's degree (e.g., MA, MS, Mikaela, MEd, COSTUME RENTAL CLERK, CYRUS) 11/10/2019 Comments Unknown Sex and Gender Information Value Date Recorded Sex Assigned at Female 07/14/2022 9:10 PM CDT Legal Sex Female 8:17 AM MEDICAL LIBRARIAN Gender Identity Female 07/14/2022 9:10 PM CDT Sexual Orientation Straight 07/14/2022 9: 10 PM CDT documented as of this encounter Plan of Treatment Not on file documented as of this encounter Visit Diagnoses Not on filedocumented in this encounter Care Teams Software Design Manager Relationship Specialty Start Date End Date Elsewhere, Pcp PCP - General Internal Medicine 09/04/22 documented as of this encounter
--- OUTSIDE RECORDS SUMMARY | 2025-07-08 12:54 | XMS_ITS | Clinical Summary ---
Author Organization [facility] Address [address] [place] [address] Care Team Providers Care Architecture Professor Name Role Phone Elsewhere, Pcp Primary Care Provider Unavailabl e Source Comments Patient records contain information from all sites at [facility]. For routine questions regarding patient records, call [phone] during business hours, M-F 8:00 AM - 5:00 PM Central Time. Record requests for emergency care only can be directed to [phone] at any time.[facility] Allergies Active Allergy Reactions Criticality Noted [...] B Sulfate Hives (Reselect Reaction) 10/13/2009 Medications * This document contains information received from the source organization and may not represent a complete record from that organization. cholecalciferol , vitamin D3, 3,000 unit tablet Take 1 tablet by mouth daily. 7 Active cyanocobalamin (VITAMIN B12) 500 mcg tablet Take 1 tablet by mouth daily. 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 Date Type Department Care Team Description 06/13/2025 CPAP Download Remote Patient Monitoring [facility] [address] [place] [address] [facility], Provider, 2025 CPAP Download Remote Patient Monitoring [facility] [address] [place] [address] [facility], Provider, 04/12/2025 CPAP Download Remote Patient Monitoring [facility] [address] [place] [address] [facility], Provider, from Last 3 Months Immunizations Immunization Administration Dates Next Due HZV (ZOSTAVAX) 04/08/2013 HepB, Unspecified 11/13/2000,06/13/2000,05/12/20 00 Influenza Split 07/14/2013,11/28/2006 PCV13 11/13/2016 PPSV23 05/30/2014 Td Preservative Free (TENIVA C, DECAVAC) 01/30/2015 Td, (Adult) Unspecified 07/12/2002 Tdap 09/30/2008 influenza trivalent high dos e (HD)(PF) 08/12/2018,11/26/2017,08/10/2015,2013,09/07/2013,07/14/2013 influenza trivalent vaccine (6 months and older)(PF) 09/13/2016,09/01/2010,07/10/2009 Family History Medical History Relation Name Comments Arthritis Father Celso Brown Hypertension Father Celso Brown Transient ischemic attack Father Celso Parikhnbrian Tuberculosis Father's Brother Rubens Alcohol abuse Maternal Grandfather Alyusra Diabetes Maternal Grandfather Alyusra Osteoporosis Maternal Grandmother Flower Other cancer Mother Connie Brown Stomach c ancer Rectal cancer Paternal Grandfather Randall Brown Arthritis Paternal Grandmother Sailaja Breast cancer Sister Almuth Migraines Sister Almuth Relation Name Status Comments Father Celso Brown Father's Brother Rubens Maternal Grandfather Cristino Maternal Grandmother Flower Mother Connie Brown Paternal Grandfather Randall Brown Paternal Grandmother Sailaja Sister Almtegan Social History Tobacco Use Types Packs/Day Years Used Date Smoking Tobacco: Never Passive Smoke Exposure: Never Smokeless Tobacco: Never Tobacco Cessation:Counseling Given: Not Answered Alcohol Use Standard Drinks/Week Comments No 0 (1 standard drink = 0.6 oz pur e alcohol) [facility] Utilities Answer Date Recorded In the past 12 months has e [employer], gas, oil, or water [employer] threatened to shut off services in your [...] living situation today? I have a [facility] place to live 01/07/2024 Education Answer Date Recorded What is the highest level of school you have completed or the highest degree you have received? Master's degree (e.g., MA, MS, Mikaela, MEd, RADIOPHONE OPERATOR, CYRUS) 11/10/2019 Comments Unknown Sex and Gender Information Value Date Recorded Sex Assigned at Female 07/14/2022 9:10 PM CDT Legal Sex Female 8:17 AM VACCINE KEY CUSTOMER LEADER Gender Identity Female 07/14/2022 9:10 PM CDT Sexual Orientation Straight 07/14/2022 9: 10 PM CDT Last Filed Vital Signs Vital Sign Reading Time Taken Comments Blood Pressure 146/74 09/09/2022 1:55 PM VACCINE KEY CUSTOMER LEADER 9/1 5 Pulse 80 11/10/2019 8:37 AM VACCINE KEY CUSTOMER LEADER Temperature 36.7 C (98.1 F) 08/12/2018 8:08 AM CDT Respiratory Rate - - Oxygen Saturation - - Inhaled Oxygen Concentration - - Weight 74.8 kg (165 lb) 09/09/2022 1:55 PM VACCINE KEY CUSTOMER LEADER Height 167.6 cm (5' 6) 06/11/2021 3:11 PM CDT Body Mass Index 26.63 06/11/2021 3:11 PM CDT Plan of Treatment Health Maintenance Due Date Last Done Comments Hepatitis C Screening 1950 RSV vaccine - (32-36 weeks) or 60+ years (1 - 1-dose 75+ series) 2023 Depression Screening (Annual PHQ-2) 10/13/2024 Fall Risk Screen (Annual) 10/13/2024 COVID-19 Vaccine ( season) 2025 07/01/2024, 12/25/2023, 07/16/2023, Additional history exists Influenza Vaccine (#1) 2025 , 07/24/2022, 07/23/2022, Additional history exists DTaP,Tdap,and Td Vaccines (4 - Td or Tdap) 06/04/2031 06/04/2021, 01/30/2015, 09/30/2008, Additional history exists Hepatitis B Vaccines Completed 11/13/2000, 11/13/2000, 06/13/2000, Additional history exists Colonoscopy Discontinued 03/23/2014 (Perf ormed elsewhere), 03/21/2009 (Performed elsewhere), 10/13/2008 (Performed elsewhere) Colorectal Cancer Screening Discontinued Colorectal Cancer Surveillance Discontinued Pneumococcal vaccine (50+ years) Completed 11/13/2016, 05/30/2014 Zoster Vaccines Completed 12/06/2021, 09/12, 04/08/2013 Bone Density Scan (Osteoporosis Screen) Discontinued 09/02/2022 Mammogram Discontinued 04/20/2025, 07/0 06/2025, 04/19/2024, Additional history exists CT Colonography Discontinued CT Colonography Discontinued Cologuard Discontinued FIT Discontinued IPV Vaccines Aged Out No longer eligi ble based on patient's age to complete this topic Medical Devices Implanted Type Area Production Packager Device Identifier Shelf Expiration Date Model / Serial / Lot Mesh Marlex 6 X 6 - Mack [id number] Implanted:Qty: 1 on 03/31/2009 Mesh or Patch Other/Legacy - See Implant Description Description:Device Manufactu rer - Medix. Device Status Text - [id number]. Ocular Lens-04/12/2018 Implanted:2017 (Quantity not on file) Ocular Lens Right: Eye Ocular Lens-04/21/2018 Implanted:2017 (Quantity not on file) Ocular Lens Left: Eye Insurance MEDICARE [facility] Advance Directives For more information, please contact: [phone] Documents on File Type Date Recorded Patient Commercial Hvac Technician Expl anation Advance Directives 03/31/2009 12:00 AM Leg acy document. See document viewer. Care Teams Architecture Professor Relationship Specialty Start Date End Date Elsewhere, Pcp PCP - General Internal Medicine 09/04/22
--- OUTSIDE RECORDS SUMMARY | 2025-07-08 12:54 | XMS_ITS | Clinical Summary ---
Author Organization [facility] Address [address] [place] [id number] Care Team Providers Care Blending Supervisor Name Role Phone Sal Arcos MD Primary [...] for each transition of care or referral. [facility] Active Allergy Reactions Criticality Noted Date Comments Amoxicillin 10/27/2014 Azithromycin 10/27/2014 Bacitracin 10/13/2009 Cefuroxime 10/09/2017 Other reaction(s): Hives / Skin Rash Latex 12/01/2014 Possible latex allergy vs adhesive Polymyxin B 10/13/2009 Medications cholecalciferol (AKA VITAMIN D3) 4000 units tablet Take 4,000 Units by mouth daily. Active Multiple Vitamins-Minerals (OCUVITE PRESERVISION OR) Act augusto Cyanocobalamin (VITAMIN B-12) 500 MCG tablet Take [...] at Not on file Legal Sex Female 7:27 AM CDT Gender Identity Not on file Sexual Orientation Not on file Last Filed Vital Signs Vital Sign Reading Time Taken Comments Blood Pressure - - Pulse - - Temperature - - Respiratory Rate - - Oxygen Saturation - - Inhaled Oxygen Concentration - - Weight 83.9 kg (185 lb) 10/27/2014 11:23 AM CASING PULLER Height 168.9 cm (5' 6.5) 10/27/2014 11:23 AM CS T Body Mass Index 29.41 10/27/2014 11:23 AM CASING PULLER Plan of Treatment Health Maintenance Due Date Last Done Comments Hep C Screening (Preventive Services) 1950 Medicare Annual Wellness Visit 1950 Dexa 2013 Zoster/Shingles Vaccine (2 of 3) 06/03/2013 04/08/2013 DTaP/Tdap/Td Vaccine (2 - Tdap) 09/30/2018 09/30/2008, 07/12/2002 RSV Vaccine (1 - 1-dose 75+ series) 2023 COVID-19 Vaccine (3 - 2024- season) 2025 12/25/2020, 11/25/2020 Influenza Vaccine (#1) 2025 , 07/23/2019, 08/12/2018, Additional history exists Hib Vaccine Aged Out 11/13/2000, 10/1999, 05/12/2000 No longer eligible based on patient's age to complete this topic Pneumococcal Vaccine 50+ Yrs Completed 11/13/2016, 05/30/2014 HepA Vaccine Aged Out No longer eligi ble based on patient's age to complete this topic HepB Vaccine Aged Out No longer eligi ble based on patient's age to complete this topic IPV (Polio) Vaccine Aged Out No longe r eligible based on patient's age to complete this topic MCV4 Vaccine Aged Out No longer eligi ble based on patient's age to complete this topic Meningococcal B Vaccine Aged Out No l onger eligible based on patient's age to complete this topic Insurance MEDICARE [facility] MEDICARE SUPPLEMENT Care Teams Blending Supervisor Relationship Specialty Start Date End Date Sal Arcos MD PCP - General 10/07/14
--- OUTSIDE RECORDS SUMMARY | 2025-07-08 12:54 | XMS_ITS | Patient Health Record ---
Author Organization [facility] Address [address] [place] [address] DAVE GUZMAN [id number] Care Team Providers Care Stock Checker Name Role Phone DANIEL GENAO MD Primary Care Provider Un available Reason For Referral No Information Problems Problem Type SNOMED Code ICD Code Onset Dates Problem Status W/U Status Risk Notes Problem History of polyp of colon (situation) (497020668) Personal history of colonic polyps (Z86.010) Active confirmed Problem Screening colonoscopy (822547400) Encounter for screening colonoscopy (Z12.11) Active confirmed Problem Diverticulosis of sigmoid colon (603594542) Diverticulosis of sigmoid colon (K57.30) Active confirmed Plan Of Treatment No Information Insurance Providers Payer Name Payer Address Payer Phone Subscriber Number Group Number Insured Name Patient Relationship to Insured Coverage Start Date Coverage End Date MEDICARE NGS [address] [place] [address] [id number] EMELY SHULTZ Self - patient is the insured [employer] SUPPLEMENT [address] [address] [place], [place] [id number] EMELY SHULTZ Self - patient is the insured
[2025-07-08 12:59] VITALS: BP 146/77; PULSE 85; RESP 20; TEMP 36.3; O2SAT 95
--- NOTE | 2025-07-08 13:05 | ED_ITS ---
HPI - General Adult General Chief complaint: Unspecified Complaint, Adult Stated complaint: unsteady, Left side tingly Time Seen by Provider: 07/08/25 12:53 History of Present Illness HPI narrative: Patient is a 75-year-old woman who is my primary care patient. I saw her yesterday in the office and we he did his start her on blood pressure medication for a mildly elevated blood pressure. We elected to start valsartan hydrochlorothiazide 80/12.5 daily. Patient woke this morning and she feels like she just not herself. She has had no numbness no tingling no weakness. She feels like her gait is somewhat unsteady but she is able to walk without any difficulty. She has not had any falls. She has had no focal defects such as weakness. She has been eating and drinking normally. Patient is prone to significant anxiety and comes in for further evaluation. Of note we started the blood pressure medicine as listed above yesterday and it has not been taken to this point. Related Data Home Medications ?Medication ?Instructions ?Recorded ?Confirmed vitamins A,C,C-zjvl-mpvmre 4,296 1 cap PO BID 05/02/24 07/07/25 mcg-226 mg-90 mg capsule (PreserVision AREDS) cholecalciferol (vitamin D3) 3,000 tab PO 05/23/25 cholecalciferol (vitamin D3) 25 75 mcg PO QDAY 5 07/07/25 mcg (1,000 unit) capsule mecobalamin (vitamin B12) 500 mcg 250 mcg PO 05/23/25 07/07/25 chewable tablet Previous Rx's ?Medication ?Instructions ?Recorded aspirin 81 mg tablet,delayed 81 mg PO DAILY #100 tabs 03/08/24 release valsartan 80 1 tab PO QDAY #90 tabs 07/07 mg-hydrochlorothiazide 12.5 mg tablet (Diovan HCT) Allergies Allergy/AdvReac Type Severity Reaction Status Date / Time bacitracin (From Allergy Intermediate Redness of Verified 07/07/25 12:38 Polysporin(bacitracin base)) Skin polymyxin B (From Allergy Intermediate Redness of Verified 07/07/25 12:38 Polysporin(bacitracin base)) Skin amoxicillin AdvReac Intermediate Insomnia Verified 07/07/25 12:38 azithromycin AdvReac Intermediate Gastrointestinal Verified 07/07/25 12:38 Upset cefuroxime (From Ceftin) AdvReac Intermediate Hives Verified 07/07/25 12:38 adhesive AdvReac Mild Redness of Verified 07/07/25 12:38 Skin Review of Systems Status of ROS: Reports: 10 or more systems reviewed and unremarkable except as noted in History and below [facility] Medical History Hypertension ?I10 - Essential (primary) hypertension (ICD-10) CVA (cerebral vascular accident) ?I63.9 - Cerebral infarction, unspecified (ICD-10) Osteopenia ?M85.80 - Other specified disorders of bone density and structure, unspecified site (ICD-10) Macular degeneration ?H35.30 - Unspecified macular degeneration (ICD-10) History of colon polyps (2008) ?Z86.0100 - Personal history of colon polyps, unspecified (ICD-10) Rosacea ?L71.9 - Rosacea, unspecified (ICD-10) Allergic rhinitis ?J30.9 - Allergic rhinitis, unspecified (ICD-10) Migraines ?G43.909 - Migraine, unspecified, not intractable, without status migrainosus (ICD-10) Bilateral hip bursitis (04/28/24) ?M70.71 - Other bursitis of hip, right hip (ICD-10) ?M70.72 - Other bursitis of hip, left hip (ICD-10) Cerebrovascular accident (03/07/24) ?I63.9 - Cerebral infarction, unspecified (ICD-10) Thrombophlebitis ?I80.9 - Phlebitis and thrombophlebitis of unspecified site (ICD-10) 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 - Genetic susceptibility to other disease (ICD-10) Family history of breast cancer ?Z80.3 - Family history of malignant neoplasm of breast (ICD-10) Osteoarthritis, multiple sites ?M15.9 - Polyosteoarthritis, unspecified (ICD-10) BRITTANY on CPAP ?G47.33 - Obstructive sleep apnea (adult) (pediatric) (ICD-10) Thyroid nodule ?E04.1 - Nontoxic single thyroid nodule (ICD-10) Orbital lesion ?H05.89 - Other disorders of orbit (ICD-10) Gastroesophageal reflux disease ?K21.9 - Gastro-esophageal reflux disease without esophagitis (ICD-10) Obstructive sleep apnea ?G47.33 - Obstructive sleep apnea (adult) (pediatric) (ICD-10) Melanoma ?C43.9 - Malignant melanoma of skin, unspecified (ICD-10) Renal cyst ?N28.1 - Cyst of kidney, acquired (ICD-10) Surgical History History of cataract surgery ?Z98.49 - Cataract extraction status, unspecified eye (ICD-10) History of left inguinal hernia repair ?Z98.890 - Other specified postprocedural states (ICD-10) ?Z87.19 - Personal history of other diseases of the digestive system (ICD-10) History of section ?Z98.891 - History of uterine scar from previous surgery (ICD-10) Family History Father High blood pressure Stroke Diabetes Sister Breast cancer, Onset Age: 54 Migraines Mother Stomach cancer Paternal Grandfather Rectal cancer Maternal Grandfather Alcohol dependence Diabetes Maternal Grandmother Osteoporosis Social History Narrative: She lives independently in [facility] [place]. She drives. She does not smoke. She does not drink alcohol. Healthcare power of assistant district attorney is primarily her sister, Tommy, secondarily her daughter Annette Guillaume and then her daughter, Jacqui. Code status is full. What is your current living situation?: I presently have a place to live Problems where you live: no known problems Problems where you live details: N/A In the past 12 months, utilities in danger of being shut off: no In past 12 months, lack of transportation kept you from medical appts, meetings, work, or getting things needed for daily living: no In the past 12 mos, have been you worried that your food would run out before you had money to buy more?: never true In the past 12 mos, the food you bought just didn't last and you didn't have money to buy more?: never true Highest level of school completed/degree received: Master's degree Smoking Status: Never smoker How often do you have a drink containing alcohol: never AUDIT-C Alcohol total score: 0 Non-prescribed substance use: denies use Caffeine: No How often does anyone, including family, friends and others, physically hurt you : never How often does anyone, including family, friends and others, insult or talk down to you: never How often does anyone, including family, friends and others, threaten you with harm: never How often does anyone, including family, friends and others, scream or curse at you: never service: No Exam Narrative: Exam Narrative: EXAM GENERAL: Patient appears comfortable and well. EYES: No scleral icterus. LYMPH: No supraclavicular or cervical lymphadenopathy. SKIN: Visible skin seen during exam normal or with benign process only. EXT: No dependent lower extremity pedal edema. HEART: Regular rate and rhythm with no murmurs, rubs, or gallops. LUNGS: Clear to auscultation bilaterally with no crackles or wheezes. ABD: Soft, non tender, non distended. PSYCH: Good eye contact, speech is not pressured. Neurologic cranial nerves 2-12 grossly intact no focal defects. Const: Vital Signs, click to edit/add: Vital Signs - 24 hr 07/08/25 12:59 Temperature 97.4 F L Pulse Rate [Pulse Oximeter] 85 Respiratory Rate 20 Blood Pressure [Ri ght Upper Arm] 146/77 H Pulse Oximetry 95 Oxygen Delivery Me thod Room Air Course Course ED Course: Do not believe she has significant pathology but we did send off comprehensive metabolic panel CBC EKG UA will follow up based on those results and also watch her ambulate. Vital Signs Vital signs: Initial Vital Signs Temperature 97.4 F L 07/08/25 12:59 Temperature Source Temporal Artery Scan 07/08/25 12:59 Pulse Rate 85 07/08/25 12:59 Respiratory Rate 20 07/08/25 12:59 Blood Pressure 146/77 H 07/08/25 12:59 Blood Pressure Mean 100 07/08/25 12:59 Blood Pressure Position Supine 07/08/25 12:59 Pulse Oximetry 95 07/08/25 12:59 Oxygen Delivery Method Room Air 07/08/25 12:59 Vital Signs Temperature 97.4 F L 07/08/25 12:59 Pulse Rate 85 07/08/25 12:59 Respiratory Rate 20 07/08/25 12:59 Blood Pressure 146/77 H 07/08/25 12:59 Pulse Oximetry 95 07/08/25 12:59 Oxygen Delivery Method Room Air 07/08/25 12:59 Temperature 97.4 F L 07/08/25 12:59 Pulse Rate 85 07/08/25 12:59 Respiratory Rate 20 07/08/25 12:59 Blood Pressure 146/77 H 07/08/25 12:59 Pulse Oximetry 95 07/08/25 12:59 Oxygen Delivery Method Room Air 07/08/25 12:59 Medical Decision Making MDM Narrative Medical decision making narrative: Patient my primary care patient who presents with some unsteadiness today. She has had a cerebrovascular accident in the past but has no neurologic symptoms at this time. She did have full evaluation here in the emergency room labs look stable but she does have evidence of UTI. Her urine will be sent for cultures we treated with Bactrim. She is offered reassurance . She will begin her antihypertensive as well and will follow-up with me in clinic next week. Lab Data Labs: Lab Results 07/08/25 07/08/25 Range/Units 13:22 13:55 WBC 4.65 (4.50-11.00) K/uL RBC 5.17 (4.00-5.20) m/uL Hgb 14.8 (12.0-16.0) gm/dL Hct 44.8 (33.0-51.0) % MCV 87 (80-100) fL MCH 29 (26-34) pg MCHC 33 (32-36) gm/dL RDW Coeff of Renata 13.0 (11.5-15.5) % Plt Count 251 (140-440) K/uL Neut % (Auto) 71.7 (42.0-72.0) % Lymph % (Auto) 16.6 L (20-44) % Island % (Auto) 9.9 (0.0-11.0) % Eos % (Auto) 0.9 (0.0-7.0) % Baso % (Auto) 0.9 (0.0-3.0) % Neut # (Auto) 3.34 (1.7-7.0) K/uL Lymph # (Auto) 0.80 L (0.90-2.90) K/uL Island # (Auto) 0.50 (0.00-0.90) K/UL Eos # (Auto) 0.04 (0.00-0.50) K/uL Baso # (Auto) 0.04 (0.00-0.30) K/uL Abs Immat Gran (auto) 0.00 (0.00-0.30) K/uL Imm/Tot Granulo (auto) 0.0 % Sodium 137 (135-149) mmol/L Potassium 4.2 (3.6-5.1) mmol/L Chloride 101 (96-114) mmol/L Carbon Dioxide 29 (20-32) mmol/L Anion Gap 7 (7-15) mEq/L BUN 13 (7-30) mg/dL Creatinine 0.7 (0.5-1.5) mg/dL Estimated GFR 89 ml/min Glucose 100 (60-115) mg/dL Calcium 9.1 (8.4-10.6) mg/dL Total Bilirubin 0.7 (0.1-1.5) mg/dL AST 23 (12-35) U/L ALT 16 (4-35) U/L Alkaline Phosphatase 86 (40-150) U/L Total Protein 6.6 (6.0-8.3) g/dL Albumin 3.9 (3.3-5.0) g/dL Urine Color Yellow (Yellow) Urine Appearance Clear (Clear) Urine pH 7.0 (5.0-8.5) Ur Specific [place] 1.010 (1.000-1.030) Urine Protein Negative (Negative) Urine Glucose (UA) Negative (Negative) Urine Ketones Negative (Negative) Urine Blood 1+ A (Negative) Urine Nitrite Negative (Negative) Urine Bilirubin Negative (Negative) Urine Urobilinogen 0.2 (0.2-1.0) Ur Leukocyte Esterase 1+ A (Negative) Urine RBC 0-2 (0-2) Urine WBC 2-5 (0-5) Urine WBC Clumps Few A (None) Ur Squamous Epith Cells Few (None-Few) Urine Bacteria Few A (None) Discharge Plan Discharge Clinical Impression: Acute UTI Patient Disposition: Home, Self-Care Condition: Stable Instructions: Acute Urinary Retention in Women (ED) Additional Instructions: Bactrim As directed start your new blood pressure medicine as well. Call Dr. Gonzalez's office on Friday to be added onto the schedule next week. Activity Level: No Restrictions Discharge Diet: Regular Prescriptions: No Action PreserVision AREDS 4,296 mcg-226 mg-90 mg capsule 1 cap PO BID cholecalciferol (vitamin D3) 3,000 tab PO cholecalciferol (vitamin D3) 25 mcg (1,000 unit) capsule 75 mcg PO QDAY mecobalamin (vitamin B12) 500 mcg tablet,chewable 250 mcg PO valsartan-hydrochlorothiazide [Diovan HCT] 80-12.5 mg tablet 1 tab PO QDAY Qty: 90 2RF aspirin 81 mg Tablet,Delayed Release (Dr/Ec) 81 mg PO DAILY Qty: 100 0RF Follow Up/Referrals: Yayo Gonzalez MD [Primary Care Provider, Internal Medicine] Stand Alone Forms: [employer] Info Instructions
[2025-07-08 13:37] LABS: Hematocrit* 44.8 % (33.0-51.0); Hemoglobin* 14.8 gm/dL (12.0-16.0); Immature Granulocytes Abs Auto 0.00 K/uL (0.00-0.30); Immature Granulocytes Pct Auto 0.0 %; Mean Corpuscular HGB Conc 33 gm/dL (32-36); Mean Corpuscular Hemoglobin 29 pg (26-34); Mean Corpuscular Volume 87 fL (80-100); RDW Coefficient of Variation % 13.0 % (11.5-15.5); Red Blood Count* 5.17 m/uL (4.00-5.20); White Blood Count* 4.65 K/uL (4.50-11.00)
[2025-07-08 13:43] LABS: Lymphocytes Absolute Auto 0.80 K/uL (0.90-2.90); Slide Review Reflex No
[2025-07-08 13:45] LABS: Chloride* 101 mmol/L (96-114)
[2025-07-08 13:46] LABS: Albumin* 3.9 g/dL (3.3-5.0); Potassium* 4.2 mmol/L (3.6-5.1); Sodium* 137 mmol/L (135-149)
[2025-07-08 13:48] LABS: Blood Urea Nitrogen* 13 mg/dL (7-30); Creatinine* 0.7 mg/dL (0.5-1.5); Estimated Glomerular Filt Rate 89 ml/min
[2025-07-08 13:49] LABS: Alanine Aminotransferase* 16 U/L (4-35); Alkaline Phosphatase* 86 U/L (40-150); Anion Gap 7 mEq/L (7-15); Aspartate Amino Transferase* 23 U/L (12-35); Bilirubin Total* 0.7 mg/dL (0.1-1.5); Calcium* 9.1 mg/dL (8.4-10.6); Carbon Dioxide* 29 mmol/L (20-32); Glucose* 100 mg/dL (60-115); Total Protein* 6.6 g/dL (6.0-8.3)
[2025-07-08 14:08] LABS: Appearance Urine Clear (Clear)
== END 2025-07-08 14:54 | disposition home or self-care (01) ==
PROVIDERS: Emergency Provider Internal Medicine; PCP Internal Medicine
DX: N39.0 Urinary tract infection, site not specified (principal); R26.81 Unsteadiness on feet; Z79.899 Other long term (current) drug therapy
CPT/HCPCS: 36415; 80053; 81001; 81003; 85025; 87086; 93005; 99283; 99284

== ENCOUNTER 2025-07-13 09:12 | Outpatient (CLI) | payer MEDICARE, BC, SELFPAY | END 2025-07-13 09:13 | disposition home or self-care (01) | LOC: NFLDREF 07-15 14:23 | PROVIDERS: PCP Internal Medicine; Referring Provider Internal Medicine; Visit Provider Internal Medicine | DX: R39.89 Other symptoms and signs involving the genitourinary system (principal); N39.0 Urinary tract infection, site not specified | CPT/HCPCS: 87086; 87186 ==